=== PATIENT | female | born 1955 | race Caucasian/White ===

== ENCOUNTER 2017-12-23 08:35 | Inpatient (IN) ==
[2017-12-23] MEDS ORDERED: Ipratropium/Albuterol Neb 3 ML IH ONE (08:49)
[2017-12-23] MEDS ORDERED: Albuterol 2.5 MG/3 ML NEBULIZER IH ONE (08:49)
[2017-12-23] MEDS ORDERED: predniSONE 20 MG TABLET PO ONE (08:49)
[2017-12-23] MEDS ORDERED: 0.9 % Sodium Chloride 1,000 ML IVC ONE (08:49)
--- NOTE | 2017-12-23 08:53 | Emergency Department Note ---
Disposition Clinical Impression: Acute exacerbation of chronic obstructive airways disease Community acquired pneumonia Qualifiers: Laterality: left Lung location: unspecified part of lung Qualified Code(s): J18.9 - Pneumonia, unspecified organism Disposition: Admitted As Inpatient Condition: Fair Referrals: Shawn Mccoy MD [Primary Care Provider] - Forms: ED Satisfaction Letter Time of Disposition: 12:48 General Adult HPI - General Chief complaint: ED Shortness of Breath/Dyspnea Stated complaint: ELIZABETH Time Seen by Provider: 12/23/17 08:42 Source: patient, family Mode of arrival: ambulatory Limitations: no limitations - History of Present Illness HPI Narrative: This is a 62-year-old female for history of COPD who reports a cough with pleuritic chest pain worsening over the course of the last 2 weeks. Cough is nonproductive. In addition, she reports episodes of lightheadedness that have been worsening during this time. She denies chest pain separate from the cough. No nausea or vomiting. She states it has been a long time since she had a course of prednisone because of her COPD. Pain Scale: 9 - Related Data Previous Rx's Medication Instructions Recorded Tramadol HCl [Ultram] 50 mg PO TID PRN 4 Days #12 tab 10/30/17 Lidocaine Patch [Lidoderm 5% patch] 1 each TP DAILY 7 Days #7 11/18/17 adh..patch Allergies Allergy/AdvReac Type Severity Reaction Status Date / Time No Known Allergies Allergy Verified 12/23/17 08:40 All systems ED: reviewed and negative except as stated. Cardiovascular: Reports: chest pain, dyspnea on exertion Respiratory: Reports: dyspnea Past Medical History - Past Medical History Medical history: Reports: arthritis, kidney stones, osteoporosis Psychiatric history: Reports: depression [employer]WORKER [employer] history: Reports: no [employer]WORKER [employer]OR history - Social History Smoking Status: Current every day smoker Smokeless Tobacco Status: No Alcohol use: Reports: none Drug use: Reports: none Physical Exam - General Limitations: no limitations - Head Head exam: atraumatic, normocephalic, normal inspection - Eye Eye exam: Present: normal appearance, PERRL, EOMI - Chest Chest inspection: Present: normal inspection, symmetric chest wall rise - Respiratory Respiratory exam: Present: respiratory distress (Mild respiratory distress), prolonged expiratory phase, other (There are clear breath sounds in the apices and bases, diminished bibasilar) - Cardiovascular Cardiovascular exam: Present: normal rhythm, tachycardia, normal heart sounds - Abdominal Exam Abdominal exam: Present: soft, Non-Tender. Absent: tenderness, distention, guarding, rebound, rigidity - Extremities Exam Extremities exam: Present: normal inspection, full ROM. Absent: tenderness, pedal edema - Neurological Exam Neurological exam: Present: alert, oriented X3 - Psychiatric Psychiatric exam: Present: normal affect, normal mood - Skin Skin exam: Present: warm, dry, intact, normal color Course Course Narrative: This is a 62-year-old female with history of COPD no with pleuritic chest pain and cough worsening for the last 2 weeks, concerning for COPD exacerbation, pneumonia, or pulmonary embolism. Vital Signs Temperature 97.6 F 12/23/17 08:40 Pulse Rate 133 12/23/17 08:40 Respiratory Rate 24 12/23/17 08:40 Blood Pressure 102/68 12/23/17 08:40 O2 Sat by Pulse Oximetry 84 12/23/17 08:40 Temperature 97.6 F 12/23/17 08:52 Pulse Rate 106 12/23/17 12:20 Respiratory Rate 21 12/23/17 12:20 Blood Pressure 123/79 12/23/17 12:20 O2 Sat by Pulse Oximetry 98 12/23/17 09:42 Oxygen Delivery Oxygen Delivery Nasal Cannula Medical Decision Making - [facility] Narrative Medical decision making narrative: This is a 62-year-old female who appears to have serious left lung pathology. Whether she has a significant pneumonia because of left main bronchus plugging or neoplastic process is unclear. Cefepime and azithromycin were given similar this could be a pneumonia I discussed her case with the on-call hospitalist, who accepted her for admission I discussed the case with the on-call online marketing analyst, and a consult for him, and ordered her to be nothing by mouth after midnight. - Lab Data Lab results narrative: CBC showed anemia at 11.3 and 34.1 BMP showed hypokalemia at 3.0 Troponin was low D-dimer was grossly elevated at 1391 Result diagrams: 12/23/17 09:03 12/23/17 09:03 Lab Results 12/23/17 12/23/17 12/23/17 Range/Units 09:03 09:03 09:03 WBC 7.8 (4.3-11.1) K/mcL RBC 3.84 (3.82-4.97) M/mcL Hgb 11.3 L (11.5-15.4) g/dL Hct 34.1 L (35.3-44.9) % MCV 88.8 (83.0-100.0) fL MCH 29.4 (28.0-33.3) pg MCHC 33.1 (31.6-35.5) g/dL RDW 14.5 (11.5-14.5) % Plt Count 268 (140-400) K/mcL MPV 8.1 L (9.4-12.4) fL Immature Gran % 0.6 (0-4) % Seg Neutrophils % 84.1 % Lymphocytes % 7.3 % Monocytes % 7.9 % Eosinophils % 0.0 % Basophils % 0.1 % Neutrophils # 6.5 (1.6-8.9) K/mcL Lymphocytes # 0.6 (0.6-4.6) K/mcL Monocytes # 0.6 (0.0-1.3) K/mcL Eosinophils # 0.0 (0.0-0.6) K/mcL Basophils # 0.0 (0.0-0.2) K/mcL D-Dimer 1391 H (0-500) ng/mLFEU Sodium 138 (136-145) mEq/L Potassium 3.0 L (3.5-5.1) mEq/L Chloride 103 (98-107) mEq/L Carbon Dioxide 26 (23-29) mEq/L BUN 11 (8-23) mg/dL Creatinine 0.54 L (0.60-1.20) mg/dL Est GFR ( Amer) > 60 (> 60) Est GFR (Non-Af Amer) > 60 (> 60) BUN/Creatinine Ratio 20 (6-26) Glucose 148 H (70-105) mg/dL Calculated Osmolality 288 (280-300) Lactic Acid (0.5-2.2) mmol/L Calcium 8.6 (8.6-10.3) mg/dL Troponin I < 0.03 (< 0.04) ng/mL 12/23/17 Range/Units 09:03 WBC (4.3-11.1) K/mcL RBC (3.82-4.97) M/mcL Hgb (11.5-15.4) g/dL Hct (35.3-44.9) % MCV (83.0-100.0) fL MCH (28.0-33.3) pg MCHC (31.6-35.5) g/dL RDW (11.5-14.5) % Plt Count (140-400) K/mcL MPV (9.4-12.4) fL Immature Gran % (0-4) % Seg Neutrophils % % Lymphocytes % % Monocytes % % Eosinophils % % Basophils % % Neutrophils # (1.6-8.9) K/mcL Lymphocytes # (0.6-4.6) K/mcL Monocytes # (0.0-1.3) K/mcL Eosinophils # (0.0-0.6) K/mcL Basophils # (0.0-0.2) K/mcL D-Dimer (0-500) ng/mLFEU Sodium (136-145) mEq/L Potassium (3.5-5.1) mEq/L Chloride (98-107) mEq/L Carbon Dioxide (23-29) mEq/L BUN (8-23) mg/dL Creatinine (0.60-1.20) mg/dL Est GFR ( Amer) (> 60) Est GFR (Non-Af Amer) (> 60) BUN/Creatinine Ratio (6-26) Glucose (70-105) mg/dL Calculated Osmolality (280-300) Lactic Acid 0.8 (0.5-2.2) mmol/L Calcium (8.6-10.3) mg/dL Troponin I (< 0.04) ng/mL - Radiology Data Radiology results reviewed: Yes I reviewed the patient's radiology results. CT chest showed a masslike consolidation with volume loss of the left upper and lower lobes as well as obstruction of the left mainstem bronchus concerning for infectious or neoplastic process. - EKG Data EKG #1 EKG attestation: Yes I reviewed and interpreted this EKG. EKG results narrative: ECG shows to sinus tachycardia, 112 bpm, wandering baseline, no ST elevations or depressions, normal T waves Critical Care Time Critical Care Time: Yes Total Critical Care Time: 25 Attestation: 25 minutes of critical care time was spent independent of other procedures.
[2017-12-23 09:16] LABS: Basophils % 0.1 %; Hematocrit 34.1 % (35.3-44.9); Hemoglobin 11.3 g/dL (11.5-15.4); Immature Granulocytes % 0.6 % (0-4); Lymphocytes # 0.6 K/mcL (0.6-4.6); Lymphocytes % 7.3 %; Mean Corpuscular HGB Conc 33.1 g/dL (31.6-35.5); Mean Corpuscular Hemoglobin 29.4 pg (28.0-33.3); Mean Corpuscular Volume 88.8 fL (83.0-100.0); Mean Platelet Volume 8.1 fL (9.4-12.4); Monocytes # 0.6 K/mcL (0.0-1.3); Monocytes % 7.9 %; Neutrophils # 6.5 K/mcL (1.6-8.9); Platelet Count 268 K/mcL (140-400); Red Blood Count 3.84 M/mcL (3.82-4.97); Red Cell Distribution Width 14.5 % (11.5-14.5); Segmented Neutrophils % 84.1 %
[2017-12-23 09:42] LABS: Troponin I < 0.03 ng/mL (< 0.04)
[2017-12-23 09:43] LABS: BUN/Creatinine Ratio 20 (6-26); Blood Urea Nitrogen 11 mg/dL (8-23); Calcium 8.6 mg/dL (8.6-10.3); Carbon Dioxide 26 mEq/L (23-29); Chloride 103 mEq/L (98-107); Glucose 148 mg/dL (70-105); Osmolality,Calculated 288 (280-300); Sodium 138 mEq/L (136-145); eGFR For Non-African Americans > 60 (> 60)
[2017-12-23] MEDS ORDERED: Isovue-370 500 ML INFUS..BTL IV ONE (11:10)
[2017-12-23] MEDS ORDERED: Azithromycin 250 MG TABLET PO ONE (12:22)
[2017-12-23] MEDS ORDERED: Naloxone 0.4 MG/ML INJ IVP PRN (14:16)
--- NOTE | 2017-12-23 14:21 | Internal Med History&Physical ---
<Delroy Cooney S - Last Filed: 12/23/17 14:16> Date of Encounter: 12/23/17 Time of Encounter: 14:20 Internal Medicine - H&P: HPI Chief complaint: "SOB" Admitted From: Home Plans for Post Hospital Care: Home History of present illness: Ms. Mae is a 62 year old female with PMH of COPD, anxiety, arthritis, kidney stones, depression, and osteoporosis. She reports that for the last week she has had URI symptoms and cough. Cough has been nonproductive and she states that she has been feeling very weak. The pt states she has a hx of COPD and that she has been having increasing SOB from her baseline. She doesn't take nebulizers as much as she should, according to her. The pt is requring 4L of O2 at the hospital but denies home oxygen use. Pt isn't very active and states that she needs to stop to breathe and has trouble taking a deep breath. The pt has reproducable chest pain in the sternal area most likely secondary to coughing. Pt has no hx of [place] or LHC. She denies a previous hx of cardiac workup. The pt denies weight loss, fevers, chills, n/v/d, abd pain, or edema. In the ER the pt has a (-) troponin, lactic acid of 0.8. D dimer is 1391 CXR showed Left-sided mediastinal shift, likely related to left-sided volume loss, new since November 18, 2017. Near complete opacification of the left hemithorax, likely related to obstructive atelectasis versus pneumonia, new since November 18, 2017. Multiple lung nodules in right hemithorax measuring up to 2 cm, may be related to metastatic disease or infection, new since April 26, 2011. CT chest showed -no evidence of acute pulmonary emobli -7 x 4 cm masslike consolidation at the left hilar/parahilar region, may be related to neoplastic process, atelectasis or infection. -Multiple nodular consolidations in the right hemithorax, with the largest measuring up to 1.4 cm in the peripheral right lower lobe, may be related to infection/inflammation or metastatic disease, new since August 31, 2017. -Bilateral pleural effusions, large on the left and mild on the right, new since the prior study. -Tissue sampling with bronchoscopy may be beneficial. Past Med Surg Social Fam HX - Past Medical History Medical history: arthritis, kidney stones, osteoporosis Additional medical history: current right kidney stones- 12/2017 Psychiatric history: depression - Past Surgical History Additional surgical history: back surgery - Social History Smoking Status: Current every day smoker Smokeless Tobacco Status: No Alcohol use: none Drug use: none Internal Medicine - H&P: Meds Albuterol Sulfate [Ventolin Hfa] 2 puff IH Q4H PRN 12/23/17 [History] Amitriptyline HCl [Amitriptyline HCl] 150 mg PO HS 12/23/17 [History] Aspirin [Lo-Dose Aspirin EC] 81 mg PO DAILY 12/23/17 [History] Biotin 1 mg PO DAILY 12/23/17 [History] Budesonide/Formoterol 80/4.5 [Symbicort 80/4.5] 2 puff IH BID 12/23/17 [History ] Meloxicam [Meloxicam] 7.5 mg PO DAILY 12/23/17 [History] Multivitamin [One Daily Essential] 1 tab PO DAILY 12/23/17 [History] Multivits Min/Iron/FA/Herb#186 [Hair, Skin & Nails Caplet] 1 tab PO DAILY [History] Omeprazole [PriLOSEC] 20 mg PO DAILY 12/23/17 [History] Prazosin [Minipress] 1 mg PO HS 12/23/17 [History] Tizanidine HCl 2 mg PO Q8H PRN 12/23/17 [History] Trazodone HCl 100 mg PO HS 12/23/17 [History] Turmeric Root Extract [Turmeric] 500 mg PO DAILY 12/23/17 [History] Venlafaxine HCl [Venlafaxine HCl ER] 150 mg PO DAILY 12/23/17 [History] Vitamin B Complex [B Complex] 1 tab PO DAILY 12/23/17 [History] diazePAM [Valium] 3 mg PO TID PRN 12/23/17 [History] 3 Allergy/AdvReac Type Severity Reaction Status Date / Time No Known Allergies Allergy Verified 12/23/17 13:19 All Systems PM: A 10-system review of systems was performed and is negative for pertinent findings except as documented above in the HPI. - Constitutional Constitutional: fatigue, no chills, no fever(s) - Cardiovascular Cardiovascular ROS IM: chest pain, dyspnea, dyspnea on exertion, no lightheadedness, no palpitations, no paroxysmal nocturnal dyspnea - Respiratory Respiratory: cough, dyspnea on exertion, wheezing - Gastrointestinal Gastrointestinal: no abdominal pain, no nausea, no vomiting - Musculoskeletal Musculoskeletal ROS IM: no joint swelling, no muscle cramps - Integumentary Integumentary IM: no erythema - Neurological Neurological ROS: no numbness, no weakness - Psychiatric Psychiatric: depression - Constitutional Vitals: Temp Pulse Resp BP Pulse Ox 97.6 F 117 22 138/95 95 12/23/17 08:52 12/23/17 13:05 12/23/17 13:05 12/23/17 13:05 12/23/17 13:05 Exam: general - nad , aox3 cardio - tacycardia, reproducible chest pain in epigastric area lungs - decreasedbreath sounds left >right, mild crackles abd - NTND, no rebound or guarding skin - intact extremities - no edema Internal Med - H&P Results - Labs CBC & Chem 7: 12/23/17 09:03 12/23/17 09:03 - Assessment and plan (1) Acute exacerbation of chronic obstructive airways disease Current Visit: Yes Status: Acute Assessment and plan: Pt has hx of COPD, reports that the last week has been having increasing SOB from baseline. Has URI symptoms, including nonproductive cough. Denies weight loss, fevers/chills. In the ER the pt has a (-) troponin, lactic acid of 0.8. D dimer is 1391 CXR showed Left-sided mediastinal shift, likely related to left-sided volume loss, new since November 18, 2017. Near complete opacification of the left hemithorax, likely related to obstructive atelectasis versus pneumonia, new since November 18, 2017. Multiple lung nodules in right hemithorax measuring up to 2 cm, may be related to metastatic disease or infection, new since April 26, 2011. CT chest showed -no evidence of acute pulmonary emobli -7 x 4 cm masslike consolidation at the left hilar/parahilar region, may be related to neoplastic process, atelectasis or infection. -Multiple nodular consolidations in the right hemithorax, with the largest measuring up to 1.4 cm in the peripheral right lower lobe, may be related to infection/inflammation or metastatic disease, new since August 31, 2017. -Bilateral pleural effusions, large on the left and mild on the right, new since the prior study. -Tissue sampling with bronchoscopy may be beneficial. -Nodular prominence of the right adrenal gland measuring 1.1 x 1.8 cm, new since the prior study, suspicious for metastatic disease. -Mild chronic appearing anterior wedge deformity of T5, new since February 28, 2011. Lytic lesion in the anterior aspect of T5 vertebral body, likely new since February 28, 2011. Bony metastasis cannot be excluded. Plan: -azithromycin 500mg PO daily, rocephin 1000mg IVP -Robutusin 10mL q6hr scheduled -albuterol 3mL q4hr and q6hr prn SOB/wheeze -prednisone 60mg PO daily -NPO at midnight for bronchoscopy -keep o2 >90% -cbc in AM -cmp in AM -check myoplasma IgM and strep pneumo/legionella urine antigens (2) Community acquired pneumonia Current Visit: Yes Status: Acute Assessment and plan: Pt reports increasing SOB and cough. She has a 40+ year smoking hx. -denies fever/chills -denies weight loss -denies sputum production CXR showed Left-sided mediastinal shift, likely related to left-sided volume loss, new since November 18, 2017. Near complete opacification of the left hemithorax, likely related to obstructive atelectasis versus pneumonia, new since November 18, 2017. Multiple lung nodules in right hemithorax measuring up to 2 cm, may be related to metastatic disease or infection, new since April 26, 2011. Plan: -azithromycin 500mg PO daily, rocephin 1g IV q24hr -duonebs q4hr and q6hr prn sob/wheeze -10mL Robutusin q6hr scheduled -PO prednisone 40mg daily -check myoplasma IgM and strep pneumo/legionella urine antigens Qualifiers: Laterality: left Lung location: unspecified part of lung Qualified Code(s ): J18.9 - Pneumonia, unspecified organism (3) Lung cancer Current Visit: Yes Status: Acute Assessment and plan: CXR showed Left-sided mediastinal shift, likely related to left-sided volume loss, new since November 18, 2017. Near complete opacification of the left hemithorax, likely related to obstructive atelectasis versus pneumonia, new since November 18, 2017. Multiple lung nodules in right hemithorax measuring up to 2 cm, may be related to metastatic disease or infection, new since April 26, 2011. CT chest showed -no evidence of acute pulmonary emobli -7 x 4 cm masslike consolidation at the left hilar/parahilar region, may be related to neoplastic process, atelectasis or infection. -Multiple nodular consolidations in the right hemithorax, with the largest measuring up to 1.4 cm in the peripheral right lower lobe, may be related to infection/inflammation or metastatic disease, new since August 31, 2017. -Bilateral pleural effusions, large on the left and mild on the right, new since the prior study. -Tissue sampling with bronchoscopy may be beneficial. -Nodular prominence of the right adrenal gland measuring 1.1 x 1.8 cm, new since the prior study, suspicious for metastatic disease. -Mild chronic appearing anterior wedge deformity of T5, new since February 28, 2011. Lytic lesion in the anterior aspect of T5 vertebral body, likely new since February 28, 2011. Bony metastasis cannot be excluded. Elevated d-dimer 1391 Plan: -bronchoscopy in the morning, NPO at midnight -stat pulmonology consult, DR Paige already spoken to. Will do procedure in AM -r/o metastatic disease, may benefit from PET scan (4) Hypokalemia Current Visit: Yes Status: Acute Assessment and plan: Potassium of 3.0 on admission -replaced with 40mEq potassium chloride PO BID -recheck CMP in AM - Time Spent With Patient Total time spent is greater than 50% in coordination of care (as documented) at patient's floor/unit and/or counseling patient: 25 - 35 minutes <Lilian Sandhu - Last Filed: 12/23/17 15:47> Date of Encounter: 12/23/17 Internal Medicine - H&P: HPI History of present illness: Ms. Mae is a 62 year old female All Systems PM: A 10-system review of systems was performed and is negative for pertinent findings except as documented above in the HPI. - Constitutional Vitals: Temp Pulse Resp BP Pulse Ox 97.6 F 105 18 127/79 93 12/23/17 15:01 12/23/17 15:01 12/23/17 15:42 12/23/17 15:01 12/23/17 15:42 Internal Med - H&P Results - Labs CBC & Chem 7: 12/23/17 09:03 12/23/17 09:03 - Assessment and plan (1) Community acquired pneumonia Current Visit: Yes Status: Acute Qualifiers: Laterality: left Lung location: unspecified part of lung Qualified Code(s ): J18.9 - Pneumonia, unspecified organism (2) Acute exacerbation of chronic obstructive airways disease Current Visit: Yes Status: Acute (3) Lung cancer Current Visit: Yes Status: Acute Qualifiers: Laterality: unspecified laterality Lung location: unspecified part of lung Qualified Code(s): C34.90 - Malignant neoplasm of unspecified part of unspecified bronchus or lung (4) Hypokalemia Current Visit: Yes Status: Acute - Time Spent With Patient Total time spent is greater than 50% in coordination of care (as documented) at patient's floor/unit and/or counseling patient: - Attending Attestation I have seen and examined this patient independently. I have discussed with resident physician Dr. Cooney regarding the management plan. Agree with the documentation.
[2017-12-23] MEDS ORDERED: Ipratropium/Albuterol Neb 3 ML IH PRN (14:35)
[2017-12-23] MEDS ORDERED: Azithromycin 250 MG TABLET PO SCH (14:45)
[2017-12-23] MEDS: predniSONE 20 MG TABLET PO SCH (15:37)
[2017-12-23] MEDS: cefTRIAXone 1,000 MG in Water for inj. (sterile) 20 ML 10 ML IVP SCH (15:37)
[2017-12-23] MEDS: Ipratropium/Albuterol Neb 3 ML IH SCH ×2 (15:41→22:36)
[2017-12-23] MEDS ORDERED: tiZANidine 4 MG TABLET PO PRN (15:43)
[2017-12-23] MEDS ORDERED: Cefepime HCl 1,000 MG in Water for inj. (sterile) 20 ML 10 ML IVP SCH (16:00)
[2017-12-23] MEDS: Nicotine 21 MG PATCH.TD24 TD SCH (16:23)
[2017-12-23] MEDS: *HR* Heparin 5,000 UNIT/ML VIAL SQ SCH (16:53)
[2017-12-23] MEDS: GuaiFENesin/Codeine Oral Soln 5 ML UDC PO SCH ×2 (16:53→23:59)
[2017-12-23] MEDS: traZODone 50 MG TABLET PO SCH (20:16)
[2017-12-23] MEDS: Budesonide/Formoterol 80/4.5 MDI IH SCH (22:36)
[2017-12-24] MEDS: Ipratropium/Albuterol Neb 3 ML IH SCH ×4 (03:45→21:52)
[2017-12-24 04:08] LABS: Basophils % 0.2 %; Hematocrit 29.1 % (35.3-44.9); Immature Granulocytes % 0.6 % (0-4); Lymphocytes # 0.8 K/mcL (0.6-4.6); Lymphocytes % 11.3 %; Mean Corpuscular HGB Conc 32.6 g/dL (31.6-35.5); Mean Corpuscular Hemoglobin 28.7 pg (28.0-33.3); Mean Corpuscular Volume 87.9 fL (83.0-100.0); Mean Platelet Volume 8.6 fL (9.4-12.4); Monocytes # 0.4 K/mcL (0.0-1.3); Monocytes % 6.5 %; Neutrophils # 5.4 K/mcL (1.6-8.9); Platelet Count 281 K/mcL (140-400); Red Blood Count 3.31 M/mcL (3.82-4.97); Red Cell Distribution Width 14.4 % (11.5-14.5); Segmented Neutrophils % 81.4 %
[2017-12-24 04:10] LABS: Hemoglobin 9.5 g/dL (11.5-15.4)
[2017-12-24 04:14] LABS: INR 1.2; Prothrombin Time 13.7 Seconds (9.4-12.1)
[2017-12-24 04:31] LABS: Alanine Aminotransferase 11 Units/L (7-52); Albumin 2.8 g/dL (3.5-5.7); Albumin/Globulin Ratio 1.1 (1.1-2.2); Alkaline Phosphatase 116 Units/L (34-104); Aspartate Amino Transferase 11 Units/L (13-39); BUN/Creatinine Ratio 22 (6-26); Bilirubin,Total 0.2 mg/dL (0.3-1.0); Blood Urea Nitrogen 8 mg/dL (8-23); Calcium 8.4 mg/dL (8.6-10.3); Carbon Dioxide 23 mEq/L (23-29); Chloride 109 mEq/L (98-107); Globulin 2.6 g/dL (2.4-3.5); Glucose 125 mg/dL (70-105); Magnesium 2.1 mg/dL (1.6-2.6); Osmolality,Calculated 292 (280-300); Phosphorous 2.7 mg/dL (2.7-4.5); Sodium 141 mEq/L (136-145); Total Protein 5.4 g/dL (6.4-8.9); eGFR For Non-African Americans > 60 (> 60)
[2017-12-24] MEDS: GuaiFENesin/Codeine Oral Soln 5 ML UDC PO SCH ×4 (05:24→23:21)
[2017-12-24] MEDS: *HR* Heparin 5,000 UNIT/ML VIAL SQ SCH ×2 (05:24→17:09)
[2017-12-24] MEDS ORDERED: *HR* Midazolam HCl 5 MG/5 ML VIAL IVP ONE (07:02)
[2017-12-24] MEDS ORDERED: *HR* FentaNYL (PF) 100 MCG/2 ML VIAL ONE ×2 (07:03→07:36)
[2017-12-24] MEDS ORDERED: Lidocaine Viscous Oral Soln 15 ML SOLUTION ONE (07:03)
[2017-12-24] MEDS ORDERED: Ondansetron 4 MG/2 ML VIAL ONE (07:36)
[2017-12-24] MEDS ORDERED: Dexamethasone 4 MG/ML VIAL ONE (07:36)
[2017-12-24] MEDS ORDERED: *HR* Succinylcholine 200 MG/10 ML VIAL IVP ONE (07:36)
[2017-12-24] MEDS ORDERED: Lidocaine -MPF 2% 2 ML VIAL ONE (07:36)
[2017-12-24] MEDS ORDERED: *HR* Propofol 200 MG/20 ML VIAL IVP ONE (07:37)
[2017-12-24] MEDS ORDERED: Lidocaine -MPF 4% 5 ML AMPUL ONE (07:40)
[2017-12-24] MEDS ORDERED: *HR* PHENYLEPHRINE 1,000 MCG/10 ML SYRINGE IVP ONE (08:06)
--- NOTE | 2017-12-24 08:12 | Anesthesia Evaluation PreOp ---
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) Other Medical History: Other (ANEMIA, RA) Anesthesia History: No Prior Anesthetic Complications, Past Anesthesia Alcohol Use: none Drug use: none Medications and Allergies Albuterol Sulfate [Ventolin Hfa] 2 puff IH Q4H PRN 12/23/17 [History] Amitriptyline HCl [Amitriptyline HCl] 150 mg PO HS 12/23/17 [History] Aspirin [Lo-Dose Aspirin EC] 81 mg PO DAILY 12/23/17 [History] Biotin 1 mg PO DAILY 12/23/17 [History] Budesonide/Formoterol 80/4.5 [Symbicort 80/4.5] 2 puff IH BID 12/23/17 [History ] Meloxicam [Meloxicam] 7.5 mg PO DAILY 12/23/17 [History] Multivitamin [One Daily Essential] 1 tab PO DAILY 12/23/17 [History] Multivits Min/Iron/FA/Herb#186 [Hair, Skin & Nails Caplet] 1 tab PO DAILY [History] Omeprazole [PriLOSEC] 20 mg PO DAILY 12/23/17 [History] Prazosin [Minipress] 1 mg PO HS 12/23/17 [History] Tizanidine HCl 2 mg PO Q8H PRN 12/23/17 [History] Trazodone HCl 100 mg PO HS 12/23/17 [History] Turmeric Root Extract [Turmeric] 500 mg PO DAILY 12/23/17 [History] Venlafaxine HCl [Venlafaxine HCl ER] 150 mg PO DAILY 12/23/17 [History] Vitamin B Complex [B Complex] 1 tab PO DAILY 12/23/17 [History] diazePAM [Valium] 3 mg PO TID PRN 12/23/17 [History] 3 Allergy/AdvReac Type Severity Reaction Status Date / Time No Known Allergies Allergy Verified 12/23/17 13:19 - Meds/Allergy Pre-op Review Medications Reviewed: Yes Allergies Reviewed: Yes Anesthesia Results - Labs 12/24/17 03:24 12/24/17 03:24 Abnormal Labs, Last 24 hours 12/24/17 12/24/17 12/24/17 03:24 03:24 03:24 RBC 3.31 L Hgb 9.5 L D Hct 29.1 L MPV 8.6 L PT 13.7 H D-Dimer Potassium Chloride 109 H Creatinine 0.37 L Glucose 125 H Calcium 8.4 L Total Bilirubin 0.2 L AST 11 L Alkaline Phosphatase 116 H Serum Total Protein 5.4 L Albumin 2.8 L 12/23/17 12/23/17 12/23/17 09:03 09:03 09:03 RBC Hgb 11.3 L Hct 34.1 L MPV 8.1 L PT D-Dimer 1391 H Potassium 3.0 L Chloride Creatinine 0.54 L Glucose 148 H Calcium Total Bilirubin AST Alkaline Phosphatase Serum Total Protein Albumin - Imaging Additional studies: CTA CHEST: No evidence of acute pulmonary emboli. Volume loss in the left hemithorax, with left shift of the mediastinum. Obstruction of the left mainstem bronchus, with partial collapse of the left upper and lower lobes, may be related to tumor or mucous plugging. 7 x 4 cm masslike consolidation at the left hilar/parahilar region, may be related to neoplastic process, atelectasis or infection. Multiple nodular consolidations in the right hemithorax, with the largest measuring up to 1.4 cm in the peripheral right lower lobe, may be related to infection/inflammation or metastatic disease, new since August 31, 2017. Bilateral pleural effusions, large on the left and mild on the right, new since the prior study. Nonspecific mild mediastinal and right hilar lymphadenopathy, may be related to infection/inflammation versus metastatic disease. Nodular prominence of the right adrenal gland measuring 1.1 x 1.8 cm, new since the prior study, suspicious for metastatic disease. Mild chronic appearing anterior wedge deformity of T5, new since February 28, 2011. Lytic lesion in the anterior aspect of T5 vertebral body, likely new since February 28, 2011. Bony metastasis cannot be excluded. Septal thickening, likely related to mild CHF. Bronchial wall thickening, likely related to small airway disease or bronchiolitis. Mucous plugging. Tissue sampling with bronchoscopy may be beneficial. 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 PROFESSOR LOC: Oriented (AWAKE, ALERT) - Cardiac Rhythm: Regular - Pulmonary Breath Sounds: bilateral Clear Respiratory Effort: Symmetrical - Additional Findings Active Medications Albuterol/Ipratropium (Duoneb) 3 ml IH [id number] [place] Stop: 06/24/18 16:01 Last Admin: 12/24/17 03:45 Dose: 3 ml Albuterol/Ipratropium (Duoneb) 3 ml IH [id number] PRN PRN Reason: Shortness Of Breath/Wheezing Stop: 06/24/18 14:36 Amitriptyline HCl (Elavil) 150 mg PO HS [facility] Stop: 06/24/18 21:01 Last Admin: 12/23/17 20:15 Dose: 150 mg Aspirin (Aspirin Ec) 81 mg PO DAILY [place] Stop: 06/25/18 09:01 Azithromycin (Zithromax) 500 mg PO DAILY [facility] Stop: 06/25/18 14:46 Budesonide/Formoterol Fumarate (Symbicort) 2 puff IH BID [place] PRN Reason: Protocol Stop: 06/24/18 21:01 Last Admin: 12/23/17 22:36 Dose: 2 puff Diazepam (Valium) 3 mg PO TID PRN PRN Reason: Anxiety Stop: 06/24/18 15:44 Guaifenesin/Codeine Phosphate (Robitussin W/Codeine) 10 ml PO Q6HR [place] PRN Reason: Protocol Stop: 06/24/18 18:01 Last Admin: 12/24/17 05:24 Dose: 10 ml Heparin Sodium (Porcine) (Heparin) 5,000 unit SQ Q12HCO [place] Stop: 06/24/18 18:01 Last Admin: 12/24/17 05:24 Dose: 5,000 unit Ceftriaxone Sodium 1,000 mg/ (Sterile Water) 10 mls @ 600 mls/hr IVP DAILY [facility] Stop: 06/24/18 15:01 Last Admin: 12/23/17 15:37 Dose: 600 mls/hr Naloxone HCl (Narcan) 0.4 mg IVP Q2MIN PRN PRN Reason: SEE COMMENTS Stop: 06/24/18 14:17 Nicotine (Nicoderm) 21 mg TD DAILY [facility] PRN Reason: Protocol Stop: 06/24/18 15:46 Last Admin: 12/23/17 16:23 Dose: 21 mg Omeprazole (Prilosec) 20 mg PO DAILY [facility] PRN Reason: Protocol Stop: 06/25/18 09:01 Prednisone (Prednisone) 40 mg PO DAILY [facility] Stop: 06/24/18 14:46 Last Admin: 12/23/17 15:37 Dose: 40 mg Tizanidine HCl (Zanaflex) 2 mg PO Q8H PRN PRN Reason: Muscle Pain Trazodone HCl (Trazodone) 100 mg PO HS [facility] Stop: 06/24/18 21:01 Last Admin: 12/23/17 20:16 Dose: 100 mg Venlafaxine HCl (Effexor Xr) 150 mg PO DAILY [facility] PRN Reason: Protocol Stop: 06/25/18 09:01 Anesthesia Assess/Plan ASA Score: 4 Modified Aruna Scale for Level of Consciousness: Cooperative, oriented, and tranquil Anesthetic Plan: General Monitoring Plan: Standard Monitors Recovery Plan: PACU
[2017-12-24] MEDS ORDERED: *HR* Midazolam HCl 2 MG/2 ML VIAL ONE (08:25)
--- NOTE | 2017-12-24 08:33 | Internal Med Progress Note ---
<ErosDelroy S - Last Filed: 12/24/17 08:31> Hospitalist Progress Note - Encounter Date of Encounter: 12/24/17 Time of Encounter: 07:45 - Subjective Interval History: Ms. Mae is a 62 year old female with PMH of COPD, anxiety, arthritis, kidney stones, depression, and osteoporosis. -last week has had URI symptoms and cough. Cough has been nonproductive and she states that she has been feeling very weak. -The pt states she has a hx of COPD and that she has been having increasing SOB from her baseline. -She doesn't take nebulizers as much as she should, according to her. -The pt is still requring 4L of O2 at the hospital but denies home oxygen use. In the ER the pt has a (-) troponin, lactic acid of 0.8. D dimer is 1391 CXR showed Left-sided mediastinal shift, likely related to left-sided volume loss, new since November 18, 2017. Near complete opacification of the left hemithorax, likely related to obstructive atelectasis versus pneumonia, new since November 18, 2017. Multiple lung nodules in right hemithorax measuring up to 2 cm, may be related to metastatic disease or infection, new since April 26, 2011. CT chest showed -no evidence of acute pulmonary emobli -7 x 4 cm masslike consolidation at the left hilar/parahilar region, may be related to neoplastic process, atelectasis or infection. -Multiple nodular consolidations in the right hemithorax, with the largest measuring up to 1.4 cm in the peripheral right lower lobe, may be related to infection/inflammation or metastatic disease, new since August 31, 2017. -Bilateral pleural effusions, large on the left and mild on the right, new since the prior study. -Tissue sampling with bronchoscopy may be beneficial. Stat pulmonolog consult placed -Dr Paige spoken to and will be performing a bronchoscopy on the pt today -she is getting ready to go down as I am talking to her -aside from anxiety and SOB, the pt has no complaints. She has no chest pain, N/ V/D, abd pain. - Exam Vitals: Temp Pulse Resp BP Pulse Ox 98.5 F 100 16 122/63 90 12/24/17 08:09 12/24/17 08:09 12/24/17 08:09 12/24/17 08:09 12/24/17 08:09 Exam: general - nad , aox3 cardio - tacycardia, reproducible chest pain in epigastric area lungs - decreasedbreath sounds left >right, mild crackles abd - NTND, no rebound or guarding skin - intact extremities - no edema - Assessment and Plan (1) Acute exacerbation of chronic obstructive airways disease Current Visit: Yes Status: Acute Assessment and Plan: Pt has hx of COPD, reports that the last week has been having increasing SOB from baseline. Has URI symptoms, including nonproductive cough. Denies weight loss, fevers/chills. In the ER the pt has a (-) troponin, lactic acid of 0.8. D dimer is 1391 CXR showed Left-sided mediastinal shift, likely related to left-sided volume loss, new since November 18, 2017. Near complete opacification of the left hemithorax, likely related to obstructive atelectasis versus pneumonia, new since November 18, 2017. Multiple lung nodules in right hemithorax measuring up to 2 cm, may be related to metastatic disease or infection, new since April 26, 2011. CT chest showed -no evidence of acute pulmonary emobli -7 x 4 cm masslike consolidation at the left hilar/parahilar region, may be related to neoplastic process, atelectasis or infection. -Multiple nodular consolidations in the right hemithorax, with the largest measuring up to 1.4 cm in the peripheral right lower lobe, may be related to infection/inflammation or metastatic disease, new since August 31, 2017. -Bilateral pleural effusions, large on the left and mild on the right, new since the prior study. -Tissue sampling with bronchoscopy may be beneficial. -Nodular prominence of the right adrenal gland measuring 1.1 x 1.8 cm, new since the prior study, suspicious for metastatic disease. -Mild chronic appearing anterior wedge deformity of T5, new since February 28, 2011. Lytic lesion in the anterior aspect of T5 vertebral body, likely new since February 28, 2011. Bony metastasis cannot be excluded. Plan: -azithromycin 500mg PO daily, rocephin 1000mg IVP -Robutusin 10mL q6hr scheduled -albuterol 3mL q4hr and q6hr prn SOB/wheeze -prednisone 60mg PO daily -NPO currently will be getting bronchoscopy this morning -keep o2 >90% -cbc in AM -cmp in AM -check myoplasma IgM and strep pneumo/legionella urine antigens -blood cultures pending -diazepam 3mg PO TID prn anxiety (2) Community acquired pneumonia Current Visit: Yes Status: Acute Assessment and Plan: Pt reports increasing SOB and cough. She has a 40+ year smoking hx. -denies fever/chills -denies weight loss -denies sputum production CXR showed Left-sided mediastinal shift, likely related to left-sided volume loss, new since November 18, 2017. Near complete opacification of the left hemithorax, likely related to obstructive atelectasis versus pneumonia, new since November 18, 2017. Multiple lung nodules in right hemithorax measuring up to 2 cm, may be related to metastatic disease or infection, new since April 26, 2011. Pt remains afebrile with no white count Plan: -azithromycin 500mg PO daily, rocephin 1g IV q24hr -duonebs q4hr and q6hr prn sob/wheeze -10mL Robutusin q6hr scheduled -PO prednisone 40mg daily -check myoplasma IgM and strep pneumo/legionella urine antigens -blood cultures pending (3) Lung cancer Current Visit: Yes Status: Suspected Assessment and Plan: CXR showed Left-sided mediastinal shift, likely related to left-sided volume loss, new since November 18, 2017. Near complete opacification of the left hemithorax, likely related to obstructive atelectasis versus pneumonia, new since November 18, 2017. Multiple lung nodules in right hemithorax measuring up to 2 cm, may be related to metastatic disease or infection, new since April 26, 2011. CT chest showed -no evidence of acute pulmonary emobli -7 x 4 cm masslike consolidation at the left hilar/parahilar region, may be related to neoplastic process, atelectasis or infection. -Multiple nodular consolidations in the right hemithorax, with the largest measuring up to 1.4 cm in the peripheral right lower lobe, may be related to infection/inflammation or metastatic disease, new since August 31, 2017. -Bilateral pleural effusions, large on the left and mild on the right, new since the prior study. -Tissue sampling with bronchoscopy may be beneficial. -Nodular prominence of the right adrenal gland measuring 1.1 x 1.8 cm, new since the prior study, suspicious for metastatic disease. -Mild chronic appearing anterior wedge deformity of T5, new since February 28, 2011. Lytic lesion in the anterior aspect of T5 vertebral body, likely new since February 28, 2011. Bony metastasis cannot be excluded. Elevated d-dimer 1391 Plan: -bronchoscopy today, currently NPO -stat pulmonology consult, DR Paige already spoken to. Will do procedure in AM -r/o metastatic disease, may benefit from PET scan (4) Hypokalemia Current Visit: Yes Status: Resolved Assessment and Plan: Potassium of 3.0 on admission -replaced with 40mEq potassium chloride PO BID -potassium 4 today -monitor electrolytes DVT Prophylaxis: heparinSQ - Time Spent with Patient Total time spent is greater than 50% in coordination of care (as documented) at patient's floor/unit and/or counseling patient: less than 15 minutes Plan of Care Discussed with: patient Internal Medicine: Result - Labs CBC & Chem 7: 12/24/17 03:24 12/24/17 03:24 Labs: Short CBC 12/24/17 Range/Units 03:24 WBC 6.6 (4.3-11.1) K/mcL Hgb 9.5 L D (11.5-15.4) g/dL Hct 29.1 L (35.3-44.9) % Plt Count 281 (140-400) K/mcL Neutrophils # 5.4 (1.6-8.9) K/mcL BMP 12/24/17 03:24 Sodium 141 Potassium 4.0 D Chloride 109 H Carbon Dioxide 23 BUN 8 Creatinine 0.37 L Glucose 125 H Calcium 8.4 L Liver Function 12/24/17 Range/Units 03:24 Total Bilirubin 0.2 L (0.3-1.0) mg/dL AST 11 L (13-39) Units/L ALT 11 (7-52) Units/L Alkaline Phosphatase 116 H (34-104) Units/L Albumin 2.8 L (3.5-5.7) g/dL - ABG Interpretation ABG results: PT/INR, D-dimer PT 13.7 Seconds (9.4-12.1) H 12/24/17 03:24 D-Dimer 1391 ng/mLFEU (0-500) H 12/23/17 09:03 Consult Discharge Plan - Plan Referrals: Shawn Mccoy MD [Primary Care Provider] - <Lilian Sandhu - Last Filed: 12/24/17 12:27> Hospitalist Progress Note - Encounter Date of Encounter: 12/24/17 - Exam Vitals: Temp Pulse Resp BP Pulse Ox 98.1 F 108 28 109/72 85 12/24/17 10:58 12/24/17 10:58 12/24/17 11:00 12/24/17 10:58 12/24/17 11:00 - Assessment and Plan (1) Community acquired pneumonia Current Visit: Yes Status: Acute (2) Acute exacerbation of chronic obstructive airways disease Current Visit: Yes Status: Acute (3) Lung cancer Current Visit: Yes Status: Suspected (4) Hypokalemia Current Visit: Yes Status: Resolved - Time Spent with Patient Total time spent is greater than 50% in coordination of care (as documented) at patient's floor/unit and/or counseling patient: Internal Medicine: Result - Labs CBC & Chem 7: 12/24/17 03:24 12/24/17 03:24 Labs: Short CBC 12/24/17 Range/Units 03:24 WBC 6.6 (4.3-11.1) K/mcL Hgb 9.5 L D (11.5-15.4) g/dL Hct 29.1 L (35.3-44.9) % Plt Count 281 (140-400) K/mcL Neutrophils # 5.4 (1.6-8.9) K/mcL BMP 12/24/17 03:24 Sodium 141 Potassium 4.0 D Chloride 109 H Carbon Dioxide 23 BUN 8 Creatinine 0.37 L Glucose 125 H Calcium 8.4 L Liver Function 12/24/17 Range/Units 03:24 Total Bilirubin 0.2 L (0.3-1.0) mg/dL AST 11 L (13-39) Units/L ALT 11 (7-52) Units/L Alkaline Phosphatase 116 H (34-104) Units/L Albumin 2.8 L (3.5-5.7) g/dL - ABG Interpretation ABG results: PT/INR, D-dimer PT 13.7 Seconds (9.4-12.1) H 12/24/17 03:24 D-Dimer 1391 ng/mLFEU (0-500) H 12/23/17 09:03 - Attending Attestation I have seen and examined this patient independently. I have discussed with resident physician Dr. Cooney regarding the management plan. Agree with the documentation. <Delroy Cooney S - Last Filed: 12/24/17 08:31> (2) Community acquired pneumonia Qualifiers: Laterality: left Lung location: unspecified part of lung Qualified Code(s): J18.9 - Pneumonia, unspecified organism <Lilian Sandhu - Last Filed: 12/24/17 12:27> (1) Community acquired pneumonia Qualifiers: Laterality: left Lung location: unspecified part of lung Qualified Code(s): J18.9 - Pneumonia, unspecified organism (3) Lung cancer Qualifiers: Laterality: unspecified laterality Lung location: unspecified part of lung Qualified Code(s): C34.90 - Malignant neoplasm of unspecified part of unspecified bronchus or lung
--- NOTE | 2017-12-24 08:41 | Pulmonology Consult Note ---
Date of Encounter: 12/24/17 Time of Encounter: 07:45 Assessment and Plan (1) Lesion of left lung Current Visit: Yes Status: Acute Reviewed CT chest personally and this is suspicious for post-obstructive pneumonia and bronchogenic lung cancer especially with adenopathy. I suspect there might be endobronchial lesion and I have explained to the patient finding of the CAT scan and recommended bronchoscopy recommended. The procedure , risks , benefits, complications, and expected outcomes have been reviewed. Benefits of diagnosis, as well as risks to include bleeding, infection, pneumothorax which may require surgical intervention, and in a small population. The patient is aware that sometimes test is nondiagnostic. Discussed with patient and agrees to proceed. This is discussed with primary team and thank you for the consultation. We will proceed to do bronchoscopy. (2) Hilar adenopathy Current Visit: Yes Status: Acute I suspect this could be metastatic and will need biopsy. Other differential diagnosis would be reactive from pneumonia. (3) Acute exacerbation of chronic obstructive airways disease Current Visit: Yes Status: Acute Systemic steroid and empiric antibiotic is recommended for this condition and continue bronchodilators. Patient was counseled about smoking cessation. History of Present Illness Consult date: 12/24/17 Requesting physician: Madiha Ramos Reason for consult: lung mass, abnormal CXR/CT Chief complaint: Dyspnea History of present illness: This is a very pleasant 62 year old female with history of COPD and multiple other medical problems who presented to the ER with URI like symptoms for last week and she has cough. She denies any hemoptysis and no significant sputum production. Patient has weakness and she had CT chest was abnormal and pulmonary consulted. She has increase dyspnea from her baseline. She is not on O2 at home and denies any weight loss and no fever or chills. She has history of smoking tobacco and she denies any hemoptysis. Past Med Surg Social Fam HX - Past Medical History Medical history: arthritis, COPD, kidney stones, osteoporosis Additional medical history: current right kidney stones- 12/2017 Psychiatric history: depression - Past Surgical History Additional surgical history: back surgery - Social History Smoking Status: Current every day smoker Smokeless Tobacco Status: No Alcohol use: none Drug use: none - Family History Father Hx Family Cardiac Disorders: Yes ([place],) Sister Hx Family Cardiac Disorders: Yes ([place]) Hx Family Cancer: Yes (lung ca) Hx Family Neurologic Disorders: Yes (2 CVAs) Medications and Allergies Albuterol Sulfate [Ventolin Hfa] 2 puff IH Q4H PRN 12/23/17 [History] Amitriptyline HCl [Amitriptyline HCl] 150 mg PO HS 12/23/17 [History] Aspirin [Lo-Dose Aspirin EC] 81 mg PO DAILY 12/23/17 [History] Biotin 1 mg PO DAILY 12/23/17 [History] Budesonide/Formoterol 80/4.5 [Symbicort 80/4.5] 2 puff IH BID 12/23/17 [History ] Meloxicam [Meloxicam] 7.5 mg PO DAILY 12/23/17 [History] Multivitamin [One Daily Essential] 1 tab PO DAILY 12/23/17 [History] Multivits Min/Iron/FA/Herb#186 [Hair, Skin & Nails Caplet] 1 tab PO DAILY [History] Omeprazole [PriLOSEC] 20 mg PO DAILY 12/23/17 [History] Prazosin [Minipress] 1 mg PO HS 12/23/17 [History] Tizanidine HCl 2 mg PO Q8H PRN 12/23/17 [History] Trazodone HCl 100 mg PO HS 12/23/17 [History] Turmeric Root Extract [Turmeric] 500 mg PO DAILY 12/23/17 [History] Venlafaxine HCl [Venlafaxine HCl ER] 150 mg PO DAILY 12/23/17 [History] Vitamin B Complex [B Complex] 1 tab PO DAILY 12/23/17 [History] diazePAM [Valium] 3 mg PO TID PRN 12/23/17 [History] 3 Allergy/AdvReac Type Severity Reaction Status Date / Time No Known Allergies Allergy Verified 12/23/17 13:19 All Systems: The remainder of the systems were reviewed and are negative Physical Examination Vital Signs: Vital Signs, Last 4 Hours Temp Pulse Resp BP Pulse Ox 12/24/17 08:09 98.5 F 100 16 122/63 90 12/24/17 06:21 98.0 F 100 22 134/76 90 12/24/17 05:38 97.7 F 104 18 119/81 97 General appearance: no acute distress Eyes: nonicteric Mallampati (class): 1 Neck: supple, no lymphadenopathy Effort: normal Inspection: hyperextended Auscultation: left: diminished breath sounds, right: rhonchi Percussion: left: dull, right: not dull Cardiovascular: regular rate and rhythm Gastrointestinal: normoactive bowel sounds, non-distended Extremities: no cyanosis normal mental status, non-focal exam mood appropriate Results - Laboratory Findings CBC and BMP: 12/24/17 03:24 12/24/17 03:24 PT/INR, D-dimer PT 13.7 Seconds (9.4-12.1) H 12/24/17 03:24 D-Dimer 1391 ng/mLFEU (0-500) H 12/23/17 09:03 Abnormal lab findings: Abnormal lab results RBC 3.31 M/mcL (3.82-4.97) L 12/24/17 03:24 Hgb 9.5 g/dL (11.5-15.4) L D 12/24/17 03:24 Hct 29.1 % (35.3-44.9) L 12/24/17 03:24 MPV 8.6 fL (9.4-12.4) L 12/24/17 03:24 PT 13.7 Seconds (9.4-12.1) H 12/24/17 03:24 D-Dimer 1391 ng/mLFEU (0-500) H 12/23/17 09:03 Chloride 109 mEq/L (98-107) H 12/24/17 03:24 Creatinine 0.37 mg/dL (0.60-1.20) L 12/24/17 03:24 Glucose 125 mg/dL (70-105) H 12/24/17 03:24 Calcium 8.4 mg/dL (8.6-10.3) L 12/24/17 03:24 Total Bilirubin 0.2 mg/dL (0.3-1.0) L 12/24/17 03:24 AST 11 Units/L (13-39) L 12/24/17 03:24 Alkaline Phosphatase 116 Units/L (34-104) H 12/24/17 03:24 Serum Total Protein 5.4 g/dL (6.4-8.9) L 12/24/17 03:24 Albumin 2.8 g/dL (3.5-5.7) L 12/24/17 03:24 - Microbiology Findings Microbiology Findings: Microbiology, Last 48 Hours 12/23/17 Unknown Legionella Antigen - Final Urine,Clean Catch Streptococcus pneumoniae Antigen (M - Final - Diagnostic Findings CT scan - chest: report reviewed, image reviewed - Clinical Findings Intake & Output: Intake & Output 12/23/17 12/24/17 12/24/17 23:59 07:59 15:59 Intake Total 500 / 500 0 / 0 Output Total 350 / 350 400 / 400 Balance 150 / 150 -400 / -400 Weight 48.7 kg Consult Discharge Plan - Plan Referrals: Shawn Mccoy MD [Primary Care Provider] -
[2017-12-24] MEDS ORDERED: *HR* EPINEPHrine 1 MG/10 ML SYRINGE INTRATRACH PRN (08:54)
[2017-12-24] MEDS ORDERED: Albuterol 2.5 MG/3 ML NEBULIZER ONE (09:59)
--- NOTE | 2017-12-24 10:19 | Anesthesia Evaluation Post Op ---
Date of Encounter: 12/24/17 Time of Encounter: 10:19 - Discharge PostOp Status: Transfer Patient to floor (Patient's vital signs have been reviewed. Patient is stable postoperatively and has adequately recovered from anesthesia. Patient is determined to have stable airway patency and respiratory function including respiratory rate and oxygen saturation. Patient has a stable heart rate, blood pressure and adequate hydration. Patients mental status is acceptable. Patients temperature is appropriate. Pain and nausea are adequately controlled.)
[2017-12-24] MEDS: cefTRIAXone 1,000 MG in Water for inj. (sterile) 20 ML 10 ML IVP SCH (10:39)
[2017-12-24] MEDS: Nicotine 21 MG PATCH.TD24 TD SCH (10:43)
[2017-12-24] MEDS: predniSONE 20 MG TABLET PO SCH (10:44)
[2017-12-24] MEDS: Venlafaxine XR (24 HR) 150 MG CAP.ER.24H PO SCH (10:44)
[2017-12-24] MEDS: Aspirin Enteric Coated 81 MG Tablet PO SCH (10:44)
[2017-12-24] MEDS: Budesonide/Formoterol 80/4.5 MDI IH SCH ×2 (11:00→21:52)
[2017-12-24] MEDS: Azithromycin 250 MG TABLET PO SCH (13:49)
[2017-12-24] MEDS: traZODone 50 MG TABLET PO SCH (23:21)
[2017-12-25] MEDS: Ipratropium/Albuterol Neb 3 ML IH SCH ×4 (04:00→22:04)
[2017-12-25] MEDS: *HR* Heparin 5,000 UNIT/ML VIAL SQ SCH ×2 (06:00→18:00)
[2017-12-25] MEDS: GuaiFENesin/Codeine Oral Soln 5 ML UDC PO SCH ×3 (06:00→17:54)
[2017-12-25 08:12] LABS: BUN/Creatinine Ratio 19 (6-26); Blood Urea Nitrogen 8 mg/dL (8-23); Calcium 8.2 mg/dL (8.6-10.3); Carbon Dioxide 28 mEq/L (23-29); Chloride 107 mEq/L (98-107); Glucose 95 mg/dL (70-105); Osmolality,Calculated 288 (280-300); Potassium 3.6 mEq/L (3.5-5.1); Sodium 140 mEq/L (136-145); eGFR For Non-African Americans > 60 (> 60)
[2017-12-25 08:27] LABS: Basophils % 0.1 %; Eosinophils % 0.1 %; Hematocrit 32.2 % (35.3-44.9); Hemoglobin 10.5 g/dL (11.5-15.4); Immature Granulocytes % 0.7 % (0-4); Lymphocytes # 1.3 K/mcL (0.6-4.6); Lymphocytes % 11.7 %; Mean Corpuscular HGB Conc 32.6 g/dL (31.6-35.5); Mean Corpuscular Hemoglobin 29.3 pg (28.0-33.3); Mean Corpuscular Volume 89.9 fL (83.0-100.0); Mean Platelet Volume 8.3 fL (9.4-12.4); Monocytes % 8.9 %; Platelet Count 336 K/mcL (140-400); Red Blood Count 3.58 M/mcL (3.82-4.97); Red Cell Distribution Width 14.7 % (11.5-14.5); Segmented Neutrophils % 78.5 %
[2017-12-25] MEDS: Aspirin Enteric Coated 81 MG Tablet PO SCH (08:34)
[2017-12-25] MEDS: diazePAM 2 MG TABLET PO PRN (08:35)
[2017-12-25] MEDS: Venlafaxine XR (24 HR) 150 MG CAP.ER.24H PO SCH (08:35)
[2017-12-25] MEDS: predniSONE 20 MG TABLET PO SCH (08:36)
[2017-12-25] MEDS: Nicotine 21 MG PATCH.TD24 TD SCH (08:36)
[2017-12-25] MEDS: cefTRIAXone 1,000 MG in Water for inj. (sterile) 20 ML 10 ML IVP SCH (08:37)
--- NOTE | 2017-12-25 09:13 | Internal Med Progress Note ---
<ErosDelroy S - Last Filed: 12/25/17 10:45> Hospitalist Progress Note - Encounter Date of Encounter: 12/25/17 Time of Encounter: 09:09 - Subjective Interval History: Ms. Mae is a 62 year old female with PMH of COPD, anxiety, arthritis, kidney stones, depression, and osteoporosis. -last week has had URI symptoms and cough. Cough has been nonproductive and she states that she has been feeling very weak. -The pt states she has a hx of COPD and that she has been having increasing SOB from her baseline. -She doesn't take nebulizers as much as she should, according to her. -The pt is still requring 4L of O2 at the hospital but denies home oxygen use. In the ER the pt has a (-) troponin, lactic acid of 0.8. D dimer is 1391 CXR showed Left-sided mediastinal shift, likely related to left-sided volume loss, new since November 18, 2017. Near complete opacification of the left hemithorax, likely related to obstructive atelectasis versus pneumonia, new since November 18, 2017. Multiple lung nodules in right hemithorax measuring up to 2 cm, may be related to metastatic disease or infection, new since April 26, 2011. CT chest showed -no evidence of acute pulmonary emobli -7 x 4 cm masslike consolidation at the left hilar/parahilar region, may be related to neoplastic process, atelectasis or infection. -Multiple nodular consolidations in the right hemithorax, with the largest measuring up to 1.4 cm in the peripheral right lower lobe, may be related to infection/inflammation or metastatic disease, new since August 31, 2017. -Bilateral pleural effusions, large on the left and mild on the right, new since the prior study. -Tissue sampling with bronchoscopy may be beneficial. Stat pulmonolog consult placed -Dr Paige spoken to and pt is s/p bronchoscopy 9..18 Pt has complaints of difficulty breathing this morning. Her O2 sat was 88% when I went to examine the pt. Nurse states the pt has been having difficulty breathing this morning. Pt has c/o chest pain and SOB. She states taking a deep breathe is extremely difficult - Exam Vitals: Temp Pulse Resp BP Pulse Ox 98.3 F 110 24 139/92 90 12/25/17 08:19 12/25/17 08:19 12/25/17 08:19 12/25/17 08:19 12/25/17 08:19 Exam: general - nad , aox3 cardio - tacycardia, reproducible chest pain in epigastric area lungs - decreased breath sounds left >right, mild crackles; pt tacypnic abd - NTND, no rebound or guarding skin - intact extremities - no edema - Assessment and Plan (1) Acute exacerbation of chronic obstructive airways disease Current Visit: Yes Status: Acute Assessment and Plan: Pt has hx of COPD, reports that the last week has been having increasing SOB from baseline. Has URI symptoms, including nonproductive cough. Denies weight loss, fevers/chills. In the ER the pt has a (-) troponin, lactic acid of 0.8. D dimer is 1391 CXR showed Left-sided mediastinal shift, likely related to left-sided volume loss, new since November 18, 2017. Near complete opacification of the left hemithorax, likely related to obstructive atelectasis versus pneumonia, new since November 18, 2017. Multiple lung nodules in right hemithorax measuring up to 2 cm, may be related to metastatic disease or infection, new since April 26, 2011. CT chest showed -no evidence of acute pulmonary emobli -7 x 4 cm masslike consolidation at the left hilar/parahilar region, may be related to neoplastic process, atelectasis or infection. -Multiple nodular consolidations in the right hemithorax, with the largest measuring up to 1.4 cm in the peripheral right lower lobe, may be related to infection/inflammation or metastatic disease, new since August 31, 2017. -Bilateral pleural effusions, large on the left and mild on the right, new since the prior study. -Tissue sampling with bronchoscopy may be beneficial. -Nodular prominence of the right adrenal gland measuring 1.1 x 1.8 cm, new since the prior study, suspicious for metastatic disease. -Mild chronic appearing anterior wedge deformity of T5, new since February 28, 2011. Lytic lesion in the anterior aspect of T5 vertebral body, likely new since February 28, 2011. Bony metastasis cannot be excluded. Pt is s/p bronchoscopy completed on 12/24/17 --suspicious left lower lobe lesion -bilateral hilar lymphadenopathy -friable mucosa in left upper lobe/left lower lobe -biopsies taken S pneumo, legionella antigens negative 12/25/17 Pt is found to be in respiratory distress this morning with O2 sat in the 80's. In the room the pt is tacycardic, using accessory mm to breathe and O2 sat is 88 % -pt has c/o pain with inhalation, chest pain and worsening SOB Plan: -Start pt on BiPAP stat, ekg stat ---> rechecked pt later this morning and she states the BiPAP is helping her breathe -azithromycin 500mg PO daily, rocephin 1000mg IVP -Robutusin 10mL q6hr scheduled -albuterol 3mL q4hr and q6hr prn SOB/wheeze -prednisone 60mg PO daily -regular diet -keep o2 >90% -cbc in AM -cmp in AM -check myoplasma IgM pending -blood cultures pending -diazepam 3mg PO TID prn anxiety -bronchoscopy biopsies pending -Acid fast culture, fungal culture, gram stain pending as per pulmonology - (2) Community acquired pneumonia Current Visit: Yes Status: Acute Assessment and Plan: Pt reports increasing SOB and cough. She has a 40+ year smoking hx. -denies fever/chills -denies weight loss -denies sputum production CXR showed Left-sided mediastinal shift, likely related to left-sided volume loss, new since November 18, 2017. Near complete opacification of the left hemithorax, likely related to obstructive atelectasis versus pneumonia, new since November 18, 2017. Multiple lung nodules in right hemithorax measuring up to 2 cm, may be related to metastatic disease or infection, new since April 26, 2011. Pt white count today is 11.4 -remains afebrile -HR 98 -meets SIRS critera with CXR showing pneumonia vs atelectasis as a possible source of infxn Plan: -azithromycin 500mg PO daily, rocephin 1g IV q24hr are discontinued -Start cefepime 2g IV, Levaquin 750mg, and vanc IV pharmacy to dose -duonebs q4hr and q6hr prn sob/wheeze -10mL Robutusin q6hr scheduled -PO prednisone 40mg daily -check myoplasma IgM and strep pneumo/legionella urine antigens -blood cultures pending (3) Lung cancer Current Visit: Yes Status: Suspected Assessment and Plan: CXR showed Left-sided mediastinal shift, likely related to left-sided volume loss, new since November 18, 2017. Near complete opacification of the left hemithorax, likely related to obstructive atelectasis versus pneumonia, new since November 18, 2017. Multiple lung nodules in right hemithorax measuring up to 2 cm, may be related to metastatic disease or infection, new since April 26, 2011. CT chest showed -no evidence of acute pulmonary emobli -7 x 4 cm masslike consolidation at the left hilar/parahilar region, may be related to neoplastic process, atelectasis or infection. -Multiple nodular consolidations in the right hemithorax, with the largest measuring up to 1.4 cm in the peripheral right lower lobe, may be related to infection/inflammation or metastatic disease, new since August 31, 2017. -Bilateral pleural effusions, large on the left and mild on the right, new since the prior study. -Tissue sampling with bronchoscopy may be beneficial. -Nodular prominence of the right adrenal gland measuring 1.1 x 1.8 cm, new since the prior study, suspicious for metastatic disease. -Mild chronic appearing anterior wedge deformity of T5, new since February 28, 2011. Lytic lesion in the anterior aspect of T5 vertebral body, likely new since February 28, 2011. Bony metastasis cannot be excluded. Elevated d-dimer 1391 Pt is s/p bronchoscopy completed on 12/24/17 --suspicious left lower lobe lesion -bilateral hilar lymphadenopathy -friable mucosa in left upper lobe/left lower lobe -biopsies taken Plan: -s/p bronchoscopy. AFB, fungal, gram stain and biospies are pending -stat pulmonology consult, DR Paige following -r/o metastatic disease, may benefit from PET scan (4) Sepsis Current Visit: Yes Status: Acute Assessment and Plan: Pt has WBC count of 11.4 -HR 99 -CXR showed possible atelectasis vs pneumonia on admission Plan: -on rocephin and azithromycin -continue to montior clinically -CBC and CMP in the morning -blood cultures pending DVT Prophylaxis: sq heparin - Time Spent with Patient Total time spent is greater than 50% in coordination of care (as documented) at patient's floor/unit and/or counseling patient: less than 15 minutes Plan of Care Discussed with: patient Internal Medicine: Result - Labs CBC & Chem 7: 12/25/17 07:50 12/25/17 09:32 Labs: Short CBC 12/25/17 Range/Units 07:50 WBC 11.4 H D (4.3-11.1) K/mcL Hgb 10.5 L (11.5-15.4) g/dL Hct 32.2 L (35.3-44.9) % Plt Count 336 (140-400) K/mcL Neutrophils # 9.0 H (1.6-8.9) K/mcL BMP 12/25/17 07:50 Sodium 140 Potassium 3.6 Chloride 107 Carbon Dioxide 28 BUN 8 Creatinine 0.43 L Glucose 95 Calcium 8.2 L - ABG Interpretation ABG results: PT/INR, D-dimer PT 13.7 Seconds (9.4-12.1) H 12/24/17 03:24 D-Dimer 1391 ng/mLFEU (0-500) H 12/23/17 09:03 Consult Discharge Plan - Plan Referrals: Shawn Mccoy MD [Primary Care Provider] - <Lilian Sandhu - Last Filed: 12/25/17 11:55> Hospitalist Progress Note - Encounter Date of Encounter: 12/25/17 - Exam Vitals: Temp Pulse Resp BP Pulse Ox 98.2 F 112 18 131/80 91 12/25/17 11:21 12/25/17 11:21 12/25/17 11:21 12/25/17 11:21 12/25/17 11:21 - Assessment and Plan (1) Community acquired pneumonia Current Visit: Yes Status: Acute (2) Acute exacerbation of chronic obstructive airways disease Current Visit: Yes Status: Acute (3) Lung cancer Current Visit: Yes Status: Suspected (4) Sepsis Current Visit: Yes Status: Acute - Time Spent with Patient Total time spent is greater than 50% in coordination of care (as documented) at patient's floor/unit and/or counseling patient: Internal Medicine: Result - Labs CBC & Chem 7: 12/25/17 07:50 12/25/17 09:32 Labs: Short CBC 12/25/17 Range/Units 07:50 WBC 11.4 H D (4.3-11.1) K/mcL Hgb 10.5 L (11.5-15.4) g/dL Hct 32.2 L (35.3-44.9) % Plt Count 336 (140-400) K/mcL Neutrophils # 9.0 H (1.6-8.9) K/mcL BMP 12/25/17 12/25/17 07:50 09:32 Sodium 140 Potassium 3.6 3.7 Chloride 107 Carbon Dioxide 28 BUN 8 Creatinine 0.43 L Glucose 95 Calcium 8.2 L Cardiac Enzymes 12/25/17 Range/Units 09:32 Troponin I < 0.03 (< 0.04) ng/mL - ABG Interpretation ABG results: PT/INR, D-dimer PT 13.7 Seconds (9.4-12.1) H 12/24/17 03:24 D-Dimer 1391 ng/mLFEU (0-500) H 12/23/17 09:03 - Attending Attestation I have seen and examined this patient independently. I have discussed with resident physician Dr. Cooney regarding the management plan. Agree with the documentation. <Delroy Cooney - Last Filed: 12/25/17 10:45> (2) Community acquired pneumonia Qualifiers: Laterality: left Lung location: unspecified part of lung Qualified Code(s): J18.9 - Pneumonia, unspecified organism (4) Sepsis Qualifiers: Sepsis type: sepsis due to unspecified organism Qualified Code(s): A41.9 - Sepsis, unspecified organism <Lilian Sandhu - Last Filed: 12/25/17 11:55> (1) Community acquired pneumonia Qualifiers: Laterality: left Lung location: unspecified part of lung Qualified Code(s): J18.9 - Pneumonia, unspecified organism (3) Lung cancer Qualifiers: Laterality: unspecified laterality Lung location: unspecified part of lung Qualified Code(s): C34.90 - Malignant neoplasm of unspecified part of unspecified bronchus or lung (4) Sepsis Qualifiers: Sepsis type: sepsis due to unspecified organism Qualified Code(s): A41.9 - Sepsis, unspecified organism
[2017-12-25] MEDS: Azithromycin 250 MG TABLET PO SCH (10:03)
[2017-12-25] MEDS: Budesonide/Formoterol 80/4.5 MDI IH SCH ×2 (10:55→22:07)
[2017-12-25] MEDS: Acetylcysteine 10% 2 ML INHSOL IH SCH ×3 (10:55→22:05)
[2017-12-25 15:11] LABS: Volume of Body Fluid 14 mL
[2017-12-25 15:13] LABS: Appearance of Body Fluid Hazy (Clear)
[2017-12-25] MEDS: Cefepime HCl 2,000 MG in Water for inj. (sterile) 20 ML 20 ML IVP SCH (17:52)
[2017-12-25] MEDS: traZODone 50 MG TABLET PO SCH (20:48)
[2017-12-26] MEDS: diazePAM 2 MG TABLET PO PRN ×2 (00:10→16:58)
[2017-12-26] MEDS: GuaiFENesin/Codeine Oral Soln 5 ML UDC PO SCH ×5 (01:14→23:31)
[2017-12-26] MEDS ORDERED: diazePAM 2 MG TABLET PO ONE (02:24)
[2017-12-26] MEDS: Ipratropium/Albuterol Neb 3 ML IH SCH ×4 (04:22→21:50)
[2017-12-26] MEDS: Acetylcysteine 10% 2 ML INHSOL IH SCH ×4 (04:22→21:50)
[2017-12-26] MEDS: Cefepime HCl 2,000 MG in Water for inj. (sterile) 20 ML 20 ML IVP SCH ×2 (06:08→18:48)
[2017-12-26] MEDS: *HR* Heparin 5,000 UNIT/ML VIAL SQ SCH ×2 (06:08→18:47)
[2017-12-26 06:19] LABS: Basophils % 0.1 %; Hematocrit 31.2 % (35.3-44.9); Hemoglobin 10.2 g/dL (11.5-15.4); Lymphocytes % 8.7 %; Mean Corpuscular HGB Conc 32.7 g/dL (31.6-35.5); Mean Corpuscular Volume 88.6 fL (83.0-100.0); Mean Platelet Volume 8.3 fL (9.4-12.4); Monocytes # 0.8 K/mcL (0.0-1.3); Monocytes % 7.7 %; Neutrophils # 9.1 K/mcL (1.6-8.9); Platelet Count 351 K/mcL (140-400); Red Blood Count 3.52 M/mcL (3.82-4.97); Red Cell Distribution Width 14.7 % (11.5-14.5); Segmented Neutrophils % 82.5 %
[2017-12-26 06:41] LABS: BUN/Creatinine Ratio 20 (6-26); Blood Urea Nitrogen 8 mg/dL (8-23); Calcium 8.2 mg/dL (8.6-10.3); Carbon Dioxide 24 mEq/L (23-29); Chloride 105 mEq/L (98-107); Glucose 101 mg/dL (70-105); Osmolality,Calculated 286 (280-300); Potassium 3.4 mEq/L (3.5-5.1); Sodium 139 mEq/L (136-145); eGFR For Non-African Americans > 60 (> 60)
--- NOTE | 2017-12-26 08:46 | Internal Med Progress Note ---
<ErosDelroy S - Last Filed: 12/26/17 09:51> Hospitalist Progress Note - Encounter Date of Encounter: 12/26/17 Time of Encounter: 08:43 - Subjective Interval History: Ms. Mae is a 62 year old female with PMH of COPD, anxiety, arthritis, kidney stones, depression, and osteoporosis. -last week has had URI symptoms and cough. Cough has been nonproductive and she states that she has been feeling very weak. -The pt states she has a hx of COPD and that she has been having increasing SOB from her baseline. -She doesn't take nebulizers as much as she should, according to her. -The pt is still requring 4L of O2 at the hospital but denies home oxygen use. In the ER the pt has a (-) troponin, lactic acid of 0.8. D dimer is 1391 CXR showed Left-sided mediastinal shift, likely related to left-sided volume loss, new since November 18, 2017. Near complete opacification of the left hemithorax, likely related to obstructive atelectasis versus pneumonia, new since November 18, 2017. Multiple lung nodules in right hemithorax measuring up to 2 cm, may be related to metastatic disease or infection, new since April 26, 2011. CT chest showed -no evidence of acute pulmonary emobli -7 x 4 cm masslike consolidation at the left hilar/parahilar region, may be related to neoplastic process, atelectasis or infection. -Multiple nodular consolidations in the right hemithorax, with the largest measuring up to 1.4 cm in the peripheral right lower lobe, may be related to infection/inflammation or metastatic disease, new since August 31, 2017. -Bilateral pleural effusions, large on the left and mild on the right, new since the prior study. -Tissue sampling with bronchoscopy may be beneficial. Stat pulmonolog consult placed -Dr Paige spoken to and pt is s/p bronchoscopy 9.2.18 Pt has complaints of difficulty breathing this 12/25/17. Her O2 sat was 88% when I went to examine the pt. Nurse states the pt has been having difficulty breathing this morning. Pt has c/o chest pain and SOB. She states taking a deep breathe is extremely difficult Overnight (12/26/17) -Pt continuously refused to wear BiPAP, O2 sat in the 70's. SpO2 turned up to 10L NC and satting at 85-88% -overnight resident, Dr. Obrien, was notidifed and pt was given Valium for anxiety -currently the pt is 95% on 8L -discussed changing code status with pt, pt continues to want to be a full code - Exam Vitals: Temp Pulse Resp BP Pulse Ox 98.2 F 111 19 116/71 95 12/26/17 04:00 12/26/17 06:59 12/26/17 06:59 12/26/17 06:59 12/26/17 06:59 Exam: general - nad , aox3 cardio - tacycardia, reproducible chest pain in epigastric area lungs - decreased breath sounds left >right, mild crackles; abd - NTND, no rebound or guarding skin - intact extremities - no edema - Assessment and Plan (1) Acute exacerbation of chronic obstructive airways disease Current Visit: Yes Status: Acute Assessment and Plan: Pt has hx of COPD, reports that the last week has been having increasing SOB from baseline. Has URI symptoms, including nonproductive cough. Denies weight loss, fevers/chills. In the ER the pt has a (-) troponin, lactic acid of 0.8. D dimer is 1391 CXR showed Left-sided mediastinal shift, likely related to left-sided volume loss, new since November 18, 2017. Near complete opacification of the left hemithorax, likely related to obstructive atelectasis versus pneumonia, new since November 18, 2017. Multiple lung nodules in right hemithorax measuring up to 2 cm, may be related to metastatic disease or infection, new since April 26, 2011. CT chest showed -no evidence of acute pulmonary emobli -7 x 4 cm masslike consolidation at the left hilar/parahilar region, may be related to neoplastic process, atelectasis or infection. -Multiple nodular consolidations in the right hemithorax, with the largest measuring up to 1.4 cm in the peripheral right lower lobe, may be related to infection/inflammation or metastatic disease, new since August 31, 2017. -Bilateral pleural effusions, large on the left and mild on the right, new since the prior study. -Tissue sampling with bronchoscopy may be beneficial. -Nodular prominence of the right adrenal gland measuring 1.1 x 1.8 cm, new since the prior study, suspicious for metastatic disease. -Mild chronic appearing anterior wedge deformity of T5, new since February 28, 2011. Lytic lesion in the anterior aspect of T5 vertebral body, likely new since February 28, 2011. Bony metastasis cannot be excluded. Pt is s/p bronchoscopy completed on 12/24/17 --suspicious left lower lobe lesion -bilateral hilar lymphadenopathy -friable mucosa in left upper lobe/left lower lobe -biopsies taken S pneumo, legionella antigens negative 12/25/17 Pt is found to be in respiratory distress this morning with O2 sat in the 80's. In the room the pt is tacycardic, using accessory mm to breathe and O2 sat is 88 % -pt has c/o pain with inhalation, chest pain and worsening SOB 12/26/17 Overnight -Pt continuously refused to wear BiPAP, O2 sat in the 70's. SpO2 turned up to 10L NC and satting at 85-88% -overnight resident, Dr. Obrien, was notidifed and pt was given Valium for anxiety Plan: -BiPAP if pt is compliant, if respiratory status deteriorates consider intubation -azithromycin 500mg PO daily, rocephin 1000mg IVP -Robutusin 10mL q6hr scheduled -albuterol 3mL q4hr and q6hr prn SOB/wheeze -prednisone 60mg PO daily -regular diet -keep o2 >90% -cbc in AM -cmp in AM -check myoplasma IgM pending -blood cultures pending -diazepam 3mg PO TID prn anxiety -bronchoscopy biopsies pending -Acid fast culture, fungal culture, gram stain pending as per pulmonology (2) Community acquired pneumonia Current Visit: Yes Status: Acute Assessment and Plan: Pt reports increasing SOB and cough. She has a 40+ year smoking hx. -denies fever/chills -denies weight loss -denies sputum production CXR showed Left-sided mediastinal shift, likely related to left-sided volume loss, new since November 18, 2017. Near complete opacification of the left hemithorax, likely related to obstructive atelectasis versus pneumonia, new since November 18, 2017. Multiple lung nodules in right hemithorax measuring up to 2 cm, may be related to metastatic disease or infection, new since April 26, 2011. Pt white count today is 11.0 -remains afebrile -HR 111 Plan: -azithromycin 500mg PO daily, rocephin 1g IV q24hr are discontinued -Start cefepime 2g IV, Levaquin 750mg, and vanc IV pharmacy to dose -duonebs q4hr and q6hr prn sob/wheeze -10mL Robutusin q6hr scheduled -PO prednisone 40mg daily -check myoplasma IgM and strep pneumo/legionella urine antigens -blood cultures pending (3) Lung cancer Current Visit: Yes Status: Suspected Assessment and Plan: CXR showed Left-sided mediastinal shift, likely related to left-sided volume loss, new since November 18, 2017. Near complete opacification of the left hemithorax, likely related to obstructive atelectasis versus pneumonia, new since November 18, 2017. Multiple lung nodules in right hemithorax measuring up to 2 cm, may be related to metastatic disease or infection, new since April 26, 2011. CT chest showed -no evidence of acute pulmonary emobli -7 x 4 cm masslike consolidation at the left hilar/parahilar region, may be related to neoplastic process, atelectasis or infection. -Multiple nodular consolidations in the right hemithorax, with the largest measuring up to 1.4 cm in the peripheral right lower lobe, may be related to infection/inflammation or metastatic disease, new since August 31, 2017. -Bilateral pleural effusions, large on the left and mild on the right, new since the prior study. -Tissue sampling with bronchoscopy may be beneficial. -Nodular prominence of the right adrenal gland measuring 1.1 x 1.8 cm, new since the prior study, suspicious for metastatic disease. -Mild chronic appearing anterior wedge deformity of T5, new since February 28, 2011. Lytic lesion in the anterior aspect of T5 vertebral body, likely new since February 28, 2011. Bony metastasis cannot be excluded. Elevated d-dimer 1391 Pt is s/p bronchoscopy completed on 12/24/17 --suspicious left lower lobe lesion -bilateral hilar lymphadenopathy -friable mucosa in left upper lobe/left lower lobe -biopsies taken Plan: -s/p bronchoscopy. AFB, fungal, gram stain and biospies are pending -stat pulmonology consult, DR Paige following -r/o metastatic disease, may benefit from PET scan -consulted heme onc (..) DVT Prophylaxis: sq heparin - Time Spent with Patient Total time spent is greater than 50% in coordination of care (as documented) at patient's floor/unit and/or counseling patient: less than 15 minutes Plan of Care Discussed with: patient Internal Medicine: Result - Labs CBC & Chem 7: 12/26/17 06:03 12/26/17 06:03 Labs: Short CBC 12/26/17 Range/Units 06:03 WBC 11.0 (4.3-11.1) K/mcL Hgb 10.2 L (11.5-15.4) g/dL Hct 31.2 L (35.3-44.9) % Plt Count 351 (140-400) K/mcL Neutrophils # 9.1 H (1.6-8.9) K/mcL BMP 12/25/17 12/26/17 09:32 06:03 Sodium 139 Potassium 3.7 3.4 L Chloride 105 Carbon Dioxide 24 BUN 8 Creatinine 0.40 L Glucose 101 Calcium 8.2 L Cardiac Enzymes 12/25/17 Range/Units 09:32 Troponin I < 0.03 (< 0.04) ng/mL - ABG Interpretation ABG results: PT/INR, D-dimer PT 13.7 Seconds (9.4-12.1) H 12/24/17 03:24 D-Dimer 1391 ng/mLFEU (0-500) H 12/23/17 09:03 Consult Discharge Plan - Plan Referrals: Shawn Mccoy MD [Primary Care Provider] - <Brian Fung - Last Filed: 12/26/17 14:31> Hospitalist Progress Note - Encounter Date of Encounter: 12/26/17 - Exam Vitals: Temp Pulse Resp BP Pulse Ox 98.2 F 126 24 157/83 86 12/26/17 04:00 12/26/17 11:01 12/26/17 11:01 12/26/17 11:01 12/26/17 11:01 - Assessment and Plan (1) Community acquired pneumonia Current Visit: Yes Status: Acute (2) Acute exacerbation of chronic obstructive airways disease Current Visit: Yes Status: Acute (3) Lung cancer Current Visit: Yes Status: Suspected - Time Spent with Patient Total time spent is greater than 50% in coordination of care (as documented) at patient's floor/unit and/or counseling patient: Internal Medicine: Result - Labs CBC & Chem 7: 12/26/17 06:03 12/26/17 06:03 Labs: Short CBC 12/26/17 Range/Units 06:03 WBC 11.0 (4.3-11.1) K/mcL Hgb 10.2 L (11.5-15.4) g/dL Hct 31.2 L (35.3-44.9) % Plt Count 351 (140-400) K/mcL Neutrophils # 9.1 H (1.6-8.9) K/mcL BMP 12/26/17 06:03 Sodium 139 Potassium 3.4 L Chloride 105 Carbon Dioxide 24 BUN 8 Creatinine 0.40 L Glucose 101 Calcium 8.2 L - ABG Interpretation ABG results: PT/INR, D-dimer PT 13.7 Seconds (9.4-12.1) H 12/24/17 03:24 D-Dimer 1391 ng/mLFEU (0-500) H 12/23/17 09:03 - Attending Attestation I examined this patient and my medical decision-making was reviewed with the Resident Physician Dr. Cooney. I agree with the documented findings, disposition and treatment plan as described except to the extent set forth below. Ms. Mae is a 62 year old female with PMH of COPD, not on home O2 dependent, anxiety, arthritis, kidney stones, depression, and osteoporosis pt admitted here for acute pneumonia and COPD exacerbation. pt is till on 10 lit NC O2. denied any CP. Still has severe SOB and MORALES. Gen: moderate resp distress Chest: Diminished BS b/l, moderare to severe wheezing, ronchi+ a/p 1. Acute hypoxic resp failure 2. Acute COPD exacerbation 3. Acute pneumonia cont IV steroids Duoneb and broad spec abx s/p bronch-- Path pending Pulm on board <Delroy Cooney S - Last Filed: 12/26/17 09:51> (2) Community acquired pneumonia Qualifiers: Laterality: left Lung location: unspecified part of lung Qualified Code(s): J18.9 - Pneumonia, unspecified organism <Brian Fung - Last Filed: 12/26/17 14:31> (1) Community acquired pneumonia Qualifiers: Laterality: left Lung location: unspecified part of lung Qualified Code(s): J18.9 - Pneumonia, unspecified organism (3) Lung cancer Qualifiers: Laterality: unspecified laterality Lung location: unspecified part of lung Qualified Code(s): C34.90 - Malignant neoplasm of unspecified part of unspecified bronchus or lung
[2017-12-26] MEDS: Nicotine 21 MG PATCH.TD24 TD SCH (09:26)
[2017-12-26] MEDS: levoFLOXacin 750 MG TABLET PO SCH (09:27)
[2017-12-26] MEDS: Venlafaxine XR (24 HR) 150 MG CAP.ER.24H PO SCH (09:27)
[2017-12-26] MEDS: predniSONE 20 MG TABLET PO SCH (09:27)
[2017-12-26] MEDS: Aspirin Enteric Coated 81 MG Tablet PO SCH (09:27)
--- NOTE | 2017-12-26 10:31 | Pulmonology Progress Note ---
<Brittney Ferguosn M - Last Filed: 12/26/17 11:35> Date of Encounter: 12/26/17 Assessment and Plan (1) Lesion of left lung Current Visit: Yes Status: Acute (2) Hilar adenopathy Current Visit: Yes Status: Acute (3) Acute exacerbation of chronic obstructive airways disease Current Visit: Yes Status: Acute Objective PUL Vital signs: Last Vital Signs Temp 98.2 F 12/26/17 04:00 Pulse 126 12/26/17 11:01 Resp 24 12/26/17 11:01 BP 157/83 12/26/17 11:01 Pulse Ox 86 12/26/17 11:01 Results - Laboratory Findings CBC and BMP: 12/26/17 06:03 12/26/17 06:03 PT/INR, D-dimer PT 13.7 Seconds (9.4-12.1) H 12/24/17 03:24 D-Dimer 1391 ng/mLFEU (0-500) H 12/23/17 09:03 Abnormal lab findings: Abnormal lab results RBC 3.52 M/mcL (3.82-4.97) L 12/26/17 06:03 Hgb 10.2 g/dL (11.5-15.4) L 12/26/17 06:03 Hct 31.2 % (35.3-44.9) L 12/26/17 06:03 RDW 14.7 % (11.5-14.5) H 12/26/17 06:03 MPV 8.3 fL (9.4-12.4) L 12/26/17 06:03 Neutrophils # 9.1 K/mcL (1.6-8.9) H 12/26/17 06:03 PT 13.7 Seconds (9.4-12.1) H 12/24/17 03:24 D-Dimer 1391 ng/mLFEU (0-500) H 12/23/17 09:03 Potassium 3.4 mEq/L (3.5-5.1) L 12/26/17 06:03 Creatinine 0.40 mg/dL (0.60-1.20) L 12/26/17 06:03 Calcium 8.2 mg/dL (8.6-10.3) L 12/26/17 06:03 Total Bilirubin 0.2 mg/dL (0.3-1.0) L 12/24/17 03:24 AST 11 Units/L (13-39) L 12/24/17 03:24 Alkaline Phosphatase 116 Units/L (34-104) H 12/24/17 03:24 Serum Total Protein 5.4 g/dL (6.4-8.9) L 12/24/17 03:24 Albumin 2.8 g/dL (3.5-5.7) L 12/24/17 03:24 Fluid Appearance Hazy (Clear) A 12/24/17 09:26 - Clinical Findings Intake & Output: Intake & Output 12/25/17 12/26/17 12/26/17 23:59 07:59 15:59 Intake Total 390 / 390 0 / 0 240 / 240 Output Total 1000 / 1000 325 / 325 600 / 600 Balance -610 / -610 -325 / -325 -360 / -360 Weight 47.9 kg Consult Discharge Plan - Plan Referrals: Shawn Mccoy MD [Primary Care Provider] - - Attending Attestation I examined this patient and my medical decision-making was reviewed with the Resident Physician. I agree with the documented findings, disposition and treatment plan as described except to the extent set forth below. Patient seen and examined. Labs, radiology, chart personally reviewed. Agree with resident's history and physical, assessment, plan with following comments: CUSTOMER CARE ASSOCIATE: Patient follows commands, Pulmonary: Acceptable oxygenation and ventilation. Patient stated she is feeling better. Status post bronchoscopy and pathology still pending. Followed up with pathology and results will not be back today most likely will have some information tomorrow. Continue bronchodilators and treatment for COPD exacerbation for now. <Mynor Lundberg - Last Filed: 12/26/17 15:14> Date of Encounter: 12/26/17 Time of Encounter: 09:45 Assessment and Plan (1) Lesion of left lung Current Visit: Yes Status: Acute s/p bronchosopy with BAL and endobronchial biopsies on 12/24 Spoke with pathology this morning, results should be available tomorrow (2) Hilar adenopathy Current Visit: Yes Status: Acute CT revealed hilar lymphadenopathy with L masslike consolidation Concerning for malignancy with lymph node involvement as above await pathology (3) Acute exacerbation of chronic obstructive airways disease Current Visit: Yes Status: Acute Continue symbicort and duonebs Continue empiric abx coverage with Cefepime, Levaquin, and Vanc Await culture results Continue 40mg po prednisone Continue to encourage BiPAP use at night. Subjective Principal diagnosis: COPD exacerbation Interval history: Ms. Mae is a 62F with PMH of COPD, arthritis, and osteoporosis who presented to the ED on 12/23 with 2 weeks duration of increased non-productive cough, weakness, and dyspnea. CXR revealed L mediastinal shift with L sided opacification. CT chest revealed a 7x4cm masslike consolidation on the left bronchus with partial collapse of the left lung, and hilar adenopathy. Underwent bronchoscopy with BAL and endobronchial biopsies on 12/24. No acute events overnight. Pt stated she is feeling a little better with improved SOB. No change in cough or sputum production. Denies any fever, chills , chest pain, vomiting, numbness, tingling, or headache. States she did experience a short episode of nausea this morning prior to breakfast. Objective PUL Vital signs: Last Vital Signs Temp 98.2 F 12/26/17 04:00 Pulse 111 12/26/17 06:59 Resp 19 12/26/17 06:59 BP 116/71 12/26/17 06:59 Pulse Ox 95 12/26/17 06:59 Eyes: nonicteric ENT: oropharynx moist Neck: supple, no lymphadenopathy, no JVD Effort: normal Auscultation: left: diminished breath sounds (left lower>upper ), rales (left upper ) Percussion: bilateral: not dull Tactile fremitus: bilateral: normal Cardiovascular: regular rate and rhythm Gastrointestinal: soft, non-tender, non-distended Integumentary: normal Extremities: no cyanosis, no edema, no clubbing, pink and warm Musculoskeletal: no deformities Gait: normal posture normal mental status, non-focal exam mood appropriate, affect normal Results - Laboratory Findings CBC and BMP: 12/26/17 06:03 12/26/17 06:03 PT/INR, D-dimer PT 13.7 Seconds (9.4-12.1) H 12/24/17 03:24 D-Dimer 1391 ng/mLFEU (0-500) H 12/23/17 09:03 Abnormal lab findings: Abnormal lab results RBC 3.52 M/mcL (3.82-4.97) L 12/26/17 06:03 Hgb 10.2 g/dL (11.5-15.4) L 12/26/17 06:03 Hct 31.2 % (35.3-44.9) L 12/26/17 06:03 RDW 14.7 % (11.5-14.5) H 12/26/17 06:03 MPV 8.3 fL (9.4-12.4) L 12/26/17 06:03 Neutrophils # 9.1 K/mcL (1.6-8.9) H 12/26/17 06:03 PT 13.7 Seconds (9.4-12.1) H 12/24/17 03:24 D-Dimer 1391 ng/mLFEU (0-500) H 12/23/17 09:03 Potassium 3.4 mEq/L (3.5-5.1) L 12/26/17 06:03 Creatinine 0.40 mg/dL (0.60-1.20) L 12/26/17 06:03 Calcium 8.2 mg/dL (8.6-10.3) L 12/26/17 06:03 Total Bilirubin 0.2 mg/dL (0.3-1.0) L 12/24/17 03:24 AST 11 Units/L (13-39) L 12/24/17 03:24 Alkaline Phosphatase 116 Units/L (34-104) H 12/24/17 03:24 Serum Total Protein 5.4 g/dL (6.4-8.9) L 12/24/17 03:24 Albumin 2.8 g/dL (3.5-5.7) L 12/24/17 03:24 Fluid Appearance Hazy (Clear) A 12/24/17 09:26 - Diagnostic Findings Chest x-ray: report reviewed, image reviewed CT scan - chest: report reviewed, image reviewed - Clinical Findings Intake & Output: Intake & Output 12/25/17 12/26/17 12/26/17 23:59 07:59 15:59 Intake Total 390 / 390 0 / 0 240 / 240 Output Total 1000 / 1000 325 / 325 Balance -610 / -610 -325 / -325 240 / 240 Weight 47.9 kg
[2017-12-26] MEDS: Budesonide/Formoterol 80/4.5 MDI IH SCH (10:38)
--- NOTE | 2017-12-26 14:31 | Oncology Inp Consult Note ---
<Angie Peralta - Last Filed: 12/26/17 18:21> Date of Encounter: 12/26/17 Time of Encounter: 14:31 Assessment and Plan (1) Lesion of left lung Status: Acute Assessment and plan: 12/23/2017 CTA of the chest indicates no evidence of acute pulmonary emboli. She did have obstruction of the left mainstem bronchus with partial collapse of left upper lower lobes. A 7 x 4 cm masslike consolidation in the left hilar parahilar region. Multiple nodular consolidations in the right hemothorax with the largest being 1.4 cm in the peripheral right lower lobe. Bilateral pleural effusions. Nodular prominence of the right adrenal gland. Lytic lesion in the anterior aspect of T5 12/24/2017 bronchoscopy biopsies pending. Will order CT head r/o metastatic disease. Currently on Nasal O2 10 LPM - desaturates with minimal activity. COntinue current pulmonary toilet As out patient will need PET CT. - Data of Consult Patient: new to practice Consult date: 12/26/17 Requesting Physician: Brina Fung MD Primary Care Provider: Shawn Mccoy - Consult Narrative Reason for consult: left hilar mass History of present illness: Ms. Mae is a 62 year old female was recently admitted through the emergency department with a past medical history of COPD, anxiety, arthritis, kidney stones, depression, and osteoporosis. Dhe is seen by pain management regarding spine stimulator. The patient reports that for the past few months she has been having increasing shortness of breath. On the day that time she presented to the emergency department she stated she just could not get her breath. Although she has COPD she denied that she had been using any type of nebulizers or inhalers. She denies weight loss, fevers, chills or night sweats. She reports having occasional pain in the sternal area. She does report having cough but states she is not able to cough up any type of mucus. Patient does state that she has constipation takes Correctol every 3 days. She states she had a colonoscopy about 4 years ago was instructed to have a repeat in one year however she did not have that test. She states that she has pain quite often in the upper back between her shoulder blades and this is been ongoing for several months. In the emergency department she had a chest x-ray that showed left sided mediastinal shift likely related to left sided volume loss this was new since October 2017. There was also a near complete opacification of the left hemothorax , likely related to obstructive atelectasis versus pneumonia this also was new since 11/18/2017. Multiple lung nodules in the right hemithorax measuring up to 2 cm may be related to metastatic disease or infection this was new since April 2011. 12/23/2017 she had a CTA of the chest there was no evidence of pulmonary emboli. She did however have left-sided volume loss with shift of the mediastinum. There were multiple mild leak prominent mediastinal lymph nodes that were nonspecific. There was a right hilar lymph node that measured 1.7 x 2.7 cm. There is obstruction of the left mainstem bronchus and partial collapse of the left upper and lower lobes. There is masslike consolidation in the left hilar/perihilar region measuring 7 x 4 cm. There also bilateral pulmonary effusions moderate to large on the left and mild on the right these were new since her prior study. There were also multiple nodular consolidations in the right hemothorax related to infection/inflammation or metastatic disease. There was also 1.4 cm lung nodule in the peripheral right lower lobe new since 08/31/2017. Nodular prominence of the right adrenal gland measuring 1.1 x 1.8 cm new since prior exam suspicious for metastatic disease. There was also mild chronic appearing anterior wedge deformity of T5 that was new since February 2011. Lytic lesion in the anterior aspect of T5 vertebral body. Bone metastasis cannot be excluded. There is also septal thickening likely related to mild congestive heart failure. On 12/24/2017 she had a bronchoscopy by Dr. Ferguson indicated friable mucosa in the left upper and left lower lobes. Copious amounts of mucopurulent secretions. Biopsies were taken and are pending. She is a smoker states she has smoked for 40+ years however she stopped 2 days prior to coming to the hospital. She is currently on Duoneb, prednisone, and Symbicort. With these medication she states she is feeling a little bit better but remains short of breath. Desaturates with minimal activity. She is also on vancomycin, Maxipenium and Levaquin. Past Med Surg Social Fam HX - Past Medical History Medical history: arthritis, COPD, kidney stones, osteoporosis, other (Chronic smoker) Additional medical history: current right kidney stones- 12/2017 Psychiatric history: anxiety, depression - Past Surgical History Additional surgical history: back surgery- nerve stimulator placed per Dr. Urbano. Colonoscopy approximately 2013 - Social History Smoking Status: Current every day smoker Smokeless Tobacco Status: No Alcohol use: none Drug use: none - Family History Father Hx Family Cardiac Disorders: Yes ([place],) Sister Hx Family Cardiac Disorders: Yes ([place]) Hx Family Cancer: Yes (lung ca) Hx Family Neurologic Disorders: Yes (2 CVAs) Medications and Allergies Albuterol Sulfate [Ventolin Hfa] 2 puff IH Q4H PRN 12/23/17 [History] Amitriptyline HCl [Amitriptyline HCl] 150 mg PO HS 12/23/17 [History] Aspirin [Lo-Dose Aspirin EC] 81 mg PO DAILY 12/23/17 [History] Biotin 1 mg PO DAILY 12/23/17 [History] Budesonide/Formoterol 80/4.5 [Symbicort 80/4.5] 2 puff IH BID 12/23/17 [History ] Meloxicam [Meloxicam] 7.5 mg PO DAILY 12/23/17 [History] Multivitamin [One Daily Essential] 1 tab PO DAILY 12/23/17 [History] Multivits Min/Iron/FA/Herb#186 [Hair, Skin & Nails Caplet] 1 tab PO DAILY [History] Omeprazole [PriLOSEC] 20 mg PO DAILY 12/23/17 [History] Prazosin [Minipress] 1 mg PO HS 12/23/17 [History] Tizanidine HCl 2 mg PO Q8H PRN 12/23/17 [History] Trazodone HCl 100 mg PO HS 12/23/17 [History] Turmeric Root Extract [Turmeric] 500 mg PO DAILY 12/23/17 [History] Venlafaxine HCl [Venlafaxine HCl ER] 150 mg PO DAILY 12/23/17 [History] Vitamin B Complex [B Complex] 1 tab PO DAILY 12/23/17 [History] diazePAM [Valium] 3 mg PO TID PRN 12/23/17 [History] 3 Allergy/AdvReac Type Severity Reaction Status Date / Time No Known Allergies Allergy Verified 12/23/17 13:19 All systems: reviewed and no additional remarkable complaints except as stated Constitutional: Present: fatigue, weakness Eyes: Present: floaters. Absent: blurry vision, change in vision Cardiovascular: Present: chest pain (sternal), dyspnea, dyspnea on exertion, rapid heart rate. Absent: edema, irregular heart rhythm, radiating jaw, neck or arm pain, leg edema, lightheadedness, palpitations, pedal edema, syncope Respiratory: Present: cough, dyspnea, dyspnea on exertion, chest congestion, pain with cough. Absent: hemoptysis Gastrointestinal: Present: constipation (Takes laxative every 3 days-states she had a colonoscopy about 4 years ago was to have one again in one year that she did not complete.). Absent: abdominal pain, change in bowel habits, dyspepsia, nausea Genitourinary: Present: other (She has flank abdominal pain that time she is trying to pass kidney stones) Musculoskeletal: Present: back pain (Midthoracic) Integumentary: Present: as per HPI Neurological: Present: weakness (Generalized). Absent: dizziness, headache(s), lack of coordination Psychiatric: Present: anxiety, depression (She has increased anxiety secondary to being claustrophobic) Endocrine: Present: as per HPI Hematologic/Lymphatic: Absent: easy bleeding, easy bruising, lymphadenopathy Oncology - Exam - Constitutional Vitals: Temp Pulse Resp BP Pulse Ox 98.2 F 126 24 157/83 86 12/26/17 04:00 12/26/17 11:01 12/26/17 11:01 12/26/17 11:01 12/26/17 11:01 General appearance: cooperative, mild distress - Head Head exam: Present: normocephalic - Eye Eye exam: Present: normal appearance - ENT ENT exam: Present: mucous membranes moist - Neck Neck exam: Present: normal inspection - Respiratory Respiratory exam: Present: decreased breath sounds (Throughout lung dean and most pronounced in left lower lobe) - Cardiovascular Cardiovascular exam: Present: RRR, tachycardia - GI/Abdominal GI/Abdominal exam: Present: normal bowel sounds, soft - Extremities Exam Extremities exam: Present: normal capillary refill, normal inspection - Back Exam Back exam: Present: tenderness (Midthoracic) - Neurological Exam Neurological exam: Present: alert, oriented X3 - Psychiatric Psychiatric exam: Present: anxious (She reports anxiety is secondary to claustrophobia), depressed Oncology - Results Labs: 3 12/26/17 12/26/17 12/25/17 06:03 06:03 09:32 WBC 11.0 RBC 3.52 L Hgb 10.2 L Hct 31.2 L MCV 88.6 MCH 29.0 MCHC 32.7 RDW 14.7 H Plt Count 351 MPV 8.3 L Immature Gran % 1.0 Seg Neutrophils % 82.5 Lymphocytes % 8.7 Monocytes % 7.7 Eosinophils % 0.0 Basophils % 0.1 Neutrophils # 9.1 H Lymphocytes # 1.0 Monocytes # 0.8 Eosinophils # 0.0 Basophils # 0.0 PT INR Sodium 139 Potassium 3.4 L 3.7 Chloride 105 Carbon Dioxide 24 BUN 8 Creatinine 0.40 L Est GFR ( Amer) > 60 Est GFR (Non-Af Amer) > 60 BUN/Creatinine Ratio 20 Glucose 101 Calculated Osmolality 286 Calcium 8.2 L Phosphorus Magnesium Total Bilirubin AST ALT Alkaline Phosphatase Troponin I Serum Total Protein Albumin Globulin Albumin/Globulin Ratio Fluid Source Fluid Volume Fluid Appearance Fluid RBC Fld Tot Nucleated Cell Fluid Seg Neutrophil % Fld Band Neutrophil % Fluid Lymphocytes % Fluid Monocytes % Fluid Eosinophils % Fluid Basophils % Fluid Other Cells % 3 12/25/17 12/25/17 12/25/17 09:32 07:50 07:50 WBC 11.4 H D RBC 3.58 L Hgb 10.5 L Hct 32.2 L MCV 89.9 MCH 29.3 MCHC 32.6 RDW 14.7 H Plt Count 336 MPV 8.3 L Immature Gran % 0.7 Seg Neutrophils % 78.5 Lymphocytes % 11.7 Monocytes % 8.9 Eosinophils % 0.1 Basophils % 0.1 Neutrophils # 9.0 H Lymphocytes # 1.3 Monocytes # 1.0 Eosinophils # 0.0 Basophils # 0.0 PT INR Sodium 140 Potassium 3.6 Chloride 107 Carbon Dioxide 28 BUN 8 Creatinine 0.43 L Est GFR ( Amer) > 60 Est GFR (Non-Af Amer) > 60 BUN/Creatinine Ratio 19 Glucose 95 Calculated Osmolality 288 Calcium 8.2 L Phosphorus Magnesium Total Bilirubin AST ALT Alkaline Phosphatase Troponin I < 0.03 Serum Total Protein Albumin Globulin Albumin/Globulin Ratio Fluid Source Fluid Volume Fluid Appearance Fluid RBC Fld Tot Nucleated Cell Fluid Seg Neutrophil % Fld Band Neutrophil % Fluid Lymphocytes % Fluid Monocytes % Fluid Eosinophils % Fluid Basophils % Fluid Other Cells % 3 09/02/18 09/02/18 09/02/18 09:26 03:24 03:24 WBC RBC Hgb Hct MCV MCH MCHC RDW Plt Count MPV Immature Gran % Seg Neutrophils % Lymphocytes % Monocytes % Eosinophils % Basophils % Neutrophils # Lymphocytes # Monocytes # Eosinophils # Basophils # PT 13.7 H INR 1.2 Sodium 141 Potassium 4.0 D Chloride 109 H Carbon Dioxide 23 BUN 8 Creatinine 0.37 L Est GFR ( Amer) > 60 Est GFR (Non-Af Amer) > 60 BUN/Creatinine Ratio 22 Glucose 125 H Calculated Osmolality 292 Calcium 8.4 L Phosphorus 2.7 Magnesium 2.1 Total Bilirubin 0.2 L AST 11 L ALT 11 Alkaline Phosphatase 116 H Troponin I Serum Total Protein 5.4 L Albumin 2.8 L Globulin 2.6 Albumin/Globulin Ratio 1.1 Fluid Source left lower lobe BAL Fluid Volume 14 Fluid Appearance Hazy A Fluid RBC 0.007 Fld Tot Nucleated Cell 366 Fluid Seg Neutrophil % 87.0 Fld Band Neutrophil % Test Not Performed Fluid Lymphocytes % 12.0 Fluid Monocytes % 1.0 Fluid Eosinophils % Test Not Performed Fluid Basophils % Test Not Performed Fluid Other Cells % Test Not Performed 3 12/24/17 03:24 WBC 6.6 RBC 3.31 L Hgb 9.5 L D Hct 29.1 L MCV 87.9 MCH 28.7 MCHC 32.6 RDW 14.4 Plt Count 281 MPV 8.6 L Immature Gran % 0.6 Seg Neutrophils % 81.4 Lymphocytes % 11.3 Monocytes % 6.5 Eosinophils % 0.0 Basophils % 0.2 Neutrophils # 5.4 Lymphocytes # 0.8 Monocytes # 0.4 Eosinophils # 0.0 Basophils # 0.0 PT INR Sodium Potassium Chloride Carbon Dioxide BUN Creatinine Est GFR ( Amer) Est GFR (Non-Af Amer) BUN/Creatinine Ratio Glucose Calculated Osmolality Calcium Phosphorus Magnesium Total Bilirubin AST ALT Alkaline Phosphatase Troponin I Serum Total Protein Albumin Globulin Albumin/Globulin Ratio Fluid Source Fluid Volume Fluid Appearance Fluid RBC Fld Tot Nucleated Cell Fluid Seg Neutrophil % Fld Band Neutrophil % Fluid Lymphocytes % Fluid Monocytes % Fluid Eosinophils % Fluid Basophils % Fluid Other Cells % Consult Discharge Plan - Plan Referrals: Shawn Mccoy MD [Primary Care Provider] - <Konrad Hernandez - Last Filed: 12/26/17 22:20> Date of Encounter: 12/26/17 - Data of Consult Requesting Physician: Brian Fung MD Primary Care Provider: Shawn Mccoy - Consult Narrative History of present illness: Ms. Mae is a 62 year old female Oncology - Exam - Constitutional Vitals: Temp Pulse Resp BP Pulse Ox 98.1 F 108 23 116/87 91 12/26/17 20:00 12/26/17 20:00 12/26/17 21:51 12/26/17 20:00 12/26/17 21:51 Oncology - Results Labs: 3 12/26/17 12/26/17 12/25/17 06:03 06:03 09:32 WBC 11.0 RBC 3.52 L Hgb 10.2 L Hct 31.2 L MCV 88.6 MCH 29.0 MCHC 32.7 RDW 14.7 H Plt Count 351 MPV 8.3 L Immature Gran % 1.0 Seg Neutrophils % 82.5 Lymphocytes % 8.7 Monocytes % 7.7 Eosinophils % 0.0 Basophils % 0.1 Neutrophils # 9.1 H Lymphocytes # 1.0 Monocytes # 0.8 Eosinophils # 0.0 Basophils # 0.0 PT INR Sodium 139 Potassium 3.4 L 3.7 Chloride 105 Carbon Dioxide 24 BUN 8 Creatinine 0.40 L Est GFR ( Amer) > 60 Est GFR (Non-Af Amer) > 60 BUN/Creatinine Ratio 20 Glucose 101 Calculated Osmolality 286 Calcium 8.2 L Phosphorus Magnesium Total Bilirubin AST ALT Alkaline Phosphatase Troponin I Serum Total Protein Albumin Globulin Albumin/Globulin Ratio Fluid Source Fluid Volume Fluid Appearance Fluid RBC Fld Tot Nucleated Cell Fluid Seg Neutrophil % Fld Band Neutrophil % Fluid Lymphocytes % Fluid Monocytes % Fluid Eosinophils % Fluid Basophils % Fluid Other Cells % Mycoplasma pneumon IgG Mycoplasma pneumon IgM 3 12/25/17 12/25/17 12/25/17 09:32 07:50 07:50 WBC 11.4 H D RBC 3.58 L Hgb 10.5 L Hct 32.2 L MCV 89.9 MCH 29.3 MCHC 32.6 RDW 14.7 H Plt Count 336 MPV 8.3 L Immature Gran % 0.7 Seg Neutrophils % 78.5 Lymphocytes % 11.7 Monocytes % 8.9 Eosinophils % 0.1 Basophils % 0.1 Neutrophils # 9.0 H Lymphocytes # 1.3 Monocytes # 1.0 Eosinophils # 0.0 Basophils # 0.0 PT INR Sodium 140 Potassium 3.6 Chloride 107 Carbon Dioxide 28 BUN 8 Creatinine 0.43 L Est GFR ( Amer) > 60 Est GFR (Non-Af Amer) > 60 BUN/Creatinine Ratio 19 Glucose 95 Calculated Osmolality 288 Calcium 8.2 L Phosphorus Magnesium Total Bilirubin AST ALT Alkaline Phosphatase Troponin I < 0.03 Serum Total Protein Albumin Globulin Albumin/Globulin Ratio Fluid Source Fluid Volume Fluid Appearance Fluid RBC Fld Tot Nucleated Cell Fluid Seg Neutrophil % Fld Band Neutrophil % Fluid Lymphocytes % Fluid Monocytes % Fluid Eosinophils % Fluid Basophils % Fluid Other Cells % Mycoplasma pneumon IgG Mycoplasma pneumon IgM 3 12/24/17 12/24/17 12/24/17 09:26 03:24 03:24 WBC RBC Hgb Hct MCV MCH MCHC RDW Plt Count MPV Immature Gran % Seg Neutrophils % Lymphocytes % Monocytes % Eosinophils % Basophils % Neutrophils # Lymphocytes # Monocytes # Eosinophils # Basophils # PT 13.7 H INR 1.2 Sodium 141 Potassium 4.0 D Chloride 109 H Carbon Dioxide 23 BUN 8 Creatinine 0.37 L Est GFR ( Amer) > 60 Est GFR (Non-Af Amer) > 60 BUN/Creatinine Ratio 22 Glucose 125 H Calculated Osmolality 292 Calcium 8.4 L Phosphorus 2.7 Magnesium 2.1 Total Bilirubin 0.2 L AST 11 L ALT 11 Alkaline Phosphatase 116 H Troponin I Serum Total Protein 5.4 L Albumin 2.8 L Globulin 2.6 Albumin/Globulin Ratio 1.1 Fluid Source left lower lobe BAL Fluid Volume 14 Fluid Appearance Hazy A Fluid RBC 0.007 Fld Tot Nucleated Cell 366 Fluid Seg Neutrophil % 87.0 Fld Band Neutrophil % Test Not Performed Fluid Lymphocytes % 12.0 Fluid Monocytes % 1.0 Fluid Eosinophils % Test Not Performed Fluid Basophils % Test Not Performed Fluid Other Cells % Test Not Performed Mycoplasma pneumon IgG Mycoplasma pneumon IgM 3 12/24/17 12/23/17 03:24 15:07 WBC 6.6 RBC 3.31 L Hgb 9.5 L D Hct 29.1 L MCV 87.9 MCH 28.7 MCHC 32.6 RDW 14.4 Plt Count 281 MPV 8.6 L Immature Gran % 0.6 Seg Neutrophils % 81.4 Lymphocytes % 11.3 Monocytes % 6.5 Eosinophils % 0.0 Basophils % 0.2 Neutrophils # 5.4 Lymphocytes # 0.8 Monocytes # 0.4 Eosinophils # 0.0 Basophils # 0.0 PT INR Sodium Potassium Chloride Carbon Dioxide BUN Creatinine Est GFR ( Amer) Est GFR (Non-Af Amer) BUN/Creatinine Ratio Glucose Calculated Osmolality Calcium Phosphorus Magnesium Total Bilirubin AST ALT Alkaline Phosphatase Troponin I Serum Total Protein Albumin Globulin Albumin/Globulin Ratio Fluid Source Fluid Volume Fluid Appearance Fluid RBC Fld Tot Nucleated Cell Fluid Seg Neutrophil % Fld Band Neutrophil % Fluid Lymphocytes % Fluid Monocytes % Fluid Eosinophils % Fluid Basophils % Fluid Other Cells % Mycoplasma pneumon IgG 0.15 H Mycoplasma pneumon IgM 0.21 - Attending Attestation I have seen and examined Ms. Mae and agree with Ms. Peralta's assessment. Ms. Mae has significant hypoxic respiratory failure requiring high flow oxygen. She has been found to have a left hilar mass with significant reduction in left lung volume, multiple right lung lesions concerning for metastases, bilateral effusions. Bronch and EBUS completed with biopsy. Significant mucous plugging identified. Presentation concerning for small cell, although NSCLC is a possibility. Pathology pending. CT head with contrast has been ordered. Her pulmonary status will need to improve to enable safe discharge. If she has SCLC, will initiate treatment inpatient. If NSCLC, will plan for XRT to left lung mass. Will schedule outpatient PET/CT as well to help better determine extent of disease systemically as well as in the left lung. Inpatient Charges Provider: Dr. César Hernandez Consult Charges: [id number]
[2017-12-26 15:55] LABS: Mycoplasma pneumoniae IgG 0.15 U/L (<=0.09)
[2017-12-26] MEDS ORDERED: Isovue-370 500 ML INFUS..BTL IV ONE (18:19)
[2017-12-26] MEDS: traZODone 50 MG TABLET PO SCH (20:25)
[2017-12-26] MEDS ORDERED: Budesonide/Formoterol 80/4.5 MDI IH SCH (22:00)
[2017-12-27] MEDS: Ipratropium/Albuterol Neb 3 ML IH SCH (03:18)
[2017-12-27] MEDS: Acetylcysteine 10% 2 ML INHSOL IH SCH (03:18)
[2017-12-27 03:43] LABS: Vancomycin,Trough 12 mcg/mL (5-10)
[2017-12-27] MEDS: Levalbuterol Neb 1.25 MG/3 ML IH SCH ×4 (04:02→22:59)
[2017-12-27] MEDS: Cefepime HCl 2,000 MG in Water for inj. (sterile) 20 ML 20 ML IVP SCH ×2 (05:54→17:43)
[2017-12-27] MEDS: *HR* Heparin 5,000 UNIT/ML VIAL SQ SCH ×2 (05:54→17:43)
[2017-12-27] MEDS: GuaiFENesin/Codeine Oral Soln 5 ML UDC PO SCH ×3 (05:56→17:42)
[2017-12-27 06:58] LABS: Alanine Aminotransferase 10 Units/L (7-52); Albumin 2.9 g/dL (3.5-5.7); Albumin/Globulin Ratio 1.2 (1.1-2.2); Alkaline Phosphatase 118 Units/L (34-104); Aspartate Amino Transferase 14 Units/L (13-39); BUN/Creatinine Ratio 23 (6-26); Bilirubin,Total 0.3 mg/dL (0.3-1.0); Blood Urea Nitrogen 10 mg/dL (8-23); Calcium 8.4 mg/dL (8.6-10.3); Carbon Dioxide 23 mEq/L (23-29); Chloride 104 mEq/L (98-107); Globulin 2.5 g/dL (2.4-3.5); Glucose 85 mg/dL (70-105); Osmolality,Calculated 282 (280-300); Potassium 3.4 mEq/L (3.5-5.1); Sodium 137 mEq/L (136-145); Total Protein 5.4 g/dL (6.4-8.9); eGFR For Non-African Americans > 60 (> 60)
--- NOTE | 2017-12-27 08:21 | Internal Med Progress Note ---
<Delroy Cooney S - Last Filed: 12/27/17 11:36> Hospitalist Progress Note - Encounter Date of Encounter: 12/27/17 Time of Encounter: 08:00 - Subjective Interval History: Ms. Mae is a 62 year old female with PMH of COPD, anxiety, arthritis, kidney stones, depression, and osteoporosis. -last week has had URI symptoms and cough. Cough has been nonproductive and she states that she has been feeling very weak. -The pt states she has a hx of COPD and that she has been having increasing SOB from her baseline. -She doesn't take nebulizers as much as she should, according to her. -The pt is still requring 4L of O2 at the hospital but denies home oxygen use. In the ER the pt has a (-) troponin, lactic acid of 0.8. D dimer is 1391 CXR showed Left-sided mediastinal shift, likely related to left-sided volume loss, new since November 18, 2017. Near complete opacification of the left hemithorax, likely related to obstructive atelectasis versus pneumonia, new since November 18, 2017. Multiple lung nodules in right hemithorax measuring up to 2 cm, may be related to metastatic disease or infection, new since April 26, 2011. CT chest showed -no evidence of acute pulmonary emobli -7 x 4 cm masslike consolidation at the left hilar/parahilar region, may be related to neoplastic process, atelectasis or infection. -Multiple nodular consolidations in the right hemithorax, with the largest measuring up to 1.4 cm in the peripheral right lower lobe, may be related to infection/inflammation or metastatic disease, new since August 31, 2017. -Bilateral pleural effusions, large on the left and mild on the right, new since the prior study. -Tissue sampling with bronchoscopy may be beneficial. Stat pulmonolog consult placed -Dr Paige spoken to and pt is s/p bronchoscopy 9.2.18 Pt has complaints of difficulty breathing this 12/25/17. Her O2 sat was 88% when I went to examine the pt. Nurse states the pt has been having difficulty breathing this morning. Pt has c/o chest pain and SOB. She states taking a deep breathe is extremely difficult Overnight (12/26/17) -Pt continuously refused to wear BiPAP, O2 sat in the 70's. SpO2 turned up to 10L NC and satting at 85-88% -overnight resident, Dr. Obrien, was notidifed and pt was given Valium for anxiety -currently the pt is 95% on 8L -discussed changing code status with pt, pt continues to want to be a full code Overnight (12/27/17) -pt remains tacycardic 100-118 bpm overnight, refusing to wear BiPAP -this morning when I saw pt, she stated she is having trouble breathing but feels better than yesterday. Pt denies chest pain, N/V/D, abd pain - Exam Vitals: Temp Pulse Resp BP Pulse Ox 98.1 F 118 16 114/69 90 12/27/17 07:37 12/27/17 07:37 12/27/17 07:37 12/27/17 07:37 12/27/17 07:37 Exam: general - nad , aox3 cardio - tacycardia, reproducible chest pain in epigastric area lungs - decreased breath sounds left >right, mild crackles; abd - NTND, no rebound or guarding skin - intact extremities - no edema - Assessment and Plan (1) Acute exacerbation of chronic obstructive airways disease Current Visit: Yes Status: Acute Assessment and Plan: Pt has hx of COPD, reports that the last week has been having increasing SOB from baseline. Has URI symptoms, including nonproductive cough. Denies weight loss, fevers/chills. In the ER the pt has a (-) troponin, lactic acid of 0.8. D dimer is 1391 CXR showed Left-sided mediastinal shift, likely related to left-sided volume loss, new since November 18, 2017. Near complete opacification of the left hemithorax, likely related to obstructive atelectasis versus pneumonia, new since November 18, 2017. Multiple lung nodules in right hemithorax measuring up to 2 cm, may be related to metastatic disease or infection, new since April 26, 2011. CT chest showed -no evidence of acute pulmonary emobli -7 x 4 cm masslike consolidation at the left hilar/parahilar region, may be related to neoplastic process, atelectasis or infection. -Multiple nodular consolidations in the right hemithorax, with the largest measuring up to 1.4 cm in the peripheral right lower lobe, may be related to infection/inflammation or metastatic disease, new since August 31, 2017. -Bilateral pleural effusions, large on the left and mild on the right, new since the prior study. -Tissue sampling with bronchoscopy may be beneficial. -Nodular prominence of the right adrenal gland measuring 1.1 x 1.8 cm, new since the prior study, suspicious for metastatic disease. -Mild chronic appearing anterior wedge deformity of T5, new since February 28, 2011. Lytic lesion in the anterior aspect of T5 vertebral body, likely new since February 28, 2011. Bony metastasis cannot be excluded. Pt is s/p bronchoscopy completed on 12/24/17 --suspicious left lower lobe lesion -bilateral hilar lymphadenopathy -friable mucosa in left upper lobe/left lower lobe -biopsies taken S pneumo, legionella antigens negative 12/25/17 Pt is found to be in respiratory distress this morning with O2 sat in the 80's. In the room the pt is tacycardic, using accessory mm to breathe and O2 sat is 88 % -pt has c/o pain with inhalation, chest pain and worsening SOB 12/26/17 Overnight -Pt continuously refused to wear BiPAP, O2 sat in the 70's. SpO2 turned up to 10L NC and satting at 85-88% -overnight resident, Dr. Obrien, was notidifed and pt was given Valium for anxiety Plan: -BiPAP if pt is compliant, if respiratory status deteriorates consider intubation -Pt is on Levaquin (day 1), Vancomycin (day 3) and cefepime (day 2) -Robutusin 10mL q6hr scheduled -albuterol 3mL q4hr and q6hr prn SOB/wheeze -prednisone 40mg PO daily -regular diet -keep o2 >90% -cbc in AM -cmp in AM -check myoplasma IgM pending -blood cultures pending -diazepam 3mg PO TID prn anxiety -bronchoscopy biopsies pending -Acid fast culture, fungal culture, gram stain pending as per pulmonology (2) Community acquired pneumonia Current Visit: Yes Status: Acute Assessment and Plan: Pt reports increasing SOB and cough. She has a 40+ year smoking hx. -denies fever/chills -denies weight loss -denies sputum production CXR showed Left-sided mediastinal shift, likely related to left-sided volume loss, new since November 18, 2017. Near complete opacification of the left hemithorax, likely related to obstructive atelectasis versus pneumonia, new since November 18, 2017. Multiple lung nodules in right hemithorax measuring up to 2 cm, may be related to metastatic disease or infection, new since April 26, 2011. Pt white count today is 11.0 -remains afebrile -HR 111 strep pneumo/legionella urine antigens negative Plan: -azithromycin 500mg PO daily, rocephin 1g IV q24hr are discontinued -Pt is on Levaquin (day 1), Vancomycin (day 3) and cefepime (day 2) -d/c duobebs, start Atrovent 0.5mg q4hr -d/c Mucomyst -10mL Robutusin q6hr scheduled -PO prednisone 40mg daily -check myoplasma IgM -blood cultures pending (3) Lung cancer Current Visit: Yes Status: Suspected Assessment and Plan: CXR showed Left-sided mediastinal shift, likely related to left-sided volume loss, new since November 18, 2017. Near complete opacification of the left hemithorax, likely related to obstructive atelectasis versus pneumonia, new since November 18, 2017. Multiple lung nodules in right hemithorax measuring up to 2 cm, may be related to metastatic disease or infection, new since April 26, 2011. CT chest showed -no evidence of acute pulmonary emobli -7 x 4 cm masslike consolidation at the left hilar/parahilar region, may be related to neoplastic process, atelectasis or infection. -Multiple nodular consolidations in the right hemithorax, with the largest measuring up to 1.4 cm in the peripheral right lower lobe, may be related to infection/inflammation or metastatic disease, new since August 31, 2017. -Bilateral pleural effusions, large on the left and mild on the right, new since the prior study. -Tissue sampling with bronchoscopy may be beneficial. -Nodular prominence of the right adrenal gland measuring 1.1 x 1.8 cm, new since the prior study, suspicious for metastatic disease. -Mild chronic appearing anterior wedge deformity of T5, new since February 28, 2011. Lytic lesion in the anterior aspect of T5 vertebral body, likely new since February 28, 2011. Bony metastasis cannot be excluded. Elevated d-dimer 1391 Pt is s/p bronchoscopy completed on 12/24/17 --suspicious left lower lobe lesion -bilateral hilar lymphadenopathy -friable mucosa in left upper lobe/left lower lobe -biopsies taken Plan: -s/p bronchoscopy. AFB, fungal, gram stain and biospies are pending -stat pulmonology consult, DR Paige following -r/o metastatic disease, may benefit from PET scan -consulted heme onc (9.4.18) ---> they are going to order CT head to rule out mets (4) Hypokalemia Current Visit: Yes Status: Acute Assessment and Plan: Potassium of 3.4 this morning -given 20mEq PO potassium chloride -monitor electrolytes DVT Prophylaxis: heparin sq - Time Spent with Patient Total time spent is greater than 50% in coordination of care (as documented) at patient's floor/unit and/or counseling patient: less than 15 minutes Plan of Care Discussed with: patient Internal Medicine: Result - Labs CBC & Chem 7: 12/26/17 06:03 12/27/17 02:45 Labs: BMP 12/27/17 02:45 Sodium 137 Potassium 3.4 L Chloride 104 Carbon Dioxide 23 BUN 10 Creatinine 0.44 L Glucose 85 Calcium 8.4 L Liver Function 12/27/17 Range/Units 02:45 Total Bilirubin 0.3 (0.3-1.0) mg/dL AST 14 (13-39) Units/L ALT 10 (7-52) Units/L Alkaline Phosphatase 118 H (34-104) Units/L Albumin 2.9 L (3.5-5.7) g/dL - ABG Interpretation ABG results: PT/INR, D-dimer PT 13.7 Seconds (9.4-12.1) H 12/24/17 03:24 D-Dimer 1391 ng/mLFEU (0-500) H 12/23/17 09:03 Consult Discharge Plan - Plan Referrals: Shawn Mccoy MD [Primary Care Provider] - <Brian Fung - Last Filed: 12/27/17 15:57> Hospitalist Progress Note - Encounter Date of Encounter: 12/27/17 - Exam Vitals: Temp Pulse Resp BP Pulse Ox 98.1 F 123 16 112/87 89 12/27/17 12:04 12/27/17 12:04 12/27/17 12:04 12/27/17 12:04 12/27/17 12:04 - Assessment and Plan (1) Community acquired pneumonia Current Visit: Yes Status: Acute (2) Acute exacerbation of chronic obstructive airways disease Current Visit: Yes Status: Acute (3) Lung cancer Current Visit: Yes Status: Suspected (4) Hypokalemia Current Visit: Yes Status: Acute - Time Spent with Patient Total time spent is greater than 50% in coordination of care (as documented) at patient's floor/unit and/or counseling patient: Internal Medicine: Result - Labs CBC & Chem 7: 12/26/17 06:03 12/27/17 02:45 Labs: BMP 12/27/17 02:45 Sodium 137 Potassium 3.4 L Chloride 104 Carbon Dioxide 23 BUN 10 Creatinine 0.44 L Glucose 85 Calcium 8.4 L Liver Function 12/27/17 Range/Units 02:45 Total Bilirubin 0.3 (0.3-1.0) mg/dL AST 14 (13-39) Units/L ALT 10 (7-52) Units/L Alkaline Phosphatase 118 H (34-104) Units/L Albumin 2.9 L (3.5-5.7) g/dL - ABG Interpretation ABG results: PT/INR, D-dimer PT 13.7 Seconds (9.4-12.1) H 12/24/17 03:24 D-Dimer 1391 ng/mLFEU (0-500) H 12/23/17 09:03 - Impressions Impressions Head CT 12/27/17 15:00 IMPRESSION: No acute intracranial abnormality. Bilateral basal ganglia calcifications of no clinical significance. D/ / Wolfgang Sullivan MD / Wolfgang Sullivan MD Interpreting Provider: Wolfgang Sullivan MD - Attending Attestation I examined this patient and my medical decision-making was reviewed with the Resident Physician Dr. Cooney. I agree with the documented findings, disposition and treatment plan as described except to the extent set forth below. Ms. Mae is a 62 year old female with PMH of COPD, not on home O2 dependent, anxiety, arthritis, kidney stones, depression, and osteoporosis pt admitted here for acute pneumonia and COPD exacerbation. pt is till on 10 lit NC O2. denied any CP. Still has severe SOB and MORALES. Gen: moderate resp distress..Able to finish full sentence with out pause Chest: Diminished BS b/l, severe wheezing, ronchi+ a/p 1. Acute hypoxic resp failure 2. Acute COPD exacerbation 3. Acute pneumonia 4. Left lung mass still in severe resp distress and on 10 lit O2.. Severe wheezing noticed started on high dose IV steroids Duoneb and broad spec abx d/c Vancomycin.. s/p bronch-- Path pending Pulm and Heme Onc on board <Delroy Cooney S - Last Filed: 12/27/17 11:36> (2) Community acquired pneumonia Qualifiers: Laterality: left Lung location: unspecified part of lung Qualified Code(s): J18.9 - Pneumonia, unspecified organism <Brian Fung - Last Filed: 12/27/17 15:57> (1) Community acquired pneumonia Qualifiers: Laterality: left Lung location: unspecified part of lung Qualified Code(s): J18.9 - Pneumonia, unspecified organism (3) Lung cancer Qualifiers: Laterality: unspecified laterality Lung location: unspecified part of lung Qualified Code(s): C34.90 - Malignant neoplasm of unspecified part of unspecified bronchus or lung
--- NOTE | 2017-12-27 08:27 | Pulmonology Progress Note ---
<ToñoTaylorMynor A - Last Filed: 12/27/17 17:03> Date of Encounter: 12/27/17 Time of Encounter: 10:45 Assessment and Plan (1) Lesion of left lung Current Visit: Yes Status: Acute s/p bronchosopy with BAL and endobronchial biopsies on 12/24 Await pathology results (2) Hilar adenopathy Current Visit: Yes Status: Acute CT revealed hilar lymphadenopathy with L masslike consolidation Concerning for malignancy with lymph node involvement as above await pathology (3) Acute exacerbation of chronic obstructive airways disease Current Visit: Yes Status: Acute Continue symbicort and duonebs Continue empiric abx coverage with Cefepime, Levaquin, and Vanc AFB and GMS negative from bronchoscopy Continue 40mg po prednisone Continue to encourage BiPAP use at night, although pt continues to refuse Subjective Principal diagnosis: COPD exacerbation Interval history: Ms. aMe is a 62F with PMH of COPD, arthritis, and osteoporosis who presented to the ED on 12/23 with 2 weeks duration of increased non-productive cough, weakness, and dyspnea. CXR revealed L mediastinal shift with L sided opacification. CT chest revealed a 7x4cm masslike consolidation on the left bronchus with partial collapse of the left lung, and hilar adenopathy. Underwent bronchoscopy with BAL and endobronchial biopsies on 12/24. No acute events overnight. No new or acute complaints. Denies any fever, chills , chest pain, nausea, vomiting, numbness, tingling, or headache. Objective PUL Vital signs: Last Vital Signs Temp 98.1 F 12/27/17 07:37 Pulse 118 12/27/17 07:37 Resp 16 12/27/17 07:37 BP 114/69 12/27/17 07:37 Pulse Ox 90 12/27/17 07:37 General appearance: no acute distress Eyes: nonicteric ENT: oropharynx moist Neck: supple, no lymphadenopathy, no JVD Effort: normal Auscultation: left: diminished breath sounds (left upper > lower ), rales (left upper ), right: clear Percussion: bilateral: not dull Tactile fremitus: bilateral: normal Cardiovascular: regular rate and rhythm Gastrointestinal: soft, non-tender, non-distended Integumentary: normal Extremities: no cyanosis, no edema, no clubbing, pink and warm Musculoskeletal: no deformities Gait: normal posture normal mental status, non-focal exam mood appropriate, affect normal Results - Laboratory Findings CBC and BMP: 12/26/17 06:03 12/27/17 02:45 PT/INR, D-dimer PT 13.7 Seconds (9.4-12.1) H 12/24/17 03:24 D-Dimer 1391 ng/mLFEU (0-500) H 12/23/17 09:03 Abnormal lab findings: Abnormal lab results RBC 3.52 M/mcL (3.82-4.97) L 12/26/17 06:03 Hgb 10.2 g/dL (11.5-15.4) L 12/26/17 06:03 Hct 31.2 % (35.3-44.9) L 12/26/17 06:03 RDW 14.7 % (11.5-14.5) H 12/26/17 06:03 MPV 8.3 fL (9.4-12.4) L 12/26/17 06:03 Neutrophils # 9.1 K/mcL (1.6-8.9) H 12/26/17 06:03 PT 13.7 Seconds (9.4-12.1) H 12/24/17 03:24 D-Dimer 1391 ng/mLFEU (0-500) H 12/23/17 09:03 Potassium 3.4 mEq/L (3.5-5.1) L 12/27/17 02:45 Creatinine 0.44 mg/dL (0.60-1.20) L 12/27/17 02:45 Calcium 8.4 mg/dL (8.6-10.3) L 12/27/17 02:45 Alkaline Phosphatase 118 Units/L (34-104) H 12/27/17 02:45 Serum Total Protein 5.4 g/dL (6.4-8.9) L 12/27/17 02:45 Albumin 2.9 g/dL (3.5-5.7) L 12/27/17 02:45 Fluid Appearance Hazy (Clear) A 12/24/17 09:26 Vancomycin Trough 12 mcg/mL (5-10) H 12/27/17 02:45 Mycoplasma pneumon IgG 0.15 U/L (<=0.09) H 12/23/17 15:07 - Microbiology Findings Microbiology Findings: Microbiology, Last 48 Hours 12/24/17 09:26 Acid Fast Stain - Final Left Lower Lobe Lung 12/24/17 09:26 Respiratory Culture - Preliminary Left Lower Lobe Lung - Clinical Findings Intake & Output: Intake & Output 12/26/17 12/27/17 12/27/17 23:59 07:59 15:59 Intake Total 80 / 80 130 / 130 Output Total 300 / 300 300 / 300 Balance -220 / -220 130 / 130 -300 / -300 Weight 47.6 kg Consult Discharge Plan - Plan Referrals: Shawn Mccoy MD [Primary Care Provider] - <Brittney Ferguson - Last Filed: 12/28/17 07:51> Date of Encounter: 12/28/17 Assessment and Plan (1) Lesion of left lung Current Visit: Yes Status: Acute (2) Hilar adenopathy Current Visit: Yes Status: Acute (3) Acute exacerbation of chronic obstructive airways disease Current Visit: Yes Status: Acute Objective PUL Vital signs: Last Vital Signs Temp 98.4 F 12/28/17 07:09 Pulse 130 12/28/17 07:09 Resp 19 12/28/17 07:33 BP 124/84 12/28/17 07:09 Pulse Ox 89 12/28/17 07:33 Results - Laboratory Findings CBC and BMP: 12/28/17 04:10 12/27/17 02:45 PT/INR, D-dimer PT 13.7 Seconds (9.4-12.1) H 12/24/17 03:24 D-Dimer 1391 ng/mLFEU (0-500) H 12/23/17 09:03 Abnormal lab findings: Abnormal lab results Hgb 11.1 g/dL (11.5-15.4) L 12/28/17 04:10 Hct 33.8 % (35.3-44.9) L 12/28/17 04:10 RDW 15.0 % (11.5-14.5) H 12/28/17 04:10 MPV 8.6 fL (9.4-12.4) L 12/28/17 04:10 Neutrophils # 9.7 K/mcL (1.6-8.9) H 12/28/17 04:10 Lymphocytes # 0.5 K/mcL (0.6-4.6) L 12/28/17 04:10 PT 13.7 Seconds (9.4-12.1) H 12/24/17 03:24 D-Dimer 1391 ng/mLFEU (0-500) H 12/23/17 09:03 Potassium 3.4 mEq/L (3.5-5.1) L 12/27/17 02:45 Creatinine 0.44 mg/dL (0.60-1.20) L 12/27/17 02:45 Calcium 8.4 mg/dL (8.6-10.3) L 12/27/17 02:45 Alkaline Phosphatase 118 Units/L (34-104) H 12/27/17 02:45 Serum Total Protein 5.4 g/dL (6.4-8.9) L 12/27/17 02:45 Albumin 2.9 g/dL (3.5-5.7) L 12/27/17 02:45 Fluid Appearance Hazy (Clear) A 12/24/17 09:26 Vancomycin Trough 12 mcg/mL (5-10) H 12/27/17 02:45 Mycoplasma pneumon IgG 0.15 U/L (<=0.09) H 12/23/17 15:07 - Microbiology Findings Microbiology Findings: Microbiology, Last 48 Hours 12/24/17 09:26 Respiratory Culture - Final Left Lower Lobe Lung 12/24/17 09:26 Acid Fast Stain - Final Left Lower Lobe Lung - Clinical Findings Intake & Output: Intake & Output 12/27/17 12/27/17 12/28/17 15:59 23:59 07:59 Intake Total 750 / 750 20 / 20 20 20 Output Total 300 / 300 0 / 0 500 / 500 Balance 450 / 450 / -480 / -480 Weight 48.5 kg - Attending Attestation This was added on 12/28/17, however the case was discussed with resident and pathologist and pt was seen on 12/27/17 I examined this patient and my medical decision-making was reviewed with the Resident Physician. I agree with the documented findings, disposition and treatment plan as described except to the extent set forth below. Patient seen and examined. Labs, radiology, chart personally reviewed. Agree with resident's history and physical, assessment, plan with following comments: B[employer] SPECIALIST: Patient follows commands, Pulmonary: Acceptable oxygenation and ventilation. Discussed with the pathology and still pending and I was told that biopsy has been sent to [facility] and this was discussed with the oncologist. At this time covering with antibiotics as well as bronchodilators is recommended and 28 for the biopsy results back. We will continue follow-up.
[2017-12-27] MEDS: Aspirin Enteric Coated 81 MG Tablet PO SCH (08:54)
[2017-12-27] MEDS: levoFLOXacin 750 MG TABLET PO SCH (08:54)
[2017-12-27] MEDS: predniSONE 20 MG TABLET PO SCH (08:55)
[2017-12-27] MEDS: Nicotine 21 MG PATCH.TD24 TD SCH (08:55)
[2017-12-27] MEDS: Venlafaxine XR (24 HR) 150 MG CAP.ER.24H PO SCH (08:55)
[2017-12-27] MEDS: diazePAM 2 MG TABLET PO PRN (10:56)
[2017-12-27] MEDS: Ipratropium Neb 0.5 MG NEBULIZER IH SCH ×5 (11:05→23:13)
[2017-12-27] MEDS: MethylPREDNISolone 40 MG/ML VIAL IVP SCH ×2 (15:47→18:30)
[2017-12-27] MEDS: traZODone 50 MG TABLET PO SCH (20:03)
--- NOTE | 2017-12-27 21:14 | Electrocardiograph Report ---
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
--- NOTE | 2017-12-27 23:09 | Electrocardiograph Report ---
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
[2017-12-28] MEDS: MethylPREDNISolone 40 MG/ML VIAL IVP SCH ×4 (00:34→17:17)
[2017-12-28] MEDS: GuaiFENesin/Codeine Oral Soln 5 ML UDC PO SCH ×4 (00:34→17:16)
[2017-12-28] MEDS: Levalbuterol Neb 1.25 MG/3 ML IH SCH ×4 (03:50→20:17)
[2017-12-28] MEDS: Ipratropium Neb 0.5 MG NEBULIZER IH SCH ×6 (03:50→23:44)
[2017-12-28 05:19] LABS: Basophils % 0.3 %; Hematocrit 33.8 % (35.3-44.9); Hemoglobin 11.1 g/dL (11.5-15.4); Immature Granulocytes % 1.6 % (0-4); Lymphocytes # 0.5 K/mcL (0.6-4.6); Lymphocytes % 4.8 %; Mean Corpuscular HGB Conc 32.8 g/dL (31.6-35.5); Mean Corpuscular Hemoglobin 28.9 pg (28.0-33.3); Mean Platelet Volume 8.6 fL (9.4-12.4); Monocytes # 0.4 K/mcL (0.0-1.3); Monocytes % 3.7 %; Neutrophils # 9.7 K/mcL (1.6-8.9); Platelet Count 390 K/mcL (140-400); Red Blood Count 3.84 M/mcL (3.82-4.97); Segmented Neutrophils % 89.6 %
[2017-12-28] MEDS: Cefepime HCl 2,000 MG in Water for inj. (sterile) 20 ML 20 ML IVP SCH ×2 (05:54→17:16)
[2017-12-28] MEDS: *HR* Heparin 5,000 UNIT/ML VIAL SQ SCH ×2 (05:55→17:27)
[2017-12-28 08:00] LABS: Alanine Aminotransferase 10 Units/L (7-52); Albumin 3.1 g/dL (3.5-5.7); Albumin/Globulin Ratio 1.1 (1.1-2.2); Alkaline Phosphatase 124 Units/L (34-104); Aspartate Amino Transferase 12 Units/L (13-39); BUN/Creatinine Ratio 33 (6-26); Bilirubin,Total 0.4 mg/dL (0.3-1.0); Blood Urea Nitrogen 15 mg/dL (8-23); Calcium 8.8 mg/dL (8.6-10.3); Carbon Dioxide 20 mEq/L (23-29); Chloride 104 mEq/L (98-107); Globulin 2.8 g/dL (2.4-3.5); Glucose 114 mg/dL (70-105); Osmolality,Calculated 288 (280-300); Potassium 3.8 mEq/L (3.5-5.1); Sodium 138 mEq/L (136-145); Total Protein 5.9 g/dL (6.4-8.9); eGFR For Non-African Americans > 60 (> 60)
[2017-12-28] MEDS ORDERED: *HR* LORazepam 2 MG/ML VIAL IVP PRN (08:28)
--- NOTE | 2017-12-28 08:33 | Internal Med Progress Note ---
<CooneyDelroy S - Last Filed: 12/28/17 11:12> Hospitalist Progress Note - Encounter Date of Encounter: 12/28/17 Time of Encounter: 08:30 - Subjective Interval History: Ms. Mae is a 62 year old female with PMH of COPD, anxiety, arthritis, kidney stones, depression, and osteoporosis. -last week has had URI symptoms and cough. Cough has been nonproductive and she states that she has been feeling very weak. -The pt states she has a hx of COPD and that she has been having increasing SOB from her baseline. -She doesn't take nebulizers as much as she should, according to her. -The pt is still requring 4L of O2 at the hospital but denies home oxygen use. In the ER the pt has a (-) troponin, lactic acid of 0.8. D dimer is 1391 CXR showed Left-sided mediastinal shift, likely related to left-sided volume loss, new since November 18, 2017. Near complete opacification of the left hemithorax, likely related to obstructive atelectasis versus pneumonia, new since November 18, 2017. Multiple lung nodules in right hemithorax measuring up to 2 cm, may be related to metastatic disease or infection, new since April 26, 2011. CT chest showed -no evidence of acute pulmonary emobli -7 x 4 cm masslike consolidation at the left hilar/parahilar region, may be related to neoplastic process, atelectasis or infection. -Multiple nodular consolidations in the right hemithorax, with the largest measuring up to 1.4 cm in the peripheral right lower lobe, may be related to infection/inflammation or metastatic disease, new since August 31, 2017. -Bilateral pleural effusions, large on the left and mild on the right, new since the prior study. -Tissue sampling with bronchoscopy may be beneficial. Stat pulmonolog consult placed -Dr Paige spoken to and pt is s/p bronchoscopy 9.2.18 Pt has complaints of difficulty breathing this 12/25/17. Her O2 sat was 88% when I went to examine the pt. Nurse states the pt has been having difficulty breathing this morning. Pt has c/o chest pain and SOB. She states taking a deep breathe is extremely difficult Overnight (12/26/17) -Pt continuously refused to wear BiPAP, O2 sat in the 70's. SpO2 turned up to 10L NC and satting at 85-88% -overnight resident, Dr. Obrien, was notidifed and pt was given Valium for anxiety -currently the pt is 95% on 8L -discussed changing code status with pt, pt continues to want to be a full code Overnight (12/27/17) -pt remains tacycardic 100-118 bpm overnight, refusing to wear BiPAP -this morning when I saw pt, she stated she is having trouble breathing but feels better than yesterday. Pt denies chest pain, N/V/D, abd pain 12/28/17 -Pt has no new complaints. She states that she is breathing ok, has no chest pain and no N/V/D. She is still anxious about pathology report -pt still refusing BiPAP at this time - Exam Vitals: Temp Pulse Resp BP Pulse Ox 98.4 F 130 19 124/84 89 12/28/17 07:09 12/28/17 07:09 12/28/17 07:33 12/28/17 07:09 12/28/17 07:33 Exam: general - nad , aox3 cardio - tacycardia , s1s2 cta lungs - decreased breath sounds left >right, mild crackles; abd - NTND, no rebound or guarding skin - intact extremities - no edema - Assessment and Plan (1) Acute exacerbation of chronic obstructive airways disease Current Visit: Yes Status: Acute Assessment and Plan: Pt has hx of COPD, reports that the last week has been having increasing SOB from baseline. Has URI symptoms, including nonproductive cough. Denies weight loss, fevers/chills. In the ER the pt has a (-) troponin, lactic acid of 0.8. D dimer is 1391 CXR showed Left-sided mediastinal shift, likely related to left-sided volume loss, new since November 18, 2017. Near complete opacification of the left hemithorax, likely related to obstructive atelectasis versus pneumonia, new since November 18, 2017. Multiple lung nodules in right hemithorax measuring up to 2 cm, may be related to metastatic disease or infection, new since April 26, 2011. CT chest showed -no evidence of acute pulmonary emobli -7 x 4 cm masslike consolidation at the left hilar/parahilar region, may be related to neoplastic process, atelectasis or infection. -Multiple nodular consolidations in the right hemithorax, with the largest measuring up to 1.4 cm in the peripheral right lower lobe, may be related to infection/inflammation or metastatic disease, new since August 31, 2017. -Bilateral pleural effusions, large on the left and mild on the right, new since the prior study. -Tissue sampling with bronchoscopy may be beneficial. -Nodular prominence of the right adrenal gland measuring 1.1 x 1.8 cm, new since the prior study, suspicious for metastatic disease. -Mild chronic appearing anterior wedge deformity of T5, new since February 28, 2011. Lytic lesion in the anterior aspect of T5 vertebral body, likely new since February 28, 2011. Bony metastasis cannot be excluded. Pt is s/p bronchoscopy completed on 12/24/17 --suspicious left lower lobe lesion -bilateral hilar lymphadenopathy -friable mucosa in left upper lobe/left lower lobe -biopsies taken S pneumo, legionella antigens negative Acid fast cx negative Gram stain negative 12/25/17 Pt is found to be in respiratory distress this morning with O2 sat in the 80's. In the room the pt is tacycardic, using accessory mm to breathe and O2 sat is 88 % -pt has c/o pain with inhalation, chest pain and worsening SOB 12/26/17 Overnight -Pt continuously refused to wear BiPAP, O2 sat in the 70's. SpO2 turned up to 10L NC and satting at 85-88% -overnight resident, Dr. Obrien, was notidifed and pt was given Valium for anxiety 12/28/17 -pt still refusing to wear BiPAP, O2 sat continues to be in the high 80's on 12L. Plan: -BiPAP if pt is compliant, if respiratory status deteriorates consider intubation -Pt is on Levaquin (day 2), and cefepime (day 3) -Vancomycin d/c on 12/27/17 -Robutusin 10mL q6hr scheduled -albuterol 3mL q4hr and q6hr prn SOB/wheeze -methylprednisone 40mg IVP q6hr -Ativan 1g q6hr IVP prn anxiety -regular diet -keep o2 >90% -cbc in AM -cmp in AM -check myoplasma IgM pending -blood cultures pending -diazepam 3mg PO TID prn anxiety -bronchoscopy biopsies pending -start cardizem 60mg PO q6hr, pt has remained tacycardic -consult pallilative (2) Community acquired pneumonia Current Visit: Yes Status: Acute Assessment and Plan: Pt reports increasing SOB and cough. She has a 40+ year smoking hx. -denies fever/chills -denies weight loss -denies sputum production CXR showed Left-sided mediastinal shift, likely related to left-sided volume loss, new since November 18, 2017. Near complete opacification of the left hemithorax, likely related to obstructive atelectasis versus pneumonia, new since November 18, 2017. Multiple lung nodules in right hemithorax measuring up to 2 cm, may be related to metastatic disease or infection, new since April 26, 2011. Pt white count today is 11.0 -remains afebrile -HR 111 strep pneumo/legionella urine antigens negative Plan: -azithromycin 500mg PO daily, rocephin 1g IV q24hr are discontinued -Pt is on Levaquin (day 2), and cefepime (day 3) -d/c Vanc 12/27/17 -d/c duobebs, start Atrovent 0.5mg q4hr -d/c Mucomyst -10mL Robutusin q6hr scheduled -methylprednisolone 40mg IVP q6hr -check myoplasma IgM -blood cultures pending (3) Lung cancer Current Visit: Yes Status: Suspected Assessment and Plan: CXR showed Left-sided mediastinal shift, likely related to left-sided volume loss, new since November 18, 2017. Near complete opacification of the left hemithorax, likely related to obstructive atelectasis versus pneumonia, new since November 18, 2017. Multiple lung nodules in right hemithorax measuring up to 2 cm, may be related to metastatic disease or infection, new since April 26, 2011. CT chest showed -no evidence of acute pulmonary emobli -7 x 4 cm masslike consolidation at the left hilar/parahilar region, may be related to neoplastic process, atelectasis or infection. -Multiple nodular consolidations in the right hemithorax, with the largest measuring up to 1.4 cm in the peripheral right lower lobe, may be related to infection/inflammation or metastatic disease, new since August 31, 2017. -Bilateral pleural effusions, large on the left and mild on the right, new since the prior study. -Tissue sampling with bronchoscopy may be beneficial. -Nodular prominence of the right adrenal gland measuring 1.1 x 1.8 cm, new since the prior study, suspicious for metastatic disease. -Mild chronic appearing anterior wedge deformity of T5, new since February 28, 2011. Lytic lesion in the anterior aspect of T5 vertebral body, likely new since February 28, 2011. Bony metastasis cannot be excluded. Elevated d-dimer 1391 Pt is s/p bronchoscopy completed on 12/24/17 --suspicious left lower lobe lesion -bilateral hilar lymphadenopathy -friable mucosa in left upper lobe/left lower lobe -biopsies taken CT negative for metastasis Plan: -s/p bronchoscopy. AFB, fungal, gram stain and biospies are pending -stat pulmonology consult, DR Paige following -r/o metastatic disease, may benefit from PET scan -consulted heme onc (12.26.) (4) Hypokalemia Current Visit: Yes Status: Resolved Assessment and Plan: Potassium of 3.4 this (12/27/17) -given 20mEq PO potassium chloride -monitor electrolytes 12/28/17 - potassium 3.8 DVT Prophylaxis: heparin sq - Time Spent with Patient Total time spent is greater than 50% in coordination of care (as documented) at patient's floor/unit and/or counseling patient: less than 15 minutes Plan of Care Discussed with: patient Internal Medicine: Result - Labs CBC & Chem 7: 12/28/17 04:10 12/28/17 04:10 Labs: Short CBC 12/28/17 Range/Units 04:10 WBC 10.8 (4.3-11.1) K/mcL Hgb 11.1 L (11.5-15.4) g/dL Hct 33.8 L (35.3-44.9) % Plt Count 390 (140-400) K/mcL Neutrophils # 9.7 H (1.6-8.9) K/mcL BMP 12/28/17 04:10 Sodium 138 Potassium 3.8 Chloride 104 Carbon Dioxide 20 L BUN 15 Creatinine 0.46 L Glucose 114 H Calcium 8.8 Liver Function 12/28/17 Range/Units 04:10 Total Bilirubin 0.4 (0.3-1.0) mg/dL AST 12 L (13-39) Units/L ALT 10 (7-52) Units/L Alkaline Phosphatase 124 H (34-104) Units/L Albumin 3.1 L (3.5-5.7) g/dL - ABG Interpretation ABG results: PT/INR, D-dimer PT 13.7 Seconds (9.4-12.1) H 12/24/17 03:24 D-Dimer 1391 ng/mLFEU (0-500) H 12/23/17 09:03 - Impressions Impressions Head CT 12/27/17 15:00 IMPRESSION: No acute intracranial abnormality. Bilateral basal ganglia calcifications of no clinical significance. D/ / Wolfgang Sullivan MD / Wolfgang Sullivan MD Interpreting Provider: Wolfgang Sullivan MD Consult Discharge Plan - Plan Referrals: Shawn Mccoy MD [Primary Care Provider] - <Brian Fung - Last Filed: 12/28/17 17:12> Hospitalist Progress Note - Encounter Date of Encounter: 12/28/17 - Exam Vitals: Temp Pulse Resp BP Pulse Ox 98.1 F 108 18 118/70 90 12/28/17 11:02 12/28/17 16:15 12/28/17 11:15 12/28/17 16:15 12/28/17 16:15 - Assessment and Plan (1) Community acquired pneumonia Current Visit: Yes Status: Acute (2) Acute exacerbation of chronic obstructive airways disease Current Visit: Yes Status: Acute (3) Lung cancer Current Visit: Yes Status: Suspected (4) Hypokalemia Current Visit: Yes Status: Resolved - Time Spent with Patient Total time spent is greater than 50% in coordination of care (as documented) at patient's floor/unit and/or counseling patient: Internal Medicine: Result - Labs CBC & Chem 7: 12/28/17 04:10 12/28/17 04:10 Labs: Short CBC 12/28/17 Range/Units 04:10 WBC 10.8 (4.3-11.1) K/mcL Hgb 11.1 L (11.5-15.4) g/dL Hct 33.8 L (35.3-44.9) % Plt Count 390 (140-400) K/mcL Neutrophils # 9.7 H (1.6-8.9) K/mcL BMP 12/28/17 04:10 Sodium 138 Potassium 3.8 Chloride 104 Carbon Dioxide 20 L BUN 15 Creatinine 0.46 L Glucose 114 H Calcium 8.8 Liver Function 12/28/17 Range/Units 04:10 Total Bilirubin 0.4 (0.3-1.0) mg/dL AST 12 L (13-39) Units/L ALT 10 (7-52) Units/L Alkaline Phosphatase 124 H (34-104) Units/L Albumin 3.1 L (3.5-5.7) g/dL - ABG Interpretation ABG results: PT/INR, D-dimer PT 13.7 Seconds (9.4-12.1) H 12/24/17 03:24 D-Dimer 1391 ng/mLFEU (0-500) H 12/23/17 09:03 - Attending Attestation I examined this patient and my medical decision-making was reviewed with the Resident Physician Dr. Cooney. I agree with the documented findings, disposition and treatment plan as described except to the extent set forth below. Ms. Mae is a 62 year old female with PMH of COPD, not on home O2 dependent, anxiety, arthritis, kidney stones, depression, and osteoporosis pt admitted here for acute pneumonia and COPD exacerbation. pt is till on 10 lit NC O2. denied any CP. Still has severe SOB and MORALES. Gen: moderate resp distress..Able to finish full sentence with out pause Chest: Diminished BS b/l, severe wheezing, ronchi+ a/p 1. Acute hypoxic resp failure 2. Acute COPD exacerbation 3. Acute pneumonia 4. Left lung mass still in severe resp distress and on 10 lit O2.. Severe wheezing noticed Cont on high dose IV steroids Duoneb and broad spec abx s/p bronch-- Path pending Pulm and Heme Onc on board Will encourage to use BiPAP more frequently Ativan PRN 5. Sinus tachycardia d/c Duoneb Xopenox and Atrovent Neb Q6hr also started Cardizem 60mg PO Q6hr <Delroy Cooney S - Last Filed: 12/28/17 11:12> (2) Community acquired pneumonia Qualifiers: Laterality: left Lung location: unspecified part of lung Qualified Code(s): J18.9 - Pneumonia, unspecified organism <Brian Fung - Last Filed: 12/28/17 17:12> (1) Community acquired pneumonia Qualifiers: Laterality: left Lung location: unspecified part of lung Qualified Code(s): J18.9 - Pneumonia, unspecified organism (3) Lung cancer Qualifiers: Laterality: unspecified laterality Lung location: unspecified part of lung Qualified Code(s): C34.90 - Malignant neoplasm of unspecified part of unspecified bronchus or lung
[2017-12-28] MEDS: Aspirin Enteric Coated 81 MG Tablet PO SCH (08:54)
[2017-12-28] MEDS: Nicotine 21 MG PATCH.TD24 TD SCH (08:54)
[2017-12-28] MEDS: levoFLOXacin 750 MG TABLET PO SCH (08:54)
[2017-12-28] MEDS: Venlafaxine XR (24 HR) 150 MG CAP.ER.24H PO SCH (08:54)
[2017-12-28 10:05] LABS: Adenovirus Not Detected (Not Detect); Bordetella Pertussis Not Detected (Not Detect); Chlamydophila pneumoniae Not Detected (Not Detect); Coronavirus 229E Not Detected (Not Detect); Coronavirus HKU1 Not Detected (Not Detect); Coronavirus NL63 Not Detected (Not Detect); Coronavirus OC43 Not Detected (Not Detect); Human Metapneumovirus Not Detected (Not Detect); Human Rhinovirus/Enterovirus Not Detected (Not Detect); Influenza A Subtype 2009 H1 Not Detected (Not Detect); Influenza A Untypeable Not Detected (Not Detect); Influenza B Not Detected (Not Detect); Mycoplasma pneumoniae Not Detected (Not Detect); Parainfluenza Virus 1 Not Detected (Not Detect); Parainfluenza Virus 2 Not Detected (Not Detect); Parainfluenza Virus 3 Not Detected (Not Detect); Parainfluenza Virus 4 Not Detected (Not Detect); Respiratory Syncytial Virus Not Detected (Not Detect)
[2017-12-28] MEDS ORDERED: Aminoglycoside Consult 1 EACH MC ONE (10:11)
--- NOTE | 2017-12-28 10:20 | Pulmonology Progress Note ---
<Brittney Ferguson M - Last Filed: 12/28/17 15:15> Date of Encounter: 12/28/17 Assessment and Plan (1) Lesion of left lung Current Visit: Yes Status: Acute (2) Hilar adenopathy Current Visit: Yes Status: Acute (3) Acute exacerbation of chronic obstructive airways disease Current Visit: Yes Status: Acute Objective PUL Vital signs: Last Vital Signs Temp 98.1 F 12/28/17 11:02 Pulse 131 12/28/17 11:02 Resp 18 12/28/17 11:15 BP 124/91 12/28/17 11:02 Pulse Ox 88 12/28/17 11:15 Results - Laboratory Findings CBC and BMP: 12/28/17 04:10 12/28/17 04:10 PT/INR, D-dimer PT 13.7 Seconds (9.4-12.1) H 12/24/17 03:24 D-Dimer 1391 ng/mLFEU (0-500) H 12/23/17 09:03 Abnormal lab findings: Abnormal lab results Hgb 11.1 g/dL (11.5-15.4) L 12/28/17 04:10 Hct 33.8 % (35.3-44.9) L 12/28/17 04:10 RDW 15.0 % (11.5-14.5) H 12/28/17 04:10 MPV 8.6 fL (9.4-12.4) L 12/28/17 04:10 Neutrophils # 9.7 K/mcL (1.6-8.9) H 12/28/17 04:10 Lymphocytes # 0.5 K/mcL (0.6-4.6) L 12/28/17 04:10 PT 13.7 Seconds (9.4-12.1) H 12/24/17 03:24 D-Dimer 1391 ng/mLFEU (0-500) H 12/23/17 09:03 Carbon Dioxide 20 mEq/L (23-29) L 12/28/17 04:10 Creatinine 0.46 mg/dL (0.60-1.20) L 12/28/17 04:10 BUN/Creatinine Ratio 33 (6-26) H 12/28/17 04:10 Glucose 114 mg/dL (70-105) H 12/28/17 04:10 AST 12 Units/L (13-39) L 12/28/17 04:10 Alkaline Phosphatase 124 Units/L (34-104) H 12/28/17 04:10 Serum Total Protein 5.9 g/dL (6.4-8.9) L 12/28/17 04:10 Albumin 3.1 g/dL (3.5-5.7) L 12/28/17 04:10 Fluid Appearance Hazy (Clear) A 12/24/17 09:26 Vancomycin Trough 12 mcg/mL (5-10) H 12/27/17 02:45 Mycoplasma pneumon IgG 0.15 U/L (<=0.09) H 12/23/17 15:07 - Microbiology Findings Microbiology Findings: Microbiology, Last 48 Hours 12/24/17 09:26 Respiratory Culture - Final Left Lower Lobe Lung 12/24/17 09:26 Acid Fast Stain - Final Left Lower Lobe Lung - Clinical Findings Intake & Output: Intake & Output 12/27/17 12/28/17 12/28/17 23:59 07:59 15:59 Intake Total Output Total 0 / 0 500 / 500 Balance -480 / -480 Weight 48.5 kg Consult Discharge Plan - Plan Referrals: Shawn Mccoy MD [Primary Care Provider] - - Attending Attestation I examined this patient and my medical decision-making was reviewed with the Resident Physician. I agree with the documented findings, disposition and treatment plan as described except to the extent set forth below. Patient seen and examined. Labs, radiology, chart personally reviewed. Agree with resident's history and physical, assessment, plan with following comments: [employer]: Patient follows commands, Pulmonary: Patient biopsy still not final and I discussed with pathologist which is been sent out to [facility]. As of now continue treatment for pneumonia. <Mynor Lundberg - Last Filed: 12/28/17 16:08> Date of Encounter: 12/28/17 Time of Encounter: 10:20 Assessment and Plan (1) Acute exacerbation of chronic obstructive airways disease Current Visit: Yes Status: Acute Continue symbicort and duonebs Continue empiric abx coverage with Cefepime, Levaquin, and Vanc AFB and GMS negative from bronchoscopy Continue 40mg po prednisone Discussed the importance of BiPap given pt O2 sat at 89% via oxy mask and bilateral pleural effusions with pt. Pt verbalized understanding that not using BiPap could lead to worsening respiratory failure and potentially intubation. (2) Lesion of left lung Current Visit: Yes Status: Acute s/p bronchosopy with BAL and endobronchial biopsies on 12/24 Spoke with pathology department today. Biopsy samples are being sent to [facility] for consultation. No preliminary report given. Results expected some time next week. (3) Hilar adenopathy Current Visit: Yes Status: Acute CT revealed hilar lymphadenopathy with L masslike consolidation Concerning for malignancy with lymph node involvement as above await pathology Subjective Principal diagnosis: COPD exacerbation Interval history: Ms. Mae is a 62F with PMH of COPD, arthritis, and osteoporosis who presented to the ED on 12/23 with 2 weeks duration of increased non-productive cough, weakness, and dyspnea. CXR revealed L mediastinal shift with L sided opacification. CT chest revealed a 7x4cm masslike consolidation on the left bronchus with partial collapse of the left lung, and hilar adenopathy. Underwent bronchoscopy with BAL and endobronchial biopsies on 12/24. No acute events overnight. No new or acute complaints. Denies any fever, chills , chest pain, nausea, vomiting, numbness, tingling, or headache. Pt used BiPAP today for 20 minutes. Objective PUL Vital signs: Last Vital Signs Temp 98.4 F 12/28/17 07:09 Pulse 130 12/28/17 07:09 Resp 19 12/28/17 07:33 BP 124/84 12/28/17 07:09 Pulse Ox 89 12/28/17 07:33 General appearance: no acute distress, alert Eyes: nonicteric ENT: oropharynx moist Neck: supple, no JVD Effort: normal Auscultation: left: rales, bilateral: diminished breath sounds Percussion: bilateral: not dull Tactile fremitus: bilateral: normal Gastrointestinal: normoactive bowel sounds Integumentary: normal Extremities: no cyanosis, no edema, no clubbing, pink and warm Musculoskeletal: no deformities Gait: normal posture normal mental status, non-focal exam mood appropriate, affect normal Results - Laboratory Findings CBC and BMP: 12/28/17 04:10 12/28/17 04:10 PT/INR, D-dimer PT 13.7 Seconds (9.4-12.1) H 12/24/17 03:24 D-Dimer 1391 ng/mLFEU (0-500) H 12/23/17 09:03 Abnormal lab findings: Abnormal lab results Hgb 11.1 g/dL (11.5-15.4) L 12/28/17 04:10 Hct 33.8 % (35.3-44.9) L 12/28/17 04:10 RDW 15.0 % (11.5-14.5) H 12/28/17 04:10 MPV 8.6 fL (9.4-12.4) L 12/28/17 04:10 Neutrophils # 9.7 K/mcL (1.6-8.9) H 12/28/17 04:10 Lymphocytes # 0.5 K/mcL (0.6-4.6) L 12/28/17 04:10 PT 13.7 Seconds (9.4-12.1) H 12/24/17 03:24 D-Dimer 1391 ng/mLFEU (0-500) H 12/23/17 09:03 Carbon Dioxide 20 mEq/L (23-29) L 12/28/17 04:10 Creatinine 0.46 mg/dL (0.60-1.20) L 12/28/17 04:10 BUN/Creatinine Ratio 33 (6-26) H 12/28/17 04:10 Glucose 114 mg/dL (70-105) H 12/28/17 04:10 AST 12 Units/L (13-39) L 12/28/17 04:10 Alkaline Phosphatase 124 Units/L (34-104) H 12/28/17 04:10 Serum Total Protein 5.9 g/dL (6.4-8.9) L 12/28/17 04:10 Albumin 3.1 g/dL (3.5-5.7) L 12/28/17 04:10 Fluid Appearance Hazy (Clear) A 12/24/17 09:26 Vancomycin Trough 12 mcg/mL (5-10) H 12/27/17 02:45 Mycoplasma pneumon IgG 0.15 U/L (<=0.09) H 12/23/17 15:07 - Microbiology Findings Microbiology Findings: Microbiology, Last 48 Hours 12/24/17 09:26 Respiratory Culture - Final Left Lower Lobe Lung 12/24/17 09:26 Acid Fast Stain - Final Left Lower Lobe Lung - Clinical Findings Intake & Output: Intake & Output 12/27/17 12/28/17 12/28/17 23:59 07:59 15:59 Intake Total 20 Output Total 0 / 0 500 / 500 Balance -480 / -480 Weight 48.5 kg
--- NOTE | 2017-12-28 15:57 | Palliative - Consult Note ---
Date of Encounter: 12/28/17 Time of Encounter: 14:30 - Assessment and Plan (1) Goals of care, counseling/discussion Current Visit: Yes Status: Acute Assessment and plan: Discussed with pt and her current medical condition, ongoing work up, prognosis and treatment options. Expressed to pt that imaging are concerning for malignancy and explored the implications of such diagnosis. Pt has COPD, but was not on home oxygen. sShe was independent on ADLs, and driving around town about 2 times a week. Pt has a large family, 2 children and 4 grand children, all involved in her care. Patient wants her Kenji to be her POA. Form was completed. Discussed advanced care planning, including CPR and intubation. explained to patient that in case of respiratory failure, intubation would not be recommended as she will be unlikely to be extubated successfully. Also explained that because of her undelying pathology, CPR is not recommended as it would result in prolongation of suffering and of the dying process. Pt decided to be DNRCC arrest and DNI. order filled. Further GOC discussion pending pathology report. Palliative care will follow. (2) Acute exacerbation of chronic obstructive airways disease Current Visit: Yes Status: Acute Assessment and plan: Pulmonary following on Symbicort and duonebs on empiric abx coverage with Cefepime, Levaquin, and Vanc On 40mg po prednisone AFB and GMS negative from bronchoscopy Pt was on oxygen mask, SpO2 90%. Encouraged to use BiPAP, especially at night. (3) Lesion of left lung Current Visit: Yes Status: Acute Assessment and plan: CT revealed hilar lymphadenopathy with L masslike consolidation Concerning for malignancy with lymph node involvement s/p bronchosopy with BAL and endobronchial biopsies on 12/24 awaiting pathology Palliative-CN HPI - Data of Consult Consult date: 12/28/17 Requesting Physician: Brian Fung MD Primary Care Provider: Shawn Mccoy - Consult Narrative Reason for consult: GOC discussion History of present illness: Ms. Mae is a 62 year old female with PMH of COPD, arthritis, and osteoporosis who presented to the ED on 12/23 with 2 weeks duration of increased non-productive cough, weakness, and dyspnea. CXR revealed L mediastinal shift with L sided opacification. CT chest revealed a 7x4cm mass-like consolidation on the left bronchus with partial collapse of the left lung, and hilar adenopathy. Underwent bronchoscopy with BAL and endobronchial biopsies on 12/24. Pathology is in process, palliative care consulted for GOC discussion. Pt was seen and examined at the bedside, her Kenji was present. Pt was AAO x3, mask in place, speaking in full sentences. she complained f SOB, mostly on exertion, cough improving. denies fever, chills, chest pain, nausea, vomiting , change in bowel habits. CC: Brian Fung MD Past Med Surg Social Fam HX - Past Medical History Medical history: arthritis, COPD, kidney stones, osteoporosis, other (Chronic smoker) Additional medical history: current right kidney stones- 12/2017 Psychiatric history: anxiety, depression - Past Surgical History Additional surgical history: back surgery- nerve stimulator placed per Dr. Urbano. Colonoscopy approximately 2013 - Social History Smoking Status: Current every day smoker Smokeless Tobacco Status: No Alcohol use: none Drug use: none - Family History Father Hx Family Cardiac Disorders: Yes ([place],) Sister Hx Family Cardiac Disorders: Yes ([place]) Hx Family Cancer: Yes (lung ca) Hx Family Neurologic Disorders: Yes (2 CVAs) Medications and Allergies Albuterol Sulfate [Ventolin Hfa] 2 puff IH Q4H PRN 12/23/17 [History] Amitriptyline HCl [Amitriptyline HCl] 150 mg PO HS 12/23/17 [History] Aspirin [Lo-Dose Aspirin EC] 81 mg PO DAILY 12/23/17 [History] Biotin 1 mg PO DAILY 12/23/17 [History] Budesonide/Formoterol 80/4.5 [Symbicort 80/4.5] 2 puff IH BID 12/23/17 [History ] Meloxicam [Meloxicam] 7.5 mg PO DAILY 12/23/17 [History] Multivitamin [One Daily Essential] 1 tab PO DAILY 12/23/17 [History] Multivits Min/Iron/FA/Herb#186 [Hair, Skin & Nails Caplet] 1 tab PO DAILY [History] Omeprazole [PriLOSEC] 20 mg PO DAILY 12/23/17 [History] Prazosin [Minipress] 1 mg PO HS 12/23/17 [History] Tizanidine HCl 2 mg PO Q8H PRN 12/23/17 [History] Trazodone HCl 100 mg PO HS 12/23/17 [History] Turmeric Root Extract [Turmeric] 500 mg PO DAILY 12/23/17 [History] Venlafaxine HCl [Venlafaxine HCl ER] 150 mg PO DAILY 12/23/17 [History] Vitamin B Complex [B Complex] 1 tab PO DAILY 12/23/17 [History] diazePAM [Valium] 3 mg PO TID PRN 12/23/17 [History] 3 Allergy/AdvReac Type Severity Reaction Status Date / Time No Known Allergies Allergy Verified 12/23/17 13:19 All systems: reviewed and no additional remarkable complaints except as stated - Constitutional Constitutional ROS PAL: fatigue - EENT Eyes: as per HPI - Cardiovascular Cardiovascular ROS: as per HPI - Respiratory Respiratory: cough, dyspnea, dyspnea on exertion - Gastrointestinal Gastrointestinal: no abdominal pain, no change in bowel habits - Genitourinary Palliative ROS female: no dysuria, no hematuria - Musculoskeletal Musculoskeletal ROS IM: muscle weakness - Integumentary ROS Integumentary: as per HPI - Neurological Neurological ROS: no focal weakness, no lack of coordination - Psychiatric Psychiatric general PM: no depression, no hopelessness Palliative Care-Exam - Constitutional Vitals: Temp Pulse Resp BP Pulse Ox 98.1 F 131 18 124/91 88 12/28/17 11:02 12/28/17 11:02 12/28/17 11:15 12/28/17 11:02 12/28/17 11:15 General appearance: Present: cooperative, mild distress Exam: Vitals reviewed General appearance: alert, oriented x3, appears comfortable Eyes: nonicteric, left lower eyelid edema EENT: oropharynx moist Neck: supple, no lymphadenopathy, no JVD Chest: decreased breath sounds left >right, mild crackles Cardiovascular: tacycardia, Gastrointestinal: soft, non-tender, non-distended Extremities: no cyanosis, no edema, no clubbing Musculoskeletal: no deformities Neurologic: normal mental status, non-focal exam Psych: mood appropriate, affect normal Internal Medicine - CN: Reslt - Labs CBC & Chem 7: 12/28/17 04:10 12/28/17 04:10 Labs: Short CBC 12/28/17 Range/Units 04:10 WBC 10.8 (4.3-11.1) K/mcL Hgb 11.1 L (11.5-15.4) g/dL Hct 33.8 L (35.3-44.9) % Plt Count 390 (140-400) K/mcL Neutrophils # 9.7 H (1.6-8.9) K/mcL BMP 12/28/17 04:10 Sodium 138 Potassium 3.8 Chloride 104 Carbon Dioxide 20 L BUN 15 Creatinine 0.46 L Glucose 114 H Calcium 8.8 Liver Function 12/28/17 Range/Units 04:10 Total Bilirubin 0.4 (0.3-1.0) mg/dL AST 12 L (13-39) Units/L ALT 10 (7-52) Units/L Alkaline Phosphatase 124 H (34-104) Units/L Albumin 3.1 L (3.5-5.7) g/dL - ABG Interpretation ABG results: PT/INR, D-dimer PT 13.7 Seconds (9.4-12.1) H 12/24/17 03:24 D-Dimer 1391 ng/mLFEU (0-500) H 12/23/17 09:03 Consult Discharge Plan - Plan Referrals: Shawn Mccoy MD [Primary Care Provider] - Palliative Quality Palliative Quality: Screen for Code Status: Yes, Screen for Goals of Care: Yes, Screen for Pain: Yes, If Pain Regimen Started, Initiate Bowel Regimen: NA, Screen for Nausea/Vomitting: Yes Code Status: DNRCC-Arrest, DNI
[2017-12-28] MEDS: traZODone 50 MG TABLET PO SCH (21:20)
[2017-12-29] MEDS: Ipratropium Neb 0.5 MG NEBULIZER IH SCH ×6 (03:48→23:28)
[2017-12-29] MEDS: Levalbuterol Neb 1.25 MG/3 ML IH SCH ×4 (03:48→20:12)
[2017-12-29 05:23] LABS: Basophils % 0.3 %; Hematocrit 32.2 % (35.3-44.9); Hemoglobin 10.4 g/dL (11.5-15.4); Immature Granulocytes % 2.1 % (0-4); Lymphocytes # 0.6 K/mcL (0.6-4.6); Lymphocytes % 5.2 %; Mean Corpuscular HGB Conc 32.3 g/dL (31.6-35.5); Mean Corpuscular Hemoglobin 28.7 pg (28.0-33.3); Mean Platelet Volume 8.7 fL (9.4-12.4); Monocytes # 0.4 K/mcL (0.0-1.3); Monocytes % 3.7 %; Neutrophils # 10.2 K/mcL (1.6-8.9); Platelet Count 425 K/mcL (140-400); Red Blood Count 3.62 M/mcL (3.82-4.97); Red Cell Distribution Width 15.2 % (11.5-14.5); Segmented Neutrophils % 88.7 %
[2017-12-29] MEDS: GuaiFENesin/Codeine Oral Soln 5 ML UDC PO SCH ×4 (05:32→17:20)
[2017-12-29] MEDS: Cefepime HCl 2,000 MG in Water for inj. (sterile) 20 ML 20 ML IVP SCH ×2 (05:32→17:19)
[2017-12-29] MEDS: MethylPREDNISolone 40 MG/ML VIAL IVP SCH ×3 (05:33→17:19)
[2017-12-29 05:44] LABS: Alanine Aminotransferase 11 Units/L (7-52); Albumin 3.2 g/dL (3.5-5.7); Albumin/Globulin Ratio 1.1 (1.1-2.2); Alkaline Phosphatase 121 Units/L (34-104); Aspartate Amino Transferase 13 Units/L (13-39); BUN/Creatinine Ratio 53 (6-26); Bilirubin,Total 0.5 mg/dL (0.3-1.0); Blood Urea Nitrogen 28 mg/dL (8-23); Calcium 8.7 mg/dL (8.6-10.3); Carbon Dioxide 21 mEq/L (23-29); Chloride 106 mEq/L (98-107); Globulin 2.8 g/dL (2.4-3.5); Glucose 138 mg/dL (70-105); Osmolality,Calculated 294 (280-300); Potassium 4.1 mEq/L (3.5-5.1); Sodium 138 mEq/L (136-145); eGFR For Non-African Americans > 60 (> 60)
[2017-12-29] MEDS: *HR* Heparin 5,000 UNIT/ML VIAL SQ SCH ×2 (06:38→17:19)
[2017-12-29] MEDS: Aspirin Enteric Coated 81 MG Tablet PO SCH (08:06)
[2017-12-29] MEDS: Nicotine 21 MG PATCH.TD24 TD SCH (08:06)
[2017-12-29] MEDS: levoFLOXacin 750 MG TABLET PO SCH (08:06)
[2017-12-29] MEDS: Venlafaxine XR (24 HR) 150 MG CAP.ER.24H PO SCH (08:06)
--- NOTE | 2017-12-29 09:24 | Internal Med Progress Note ---
<ErosDelroy S - Last Filed: 12/29/17 11:23> Hospitalist Progress Note - Encounter Date of Encounter: 12/29/17 Time of Encounter: 09:21 - Subjective Interval History: Ms. Mae is a 62 year old female with PMH of COPD, anxiety, arthritis, kidney stones, depression, and osteoporosis. -last week has had URI symptoms and cough. Cough has been nonproductive and she states that she has been feeling very weak. -The pt states she has a hx of COPD and that she has been having increasing SOB from her baseline. -She doesn't take nebulizers as much as she should, according to her. -The pt is still requring 4L of O2 at the hospital but denies home oxygen use. In the ER the pt has a (-) troponin, lactic acid of 0.8. D dimer is 1391 CXR showed Left-sided mediastinal shift, likely related to left-sided volume loss, new since November 18, 2017. Near complete opacification of the left hemithorax, likely related to obstructive atelectasis versus pneumonia, new since November 18, 2017. Multiple lung nodules in right hemithorax measuring up to 2 cm, may be related to metastatic disease or infection, new since April 26, 2011. CT chest showed -no evidence of acute pulmonary emobli -7 x 4 cm masslike consolidation at the left hilar/parahilar region, may be related to neoplastic process, atelectasis or infection. -Multiple nodular consolidations in the right hemithorax, with the largest measuring up to 1.4 cm in the peripheral right lower lobe, may be related to infection/inflammation or metastatic disease, new since August 31, 2017. -Bilateral pleural effusions, large on the left and mild on the right, new since the prior study. -Tissue sampling with bronchoscopy may be beneficial. Stat pulmonolog consult placed -Dr Paige spoken to and pt is s/p bronchoscopy 9.06.11 Pt is seen at bedside today, she has no acute complaints. Palliative was consulted and talked about goals of care. Pt denies chest pain, N/V/D, abd pain. Still has SOB and is on oxymask. - Exam Vitals: Temp Pulse Resp BP Pulse Ox 98.3 F 102 21 119/72 90 12/29/17 04:00 12/29/17 07:59 09/07/18 07:59 12/29/17 07:59 12/29/17 07:59 Exam: general - nad , aox3 cardio - tacycardia , s1s2 cta lungs - decreased breath sounds left >right, mild crackles; abd - NTND, no rebound or guarding skin - intact extremities - no edema - Assessment and Plan (1) Acute exacerbation of chronic obstructive airways disease Current Visit: Yes Status: Acute Assessment and Plan: CXR showed Left-sided mediastinal shift, likely related to left-sided volume loss, new since November 18, 2017. Near complete opacification of the left hemithorax, likely related to obstructive atelectasis versus pneumonia, new since November 18, 2017. Multiple lung nodules in right hemithorax measuring up to 2 cm, may be related to metastatic disease or infection, new since April 26, 2011. CT chest showed - no PE; masslike consolidation right hemithorax maybe neoplasm ; possible adrenal and bony mets -no evidence of acute pulmonary emobli Pt is s/p bronchoscopy completed on 12/24/17 --suspicious left lower lobe lesion , friable mucosa in left upper lobe/left lower lobe -biopsies taken S pneumo, legionella antigens negative, blood cultures negative Acid fast cx negative Gram stain negative Plan: -BiPAP if pt is compliant, palliative saw pt and discussed changing to DNRCCDNI. -Pt is on Levaquin (day 3), and cefepime (day 4) -Vancomycin d/c on 12/27/17 -Robutusin , albuterol -methylprednisone 40mg q8hr -Ativan, Valium for anxiety -regular diet -keep o2 >90% -cbc in AM, CMP -check myoplasma IgM pending -bronchoscopy biopsies pending -start cardizem 240mg (2) Community acquired pneumonia Current Visit: Yes Status: Acute Assessment and Plan: CXR showed Left-sided mediastinal shift, likely related to left-sided volume loss, new since November 18, 2017. Near complete opacification of the left hemithorax, likely related to obstructive atelectasis versus pneumonia, new since November 18, 2017. Multiple lung nodules in right hemithorax measuring up to 2 cm, may be related to metastatic disease or infection, new since April 26, 2011. Pt white count today is 11.5 -remains afebrile -HR 112 strep pneumo/legionella urine antigens negative; blood cx negative Plan: -azithromycin 500mg PO daily, rocephin 1g IV q24hr are discontinued -Pt is on Levaquin (day 3), and cefepime (day 4) -d/c Vanc 12/27/17 -d/c duobebs, start Atrovent -d/c Mucomyst -10mL Robutusin -methylprednisolone -check myoplasma IgM (3) Lung cancer Current Visit: Yes Status: Suspected Assessment and Plan: CXR showed Left-sided mediastinal shift, likely related to left-sided volume loss, new since November 18, 2017. Near complete opacification of the left hemithorax, likely related to obstructive atelectasis versus pneumonia, new since November 18, 2017. Multiple lung nodules in right hemithorax measuring up to 2 cm, may be related to metastatic disease or infection, new since April 26, 2011. CT chest showed -no evidence of acute pulmonary emobli -masslike consildation, possibly neoplastic; possible adrenal and bony mets Pt is s/p bronchoscopy completed on 12/24/17 --suspicious left lower lobe lesion -bilateral hilar lymphadenopathy -friable mucosa in left upper lobe/left lower lobe -biopsies taken CT head negative for metastasis Plan: -s/p bronchoscopy. AFB, fungal, gram stain and biospies are pending -stat pulmonology consult, DR Paige following -r/o metastatic disease, may benefit from PET scan -consulted heme onc (9.4.18) -consulted palliative (9.6.18) (4) Hypokalemia Current Visit: Yes Status: Resolved Assessment and Plan: Potassium of 3.4 this (12/27/17) -given 20mEq PO potassium chloride -monitor electrolytes Potassium today 4.1 - Time Spent with Patient Total time spent is greater than 50% in coordination of care (as documented) at patient's floor/unit and/or counseling patient: less than 15 minutes Plan of Care Discussed with: patient Internal Medicine: Result - Labs CBC & Chem 7: 12/29/17 04:11 12/29/17 04:11 Labs: Short CBC 12/29/17 Range/Units 04:11 WBC 11.5 H (4.3-11.1) K/mcL Hgb 10.4 L (11.5-15.4) g/dL Hct 32.2 L (35.3-44.9) % Plt Count 425 H (140-400) K/mcL Neutrophils # 10.2 H (1.6-8.9) K/mcL BMP 12/29/17 04:11 Sodium 138 Potassium 4.1 Chloride 106 Carbon Dioxide 21 L BUN 28 H Creatinine 0.53 L Glucose 138 H Calcium 8.7 Liver Function 12/29/17 Range/Units 04:11 Total Bilirubin 0.5 (0.3-1.0) mg/dL AST 13 (13-39) Units/L ALT 11 (7-52) Units/L Alkaline Phosphatase 121 H (34-104) Units/L Albumin 3.2 L (3.5-5.7) g/dL - ABG Interpretation ABG results: PT/INR, D-dimer PT 13.7 Seconds (9.4-12.1) H 12/24/17 03:24 D-Dimer 1391 ng/mLFEU (0-500) H 12/23/17 09:03 Consult Discharge Plan - Plan Referrals: Shawn Mccoy MD [Primary Care Provider] - <Brian Fung - Last Filed: 12/29/17 17:43> Hospitalist Progress Note - Encounter Date of Encounter: 12/29/17 - Exam Vitals: Temp Pulse Resp BP Pulse Ox 98.1 F 102 19 112/66 93 12/29/17 16:44 12/29/17 16:44 12/29/17 16:44 12/29/17 16:44 12/29/17 16:44 - Assessment and Plan (1) Community acquired pneumonia Current Visit: Yes Status: Acute (2) Acute exacerbation of chronic obstructive airways disease Current Visit: Yes Status: Acute (3) Lung cancer Current Visit: Yes Status: Suspected (4) Hypokalemia Current Visit: Yes Status: Resolved - Time Spent with Patient Total time spent is greater than 50% in coordination of care (as documented) at patient's floor/unit and/or counseling patient: Internal Medicine: Result - Labs CBC & Chem 7: 12/29/17 04:11 12/29/17 04:11 Labs: Short CBC 12/29/17 Range/Units 04:11 WBC 11.5 H (4.3-11.1) K/mcL Hgb 10.4 L (11.5-15.4) g/dL Hct 32.2 L (35.3-44.9) % Plt Count 425 H (140-400) K/mcL Neutrophils # 10.2 H (1.6-8.9) K/mcL BMP 12/29/17 04:11 Sodium 138 Potassium 4.1 Chloride 106 Carbon Dioxide 21 L BUN 28 H Creatinine 0.53 L Glucose 138 H Calcium 8.7 Liver Function 12/29/17 Range/Units 04:11 Total Bilirubin 0.5 (0.3-1.0) mg/dL AST 13 (13-39) Units/L ALT 11 (7-52) Units/L Alkaline Phosphatase 121 H (34-104) Units/L Albumin 3.2 L (3.5-5.7) g/dL - ABG Interpretation ABG results: PT/INR, D-dimer PT 13.7 Seconds (9.4-12.1) H 12/24/17 03:24 D-Dimer 1391 ng/mLFEU (0-500) H 12/23/17 09:03 - Impressions Impressions Chest X-Ray 12/29/17 08:32 IMPRESSION: Complete opacification of the left hemithorax. D/ / 12/29/2017 13:19:09 Luc Rojo MD / shiva Interpreting Provider: Luc Rojo MD - Attending Attestation I examined this patient and my medical decision-making was reviewed with the Resident Physician Dr. Cooney. I agree with the documented findings, disposition and treatment plan as described except to the extent set forth below. Ms. Mae is a 62 year old female with PMH of COPD, not on home O2 dependent, anxiety, arthritis, kidney stones, depression, and osteoporosis pt admitted here for acute pneumonia and COPD exacerbation. pt is till on 10 lit NC O2. denied any CP. Still has severe SOB and MORALES. Gen: moderate resp distress..Able to finish full sentence with out pause Chest: Diminished BS b/l, severe wheezing, ronchi+ a/p 1. Acute hypoxic resp failure 2. Acute COPD exacerbation 3. Acute pneumonia 4. Left lung mass still in severe resp distress and on 10 lit O2.. Severe wheezing noticed Cont on high dose IV steroids Duoneb and broad spec abx s/p bronch-- Path pending Pulm and Heme Onc on board Will encourage to use BiPAP more frequently Ativan PRN 5. Sinus tachycardia d/c Duoneb Xopenox and Atrovent Neb Q6hr Switched to Cardizem CD 240mg Talked to the pt's family and explained to them about current care of plan <Delroy Cooney S - Last Filed: 12/29/17 11:23> (2) Community acquired pneumonia Qualifiers: Laterality: left Lung location: unspecified part of lung Qualified Code(s): J18.9 - Pneumonia, unspecified organism <Brian Fung - Last Filed: 12/29/17 17:43> (1) Community acquired pneumonia Qualifiers: Laterality: left Lung location: unspecified part of lung Qualified Code(s): J18.9 - Pneumonia, unspecified organism (3) Lung cancer Qualifiers: Laterality: unspecified laterality Lung location: unspecified part of lung Qualified Code(s): C34.90 - Malignant neoplasm of unspecified part of unspecified bronchus or lung
--- NOTE | 2017-12-29 10:42 | Palliative Progress Note ---
Date of Encounter: 12/29/17 Time of Encounter: 09:00 - Assessment and plan (1) Goals of care, counseling/discussion Current Visit: Yes Status: Acute Assessment and plan: Pt remains DNRCC-A/DNI. Further GOC discussion pending pathology report. (2) Acute exacerbation of chronic obstructive airways disease Current Visit: Yes Status: Acute Assessment and plan: Management per pulmonary on Symbicort and duonebs on empiric abx coverage with Cefepime, Levaquin, and Vanc On 40mg po prednisone AFB and GMS negative from bronchoscopy Encouraged to use BiPAP, especially at night. (3) Lesion of left lung Current Visit: Yes Status: Acute Assessment and plan: CT revealed hilar lymphadenopathy with L masslike consolidation Concerning for malignancy with lymph node involvement s/p bronchosopy with BAL and endobronchial biopsies on 12/24 Oncology was consulted, awaiting pathology - Time Spent With Patient Total time spent is greater than 50% in coordination of care (as documented) at patient's floor/unit and/or counseling patient: 25 - 35 minutes - Subjective Interval history: Patient overnight still refusing BiPAP because of feeling of suffocation. At the time of exam, pt was sitting on bed, eating breakfast. Kenji at the bedside. she refers to be feeling better than yesterday. Pt is on NC at 10L , O2 sat 86-89. - Constitutional Vitals: Abnormal lab results WBC 11.5 K/mcL (4.3-11.1) H 12/29/17 04:11 RBC 3.62 M/mcL (3.82-4.97) L 12/29/17 04:11 Hgb 10.4 g/dL (11.5-15.4) L 12/29/17 04:11 Hct 32.2 % (35.3-44.9) L 12/29/17 04:11 RDW 15.2 % (11.5-14.5) H 12/29/17 04:11 Plt Count 425 K/mcL (140-400) H 12/29/17 04:11 MPV 8.7 fL (9.4-12.4) L 12/29/17 04:11 Neutrophils # 10.2 K/mcL (1.6-8.9) H 12/29/17 04:11 PT 13.7 Seconds (9.4-12.1) H 12/24/17 03:24 D-Dimer 1391 ng/mLFEU (0-500) H 12/23/17 09:03 Carbon Dioxide 21 mEq/L (23-29) L 12/29/17 04:11 BUN 28 mg/dL (8-23) H 12/29/17 04:11 Creatinine 0.53 mg/dL (0.60-1.20) L 12/29/17 04:11 BUN/Creatinine Ratio 53 (6-26) H 12/29/17 04:11 Glucose 138 mg/dL (70-105) H 12/29/17 04:11 Alkaline Phosphatase 121 Units/L (34-104) H 12/29/17 04:11 Serum Total Protein 6.0 g/dL (6.4-8.9) L 12/29/17 04:11 Albumin 3.2 g/dL (3.5-5.7) L 12/29/17 04:11 Fluid Appearance Hazy (Clear) A 12/24/17 09:26 Vancomycin Trough 12 mcg/mL (5-10) H 12/27/17 02:45 Mycoplasma pneumon IgG 0.15 U/L (<=0.09) H 12/23/17 15:07 Exam: Vitals reviewed General appearance: alert, oriented x3, appears comfortable Eyes: nonicteric, left lower eyelid edema EENT: oropharynx moist Neck: supple, no lymphadenopathy, no JVD Chest: decreased breath sounds left >right, mild crackles Cardiovascular: tacycardia, Gastrointestinal: soft, non-tender, non-distended Extremities: no cyanosis, no edema, no clubbing Musculoskeletal: no deformities Neurologic: normal mental status, non-focal exam Psych: mood appropriate, affect normal Palliative Quality Palliative Quality: Screen for Code Status: Yes, Screen for Goals of Care: Yes, Screen for Pain: Yes, If Pain Regimen Started, Initiate Bowel Regimen: NA, Screen for Nausea/Vomitting: Yes Code Status: 12/29/17 09:26 CODE [Resuscitation Status: Active] [RES] Routine Comment: Resuscitation Status: [id number] - Labs CBC & Chem 7: 12/29/17 04:11 12/29/17 04:11 Labs: Laboratory Results - last 24 hr 12/29/17 12/29/17 04:11 04:11 WBC 11.5 H RBC 3.62 L Hgb 10.4 L Hct 32.2 L MCV 89.0 MCH 28.7 MCHC 32.3 RDW 15.2 H Plt Count 425 H MPV 8.7 L Immature Gran % 2.1 Seg Neutrophils % 88.7 Lymphocytes % 5.2 Monocytes % 3.7 Eosinophils % 0.0 Basophils % 0.3 Neutrophils # 10.2 H Lymphocytes # 0.6 Monocytes # 0.4 Eosinophils # 0.0 Basophils # 0.0 Sodium 138 Potassium 4.1 Chloride 106 Carbon Dioxide 21 L BUN 28 H Creatinine 0.53 L Est GFR ( Amer) > 60 Est GFR (Non-Af Amer) > 60 BUN/Creatinine Ratio 53 H Glucose 138 H Calculated Osmolality 294 Calcium 8.7 Total Bilirubin 0.5 AST 13 ALT 11 Alkaline Phosphatase 121 H Serum Total Protein 6.0 L Albumin 3.2 L Globulin 2.8 Albumin/Globulin Ratio 1.1 - ABG Interpretation ABG results: PT/INR, D-dimer PT 13.7 Seconds (9.4-12.1) H 12/24/17 03:24 D-Dimer 1391 ng/mLFEU (0-500) H 12/23/17 09:03 Consult Discharge Plan - Plan Referrals: Shawn Mccoy MD [Primary Care Provider] -
[2017-12-29] MEDS: Diltiazem CD (24hr) 240 MG CAPSULE PO SCH (11:32)
--- NOTE | 2017-12-29 13:12 | Pulmonology Progress Note ---
<ToñoJyotiMynor A - Last Filed: 12/29/17 13:49> Date of Encounter: 12/29/17 Time of Encounter: 11:00 Assessment and Plan (1) Acute exacerbation of chronic obstructive airways disease Current Visit: Yes Status: Acute Continue symbicort and duonebs Continue empiric abx coverage with Cefepime, Levaquin, and Vanc AFB and GMS negative from bronchoscopy Continue steroids Discussed the importance of BiPap. Pt verbalized understanding that not using BiPap could lead to worsening respiratory failure. Pt does not wish to be intubated. (2) Lesion of left lung Current Visit: Yes Status: Acute s/p bronchosopy with BAL and endobronchial biopsies on 12/24 Biopsy samples are being sent to [facility] for consultation. No preliminary report given. Results expected some time next week. (3) Hilar adenopathy Current Visit: Yes Status: Acute CT revealed hilar lymphadenopathy with L masslike consolidation Concerning for malignancy with lymph node involvement as above await pathology Subjective Principal diagnosis: COPD exacerbation Interval history: Ms. Mae is a 62F with PMH of COPD, arthritis, and osteoporosis who presented to the ED on 12/23 with 2 weeks duration of increased non-productive cough, weakness, and dyspnea. CXR revealed L mediastinal shift with L sided opacification. CT chest revealed a 7x4cm masslike consolidation on the left bronchus with partial collapse of the left lung, and hilar adenopathy. Underwent bronchoscopy with BAL and endobronchial biopsies on 12/24. No acute events overnight. No new or acute complaints. Denies any fever, chills , chest pain, nausea, vomiting, numbness, tingling, or headache. Objective PUL Vital signs: Last Vital Signs Temp 98.2 F 12/29/17 12:00 Pulse 117 12/29/17 12:00 Resp 19 12/29/17 12:00 BP 119/67 12/29/17 12:00 Pulse Ox 89 12/29/17 12:00 General appearance: no acute distress Eyes: nonicteric ENT: oropharynx moist Neck: supple, no lymphadenopathy, no JVD Effort: normal Auscultation: left: diminished breath sounds (left upper >lower ), rales (upper ), right: clear Percussion: bilateral: not dull Tactile fremitus: bilateral: normal Cardiovascular: regular rate and rhythm Gastrointestinal: soft, non-tender, non-distended Integumentary: normal Extremities: no cyanosis, no edema, no clubbing, pink and warm Musculoskeletal: no deformities Gait: normal posture normal mental status, non-focal exam mood appropriate, affect normal Results - Laboratory Findings CBC and BMP: 12/29/17 04:11 12/29/17 04:11 PT/INR, D-dimer PT 13.7 Seconds (9.4-12.1) H 12/24/17 03:24 D-Dimer 1391 ng/mLFEU (0-500) H 12/23/17 09:03 Abnormal lab findings: Abnormal lab results WBC 11.5 K/mcL (4.3-11.1) H 12/29/17 04:11 RBC 3.62 M/mcL (3.82-4.97) L 12/29/17 04:11 Hgb 10.4 g/dL (11.5-15.4) L 12/29/17 04:11 Hct 32.2 % (35.3-44.9) L 12/29/17 04:11 RDW 15.2 % (11.5-14.5) H 12/29/17 04:11 Plt Count 425 K/mcL (140-400) H 12/29/17 04:11 MPV 8.7 fL (9.4-12.4) L 12/29/17 04:11 Neutrophils # 10.2 K/mcL (1.6-8.9) H 12/29/17 04:11 PT 13.7 Seconds (9.4-12.1) H 12/24/17 03:24 D-Dimer 1391 ng/mLFEU (0-500) H 12/23/17 09:03 Carbon Dioxide 21 mEq/L (23-29) L 12/29/17 04:11 BUN 28 mg/dL (8-23) H 12/29/17 04:11 Creatinine 0.53 mg/dL (0.60-1.20) L 12/29/17 04:11 BUN/Creatinine Ratio 53 (6-26) H 12/29/17 04:11 Glucose 138 mg/dL (70-105) H 12/29/17 04:11 Alkaline Phosphatase 121 Units/L (34-104) H 12/29/17 04:11 Serum Total Protein 6.0 g/dL (6.4-8.9) L 12/29/17 04:11 Albumin 3.2 g/dL (3.5-5.7) L 12/29/17 04:11 Fluid Appearance Hazy (Clear) A 12/24/17 09:26 Vancomycin Trough 12 mcg/mL (5-10) H 12/27/17 02:45 Mycoplasma pneumon IgG 0.15 U/L (<=0.09) H 12/23/17 15:07 - Microbiology Findings Microbiology Findings: Microbiology, Last 48 Hours 12/24/17 09:26 Respiratory Culture - Final Left Lower Lobe Lung - Clinical Findings Intake & Output: Intake & Output 12/28/17 12/29/17 12/29/17 23:59 07:59 15:59 Intake Total 20 / 20 0 / 0 240 / 240 Output Total 150 / 150 Balance -130 / -130 0 / 0 240 / 240 Weight 57 kg Consult Discharge Plan - Plan Referrals: Shawn Mccoy MD [Primary Care Provider] - <Brittney Ferguson - Last Filed: 12/29/17 13:57> Date of Encounter: 12/29/17 Assessment and Plan (1) Lesion of left lung Current Visit: Yes Status: Acute (2) Hilar adenopathy Current Visit: Yes Status: Acute (3) Acute exacerbation of chronic obstructive airways disease Current Visit: Yes Status: Acute Objective PUL Vital signs: Last Vital Signs Temp 98.2 F 12/29/17 12:00 Pulse 117 12/29/17 12:00 Resp 19 12/29/17 12:00 BP 119/67 12/29/17 12:00 Pulse Ox 89 12/29/17 12:00 Results - Laboratory Findings CBC and BMP: 12/29/17 04:11 12/29/17 04:11 PT/INR, D-dimer PT 13.7 Seconds (9.4-12.1) H 12/24/17 03:24 D-Dimer 1391 ng/mLFEU (0-500) H 12/23/17 09:03 Abnormal lab findings: Abnormal lab results WBC 11.5 K/mcL (4.3-11.1) H 12/29/17 04:11 RBC 3.62 M/mcL (3.82-4.97) L 12/29/17 04:11 Hgb 10.4 g/dL (11.5-15.4) L 12/29/17 04:11 Hct 32.2 % (35.3-44.9) L 12/29/17 04:11 RDW 15.2 % (11.5-14.5) H 12/29/17 04:11 Plt Count 425 K/mcL (140-400) H 12/29/17 04:11 MPV 8.7 fL (9.4-12.4) L 12/29/17 04:11 Neutrophils # 10.2 K/mcL (1.6-8.9) H 12/29/17 04:11 PT 13.7 Seconds (9.4-12.1) H 12/24/17 03:24 D-Dimer 1391 ng/mLFEU (0-500) H 12/23/17 09:03 Carbon Dioxide 21 mEq/L (23-29) L 12/29/17 04:11 BUN 28 mg/dL (8-23) H 12/29/17 04:11 Creatinine 0.53 mg/dL (0.60-1.20) L 12/29/17 04:11 BUN/Creatinine Ratio 53 (6-26) H 12/29/17 04:11 Glucose 138 mg/dL (70-105) H 12/29/17 04:11 Alkaline Phosphatase 121 Units/L (34-104) H 12/29/17 04:11 Serum Total Protein 6.0 g/dL (6.4-8.9) L 12/29/17 04:11 Albumin 3.2 g/dL (3.5-5.7) L 12/29/17 04:11 Fluid Appearance Hazy (Clear) A 12/24/17 09:26 Vancomycin Trough 12 mcg/mL (5-10) H 12/27/17 02:45 Mycoplasma pneumon IgG 0.15 U/L (<=0.09) H 12/23/17 15:07 - Microbiology Findings Microbiology Findings: Microbiology, Last 48 Hours 12/24/17 09:26 Respiratory Culture - Final Left Lower Lobe Lung - Clinical Findings Intake & Output: Intake & Output 12/28/17 12/29/17 12/29/17 23:59 07:59 15:59 Intake Total 20 / 20 0 / 0 240 / 240 Output Total 150 / 150 Balance -130 / -130 0 / 0 240 / 240 Weight 57 kg - Attending Attestation I examined this patient and my medical decision-making was reviewed with the Resident Physician. I agree with the documented findings, disposition and treatment plan as described except to the extent set forth below. Patient seen and examined. Labs, radiology, chart personally reviewed. 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 She is tolerating high flow oxygen without any complications. Discussed with patient and family at the bedside and answered all questions.
[2017-12-29] MEDS: traZODone 50 MG TABLET PO SCH (20:04)
[2017-12-29] MEDS ORDERED: Isovue-370 500 ML INFUS..BTL IV ONE (21:22)
[2017-12-30] MEDS: MethylPREDNISolone 40 MG/ML VIAL IVP SCH ×3 (01:05→16:38)
[2017-12-30] MEDS: GuaiFENesin/Codeine Oral Soln 5 ML UDC PO SCH ×4 (01:05→18:34)
[2017-12-30] MEDS: Ipratropium Neb 0.5 MG NEBULIZER IH SCH ×6 (03:49→23:17)
[2017-12-30] MEDS: Levalbuterol Neb 1.25 MG/3 ML IH SCH ×4 (03:49→21:23)
[2017-12-30 04:32] LABS: Alanine Aminotransferase 12 Units/L (7-52); Albumin/Globulin Ratio 1.1 (1.1-2.2); Alkaline Phosphatase 122 Units/L (34-104); Aspartate Amino Transferase 11 Units/L (13-39); BUN/Creatinine Ratio 72 (6-26); Bilirubin,Total 0.5 mg/dL (0.3-1.0); Blood Urea Nitrogen 33 mg/dL (8-23); Calcium 8.5 mg/dL (8.6-10.3); Carbon Dioxide 24 mEq/L (23-29); Chloride 105 mEq/L (98-107); Globulin 2.7 g/dL (2.4-3.5); Glucose 170 mg/dL (70-105); Osmolality,Calculated 293 (280-300); Potassium 4.2 mEq/L (3.5-5.1); Sodium 136 mEq/L (136-145); Total Protein 5.7 g/dL (6.4-8.9); eGFR For Non-African Americans > 60 (> 60)
[2017-12-30 04:52] LABS: Basophils % 0.3 %; Hematocrit 29.9 % (35.3-44.9); Hemoglobin 9.6 g/dL (11.5-15.4); Immature Granulocytes % 2.5 % (0-4); Lymphocytes # 0.5 K/mcL (0.6-4.6); Lymphocytes % 3.8 %; Mean Corpuscular HGB Conc 32.1 g/dL (31.6-35.5); Mean Corpuscular Hemoglobin 28.7 pg (28.0-33.3); Mean Corpuscular Volume 89.3 fL (83.0-100.0); Mean Platelet Volume 8.8 fL (9.4-12.4); Monocytes # 0.6 K/mcL (0.0-1.3); Monocytes % 4.3 %; Neutrophils # 11.6 K/mcL (1.6-8.9); Platelet Count 387 K/mcL (140-400); Red Blood Count 3.35 M/mcL (3.82-4.97); Red Cell Distribution Width 15.3 % (11.5-14.5); Segmented Neutrophils % 89.1 %
[2017-12-30] MEDS: Cefepime HCl 2,000 MG in Water for inj. (sterile) 20 ML 20 ML IVP SCH (06:22)
[2017-12-30] MEDS: *HR* Heparin 5,000 UNIT/ML VIAL SQ SCH ×2 (06:23→16:36)
--- NOTE | 2017-12-30 07:23 | Pulmonology Progress Note ---
Date of Encounter: 12/30/17 Time of Encounter: 07:22 Assessment and Plan (1) Acute and chronic respiratory failure with hypoxia Current Visit: Yes Status: Acute Continue high flow oxygen to keep saturation greater than 89% I reinforced the need for aggressive bronchopulmonary toileting including incentive spirometry and out of bed to chair this is crucial for lung recruitment to mitigate the effects of atelectasis and VQ mismatch (2) Community acquired pneumonia Current Visit: Yes Status: Acute Continue antimicrobials for a total of 7-10 days and clinical course I see little utility in the combination of cefepime and Levaquin in this situation and suspect suspect monotherapy with respiratory fluoroquinolone would be sufficient coverage Qualifiers: Laterality: left Lung location: unspecified part of lung Qualified Code(s ): J18.9 - Pneumonia, unspecified organism (3) Acute exacerbation of chronic obstructive airways disease Current Visit: Yes Status: Acute Continue steroids and bronchodilators (4) Lesion of left lung Current Visit: Yes Status: Acute This is concerning for primary lung malignancy pending final pathology interpretation that was sent to outside facility ([facility]) hopefully should be available early part of this upcoming week (5) Goals of care, counseling/discussion Current Visit: Yes Status: Acute Palliative care following 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 Mae states that she is feeling pretty good. She is sitting up in bed and getting ready to start eating breakfast. She is tolerated high flow nasal cannula exceptionally well and says that she feels much less dyspneic with this modality oxygen delivery I suspect in large part related to the high flow aspect. Currently on 40 L and about 70% FiO2 with saturation in the mid to high 90s Objective PUL Vital signs: Last Vital Signs Temp 97.7 F 12/30/17 07:08 Pulse 92 12/30/17 07:08 Resp 19 12/30/17 07:08 BP 117/66 12/30/17 07:08 Pulse Ox 97 12/30/17 07:08 General appearance: no acute distress, other (Thin frail-appearing) Eyes: nonicteric ENT: oropharynx moist Neck: supple Auscultation: left: rhonchi, bilateral: diminished breath sounds Cardiovascular: regular rate and rhythm Gastrointestinal: normoactive bowel sounds, soft Integumentary: normal Extremities: no cyanosis, no edema, no clubbing Musculoskeletal: no deformities normal mental status, non-focal exam mood appropriate Results - Laboratory Findings CBC and BMP: 12/30/17 03:30 12/30/17 03:30 PT/INR, D-dimer PT 13.7 Seconds (9.4-12.1) H 12/24/17 03:24 D-Dimer 1391 ng/mLFEU (0-500) H 12/23/17 09:03 Abnormal lab findings: Abnormal lab results WBC 13.0 K/mcL (4.3-11.1) H 12/30/17 03:30 RBC 3.35 M/mcL (3.82-4.97) L 12/30/17 03:30 Hgb 9.6 g/dL (11.5-15.4) L 12/30/17 03:30 Hct 29.9 % (35.3-44.9) L 12/30/17 03:30 RDW 15.3 % (11.5-14.5) H 12/30/17 03:30 MPV 8.8 fL (9.4-12.4) L 12/30/17 03:30 Neutrophils # 11.6 K/mcL (1.6-8.9) H 12/30/17 03:30 Lymphocytes # 0.5 K/mcL (0.6-4.6) L 12/30/17 03:30 PT 13.7 Seconds (9.4-12.1) H 12/24/17 03:24 D-Dimer 1391 ng/mLFEU (0-500) H 12/23/17 09:03 BUN 33 mg/dL (8-23) H 12/30/17 03:30 Creatinine 0.46 mg/dL (0.60-1.20) L 12/30/17 03:30 BUN/Creatinine Ratio 72 (6-26) H 12/30/17 03:30 Glucose 170 mg/dL (70-105) H 12/30/17 03:30 Calcium 8.5 mg/dL (8.6-10.3) L 12/30/17 03:30 AST 11 Units/L (13-39) L 12/30/17 03:30 Alkaline Phosphatase 122 Units/L (34-104) H 12/30/17 03:30 Serum Total Protein 5.7 g/dL (6.4-8.9) L 12/30/17 03:30 Albumin 3.0 g/dL (3.5-5.7) L 12/30/17 03:30 Fluid Appearance Hazy (Clear) A 12/24/17 09:26 Vancomycin Trough 12 mcg/mL (5-10) H 12/27/17 02:45 Mycoplasma pneumon IgG 0.15 U/L (<=0.09) H 12/23/17 15:07 - Diagnostic Findings Chest x-ray: report reviewed, image reviewed CT scan - chest: report reviewed, image reviewed - Clinical Findings Intake & Output: Intake & Output 12/29/17 12/29/17 12/30/17 15:59 23:59 07:59 Intake Total 360 / 360 140 / 140 200 / 200 Balance 360 / 360 140 / 140 200 / 200 Weight 56.4 kg Consult Discharge Plan - Plan Referrals: Shawn Mccoy MD [Primary Care Provider] -
[2017-12-30] MEDS: Nicotine 21 MG PATCH.TD24 TD SCH (08:13)
[2017-12-30] MEDS: Aspirin Enteric Coated 81 MG Tablet PO SCH (08:14)
[2017-12-30] MEDS: Venlafaxine XR (24 HR) 150 MG CAP.ER.24H PO SCH (08:14)
[2017-12-30] MEDS: Diltiazem CD (24hr) 240 MG CAPSULE PO SCH (08:14)
[2017-12-30] MEDS: levoFLOXacin 750 MG TABLET PO SCH (08:15)
[2017-12-30] MEDS ORDERED: Lactulose Oral Soln 20 GM/30 ML UDC PO PRN (09:47)
--- NOTE | 2017-12-30 11:59 | Internal Med Progress Note ---
Hospitalist Progress Note - Encounter Date of Encounter: 12/30/17 Time of Encounter: 09:30 - Subjective Interval History: Ms. Mae is a 62 year old female with PMH of COPD, not on home O2 dependent, anxiety, arthritis, kidney stones, depression, and osteoporosis pt admitted here for acute pneumonia and COPD exacerbation. Still has severe SOB and MORALES. Pt was placed on high flow O2 @ FiO2 70%.. Pt states she is feeling better today. Denied any CP - Exam Vitals: Temp Pulse Resp BP Pulse Ox 97.7 F 103 18 128/70 96 12/30/17 07:08 12/30/17 10:34 12/30/17 11:34 12/30/17 11:34 12/30/17 11:34 Exam: Gen: Alert, awake, Oriented to time,place and person Chest: Diminished breath sounds B/L, moderate wheezing, No crackles, No rales, Ronchi+ Heart: S1S2+ tachycardia No murmurs Abd: Soft, NT, BS +, No organomegaly Ext: No edema, pulses are palpable, No calf tenderness Neuro : Benign findings Skin: No rash. - Assessment and Plan (1) Acute respiratory failure with hypoxia Current Visit: Yes Status: Acute Assessment and Plan: Cont high flow O2 recommend frequent ICS OOB ot Chair Chest percussion therapy appreciate Pulm recommendations talked to pt's at bed side and explained to them about current care (2) Community acquired pneumonia Current Visit: Yes Status: Acute Assessment and Plan: mostly bacterial Improving WBC slightly elevated. continue deescalating Abx d/c Cefepime cont Levofloxacin for total 10 days course (3) Acute exacerbation of chronic obstructive airways disease Current Visit: Yes Status: Acute Assessment and Plan: Improving Cont high flow O2 Encouraged to use more frequent BiPAP Cont Neb treatment cont tapering steroids (4) Lung cancer Current Visit: Yes Status: Suspected Assessment and Plan: s/p bronchoscopy. AFB, fungal, gram stain - negative biopsy report pending) (5) Hypokalemia Current Visit: Yes Status: Resolved Assessment and Plan: resolved (6) Constipation Current Visit: Yes Status: Acute Assessment and Plan: started on stool softeners - Time Spent with Patient Total time spent is greater than 50% in coordination of care (as documented) at patient's floor/unit and/or counseling patient: Internal Medicine: Result - Labs CBC & Chem 7: 12/30/17 03:30 12/30/17 03:30 Labs: Short CBC 12/30/17 Range/Units 03:30 WBC 13.0 H (4.3-11.1) K/mcL Hgb 9.6 L (11.5-15.4) g/dL Hct 29.9 L (35.3-44.9) % Plt Count 387 (140-400) K/mcL Neutrophils # 11.6 H (1.6-8.9) K/mcL BMP 12/30/17 03:30 Sodium 136 Potassium 4.2 Chloride 105 Carbon Dioxide 24 BUN 33 H Creatinine 0.46 L Glucose 170 H Calcium 8.5 L Liver Function 12/30/17 Range/Units 03:30 Total Bilirubin 0.5 (0.3-1.0) mg/dL AST 11 L (13-39) Units/L ALT 12 (7-52) Units/L Alkaline Phosphatase 122 H (34-104) Units/L Albumin 3.0 L (3.5-5.7) g/dL - ABG Interpretation ABG results: PT/INR, D-dimer PT 13.7 Seconds (9.4-12.1) H 12/24/17 03:24 D-Dimer 1391 ng/mLFEU (0-500) H 12/23/17 09:03 - Impressions Impressions Chest X-Ray 12/29/17 08:32 IMPRESSION: Complete opacification of the left hemithorax. D/ / 12/29/2017 13:19:09 [facility] Provider: Luc Rojo MD Abdomen/Pelvis CT 12/30/17 23:50 IMPRESSION: Interval development of small right pleural effusion and increased dependent right lower lobe airspace disease, likely atelectasis. Bilateral scratch the bibasilar pulmonary nodules measuring up to 1.5 cm in the right. Although findings could be infectious or inflammatory, metastatic disease is a concern, particularly given enlargement of the medial limb of the right adrenal gland which is new since August 2017. Cholelithiasis. Mild intra/extrahepatic biliary ductal dilation. Correlation for downstream bile duct obstruction is recommended. Bilateral nephrolithiasis. Large amount of stool within the proximal colon. D/ / Mariana Beck Cha, MD / Mariana Beck Cha, MD Interpreting Provider: Mariana Beck Cha, MD Consult Discharge Plan - Plan Referrals: Shawn Mccoy MD [Primary Care Provider] - (2) Community acquired pneumonia Qualifiers: Laterality: left Lung location: unspecified part of lung Qualified Code(s): J18.9 - Pneumonia, unspecified organism (4) Lung cancer Qualifiers: Laterality: unspecified laterality Lung location: unspecified part of lung Qualified Code(s): C34.90 - Malignant neoplasm of unspecified part of unspecified bronchus or lung
--- NOTE | 2017-12-30 12:35 | Oncology Inp Progress Note ---
Date of Encounter: 12/30/17 Time of Encounter: 09:00 (1) Lesion of left lung Current Visit: Yes Status: Acute Assessment and plan: s/p bronch bx with adenopthy and post obstructive changes, concerninfor malignancy. On abx for pnemonia and requires oxygen support. Ct abd findings reviewed. Await final path for discussion with patient. Plan dw pt/fmly bedside Oncology: Subj Interval history: PAtient on O2 mild distress, denies complaints - Constitutional Vitals: Vital Signs Temp Pulse Resp BP Pulse Ox 12/30/17 11:34 18 128/70 96 12/30/17 10:34 103 21 128/70 92 12/30/17 07:12 17 92 12/30/17 07:08 97.7 F 92 19 117/66 97 12/30/17 04:00 98.6 F 90 18 111/70 95 12/30/17 03:49 19 93 12/29/17 23:28 20 97 12/29/17 20:12 18 91 12/29/17 20:00 98.4 F 108 18 124/76 86 12/29/17 16:44 98.1 F 102 19 112/66 93 12/29/17 15:59 20 91 Intake and Output 12/29/17 12/30/17 12/30/17 23:59 07:59 15:59 Intake Total 140 / 140 200 / 200 Balance 140 / 140 200 / 200 Intake: IV Fluids 20 / 20 20 / 20 Maxipime 2,000 MG In Water for 20 / 20 20 / 20 inj. (sterile) 20 ML @ 300 mls/ hr IVP Q12HR [place] Rx#:[id number] Oral 120 / 120 180 / 180 Other: Meal Dinner Percent of Meal Consumed 25% # Urine Diapers 1 Weight 56.4 kg Patient Weight 12/30/17 23:59 Weight 56.4 kg General appearance: mild distress, thin - Head Head exam: Present: atraumatic - Eye Eye exam: Present: sclera anicteric - Neck Neck exam: Present: full ROM - Respiratory Respiratory exam: Present: CTAB - Cardiovascular Cardiovascular exam: Present: +S1, +S2 - GI/Abdominal GI/Abdominal exam: Present: normal bowel sounds, soft - Extremities Exam Extremities exam: Present: normal inspection - Neurological Exam Neurological exam: Present: alert, CN II-XII intact, oriented X3, no focal deficits Oncology: Obj Data - Labs CBC & Chem 7: 12/30/17 03:30 12/30/17 03:30 Labs: Laboratory Results - last 24 hr 12/30/17 12/30/17 03:30 03:30 WBC 13.0 H RBC 3.35 L Hgb 9.6 L Hct 29.9 L MCV 89.3 MCH 28.7 MCHC 32.1 RDW 15.3 H Plt Count 387 MPV 8.8 L Immature Gran % 2.5 Seg Neutrophils % 89.1 Lymphocytes % 3.8 Monocytes % 4.3 Eosinophils % 0.0 Basophils % 0.3 Neutrophils # 11.6 H Lymphocytes # 0.5 L Monocytes # 0.6 Eosinophils # 0.0 Basophils # 0.0 Sodium 136 Potassium 4.2 Chloride 105 Carbon Dioxide 24 BUN 33 H Creatinine 0.46 L Est GFR ( Amer) > 60 Est GFR (Non-Af Amer) > 60 BUN/Creatinine Ratio 72 H Glucose 170 H Calculated Osmolality 293 Calcium 8.5 L Total Bilirubin 0.5 AST 11 L ALT 12 Alkaline Phosphatase 122 H Serum Total Protein 5.7 L Albumin 3.0 L Globulin 2.7 Albumin/Globulin Ratio 1.1 - Impressions Impressions Chest X-Ray 12/29/17 08:32 IMPRESSION: Complete opacification of the left hemithorax. D/ / 12/29/2017 13:19:09 Luc oRjo MD / [facility] Interpreting Provider: Luc Rojo MD Abdomen/Pelvis CT 12/30/17 23:50 IMPRESSION: Interval development of small right pleural effusion and increased dependent right lower lobe airspace disease, likely atelectasis. Bilateral scratch the bibasilar pulmonary nodules measuring up to 1.5 cm in the right. Although findings could be infectious or inflammatory, metastatic disease is a concern, particularly given enlargement of the medial limb of the right adrenal gland which is new since August 2017. Cholelithiasis. Mild intra/extrahepatic biliary ductal dilation. Correlation for downstream bile duct obstruction is recommended. Bilateral nephrolithiasis. Large amount of stool within the proximal colon. D/ / Mariana Beck Cha, MD / Mariana Beck Cha, MD Interpreting Provider: Mariana Beck Cha, MD - ABG Interpretation ABG results: PT/INR, D-dimer PT 13.7 Seconds (9.4-12.1) H 12/24/17 03:24 D-Dimer 1391 ng/mLFEU (0-500) H 12/23/17 09:03 Consult Discharge Plan - Plan Referrals: Shawn Mccoy MD [Primary Care Provider] - Inpatient Charges Provider: Dr. César Christie Follow Up: 82290
[2017-12-30] MEDS: Sennosides/Docusate Sodium TABLET PO SCH ×2 (12:59→20:28)
[2017-12-30] MEDS: Nystatin SUSP 5 ML UD.LIQ PO SCH ×2 (16:35→20:29)
[2017-12-30] MEDS: traZODone 50 MG TABLET PO SCH (20:28)
[2017-12-31] MEDS: GuaiFENesin/Codeine Oral Soln 5 ML UDC PO SCH ×4 (01:32→18:07)
[2017-12-31] MEDS: Levalbuterol Neb 1.25 MG/3 ML IH SCH ×4 (03:35→22:00)
[2017-12-31] MEDS: Ipratropium Neb 0.5 MG NEBULIZER IH SCH ×6 (03:35→22:15)
[2017-12-31 04:50] LABS: Basophils # 0.1 K/mcL (0.0-0.2); Basophils % 0.4 %; Hematocrit 29.6 % (35.3-44.9); Hemoglobin 9.5 g/dL (11.5-15.4); Immature Granulocytes % 3.3 % (0-4); Lymphocytes # 0.8 K/mcL (0.6-4.6); Mean Corpuscular HGB Conc 32.1 g/dL (31.6-35.5); Mean Corpuscular Hemoglobin 28.4 pg (28.0-33.3); Mean Corpuscular Volume 88.6 fL (83.0-100.0); Mean Platelet Volume 8.6 fL (9.4-12.4); Monocytes # 1.1 K/mcL (0.0-1.3); Monocytes % 8.4 %; Neutrophils # 11.1 K/mcL (1.6-8.9); Platelet Count 359 K/mcL (140-400); Red Blood Count 3.34 M/mcL (3.82-4.97); Red Cell Distribution Width 15.2 % (11.5-14.5); Segmented Neutrophils % 81.9 %
[2017-12-31 05:11] LABS: BUN/Creatinine Ratio 73 (6-26); Blood Urea Nitrogen 35 mg/dL (8-23); Calcium 8.6 mg/dL (8.6-10.3); Carbon Dioxide 25 mEq/L (23-29); Chloride 105 mEq/L (98-107); Glucose 147 mg/dL (70-105); Osmolality,Calculated 295 (280-300); Potassium 4.3 mEq/L (3.5-5.1); Sodium 137 mEq/L (136-145); eGFR For Non-African Americans > 60 (> 60)
[2017-12-31] MEDS: *HR* Heparin 5,000 UNIT/ML VIAL SQ SCH ×2 (06:14→18:05)
[2017-12-31] MEDS: MethylPREDNISolone 40 MG/ML VIAL IVP SCH (06:14)
[2017-12-31] MEDS: Nicotine 21 MG PATCH.TD24 TD SCH (10:13)
[2017-12-31] MEDS: Aspirin Enteric Coated 81 MG Tablet PO SCH (10:15)
[2017-12-31] MEDS: Diltiazem CD (24hr) 240 MG CAPSULE PO SCH (10:15)
[2017-12-31] MEDS: Sennosides/Docusate Sodium TABLET PO SCH ×2 (10:16→19:48)
[2017-12-31] MEDS: Venlafaxine XR (24 HR) 150 MG CAP.ER.24H PO SCH (10:16)
[2017-12-31] MEDS: levoFLOXacin 750 MG TABLET PO SCH (10:16)
[2017-12-31] MEDS: Nystatin SUSP 5 ML UD.LIQ PO SCH ×4 (10:20→19:48)
[2017-12-31] MEDS ORDERED: Bisacodyl 10 MG RECTAL SUPPOSITORY RC PRN (13:41)
[2017-12-31] MEDS ORDERED: Milk and Molasses Enema 200 ML RC ONE (13:42)
[2017-12-31] MEDS ORDERED: *HR* LORazepam 2 MG/ML VIAL IVP PRN (14:18)
--- NOTE | 2017-12-31 14:21 | Internal Med Progress Note ---
Hospitalist Progress Note - Encounter Date of Encounter: 12/31/17 Time of Encounter: 12:30 - Subjective Interval History: Ms. Mae is a 62 year old female with PMH of COPD, not on home O2 dependent, anxiety, arthritis, kidney stones, depression, and osteoporosis pt admitted here for acute pneumonia and COPD exacerbation. Still has severe SOB and MORALES. Pt was placed on high flow O2 @ FiO2 65 %.. Pt states she is feeling better today. Denied any CP. Still no BM.. Constipation ++ - Exam Vitals: Temp Pulse Resp BP Pulse Ox 98.0 F 120 18 121/77 90 12/31/17 11:00 12/31/17 11:00 12/31/17 11:05 12/31/17 11:05 12/31/17 11:05 Exam: Gen: Alert, awake, Oriented to time,place and person Chest: Diminished breath sounds B/L, moderate wheezing, No crackles, No rales, Ronchi+ Heart: S1S2+ tachycardia No murmurs Abd: Soft, NT, BS +, No organomegaly Ext: No edema, pulses are palpable, No calf tenderness Neuro : Benign findings Skin: No rash. - Assessment and Plan (1) Acute respiratory failure with hypoxia Current Visit: Yes Status: Acute Assessment and Plan: Cont high flow O2 recommend frequent ICS OOB ot Chair Chest percussion therapy appreciate Pulm recommendations talked to pt's at bed side and explained to them about current care (2) Community acquired pneumonia Current Visit: Yes Status: Acute Assessment and Plan: mostly bacterial Improving WBC slightly elevated. continue deescalating Abx d/c Cefepime cont Levofloxacin # 5/10 for total 10 days course (3) Acute exacerbation of chronic obstructive airways disease Current Visit: Yes Status: Acute Assessment and Plan: Improving Cont high flow O2 Encouraged to use more frequent BiPAP Cont Neb treatment cont tapering steroids (4) Lung cancer Current Visit: Yes Status: Suspected Assessment and Plan: s/p bronchoscopy. AFB, fungal, gram stain - negative biopsy report pending) (5) Hypokalemia Current Visit: Yes Status: Resolved Assessment and Plan: resolved (6) Constipation Current Visit: Yes Status: Acute Assessment and Plan: placed on Miralax, Senna plus and Lactulose still no BM will give Dulolax suppository and Enema - Time Spent with Patient Total time spent is greater than 50% in coordination of care (as documented) at patient's floor/unit and/or counseling patient: Internal Medicine: Result - Labs CBC & Chem 7: 12/31/17 04:10 12/31/17 04:10 Labs: Short CBC 12/31/17 Range/Units 04:10 WBC 13.5 H (4.3-11.1) K/mcL Hgb 9.5 L (11.5-15.4) g/dL Hct 29.6 L (35.3-44.9) % Plt Count 359 (140-400) K/mcL Neutrophils # 11.1 H (1.6-8.9) K/mcL BMP 12/31/17 04:10 Sodium 137 Potassium 4.3 Chloride 105 Carbon Dioxide 25 BUN 35 H Creatinine 0.48 L Glucose 147 H Calcium 8.6 - ABG Interpretation ABG results: PT/INR, D-dimer PT 13.7 Seconds (9.4-12.1) H 12/24/17 03:24 D-Dimer 1391 ng/mLFEU (0-500) H 12/23/17 09:03 Consult Discharge Plan - Plan Referrals: Shawn Mccoy MD [Primary Care Provider] - (2) Community acquired pneumonia Qualifiers: Laterality: left Lung location: unspecified part of lung Qualified Code(s): J18.9 - Pneumonia, unspecified organism (4) Lung cancer Qualifiers: Laterality: unspecified laterality Lung location: unspecified part of lung Qualified Code(s): C34.90 - Malignant neoplasm of unspecified part of unspecified bronchus or lung
[2017-12-31] MEDS: traZODone 50 MG TABLET PO SCH (19:47)
[2018-01-01] MEDS: GuaiFENesin/Codeine Oral Soln 5 ML UDC PO SCH ×4 (03:02→18:34)
[2018-01-01] MEDS: Levalbuterol Neb 1.25 MG/3 ML IH SCH ×4 (03:58→22:22)
[2018-01-01] MEDS: Ipratropium Neb 0.5 MG NEBULIZER IH SCH ×6 (03:58→22:22)
[2018-01-01 05:24] LABS: Basophils # 0.1 K/mcL (0.0-0.2); Basophils % 0.6 %; Hematocrit 31.2 % (35.3-44.9); Immature Granulocytes % 4.3 % (0-4); Lymphocytes # 1.2 K/mcL (0.6-4.6); Lymphocytes % 8.9 %; Mean Corpuscular HGB Conc 32.1 g/dL (31.6-35.5); Mean Corpuscular Hemoglobin 28.6 pg (28.0-33.3); Mean Corpuscular Volume 89.1 fL (83.0-100.0); Mean Platelet Volume 8.5 fL (9.4-12.4); Monocytes # 1.5 K/mcL (0.0-1.3); Monocytes % 11.2 %; Neutrophils # 10.2 K/mcL (1.6-8.9); Nucleated Red Blood Cells 0.2 /100 WBC (0); Platelet Count 329 K/mcL (140-400); Red Cell Distribution Width 15.5 % (11.5-14.5)
[2018-01-01] MEDS: *HR* Heparin 5,000 UNIT/ML VIAL SQ SCH ×2 (06:11→18:34)
[2018-01-01] MEDS: Aspirin Enteric Coated 81 MG Tablet PO SCH (10:03)
[2018-01-01] MEDS: Venlafaxine XR (24 HR) 150 MG CAP.ER.24H PO SCH (10:03)
[2018-01-01] MEDS: Diltiazem CD (24hr) 240 MG CAPSULE PO SCH (10:04)
[2018-01-01] MEDS: levoFLOXacin 750 MG TABLET PO SCH (10:04)
[2018-01-01] MEDS: Sennosides/Docusate Sodium TABLET PO SCH ×2 (10:04→22:43)
[2018-01-01] MEDS: predniSONE 20 MG TABLET PO SCH (10:06)
--- NOTE | 2018-01-01 10:06 | Internal Med Progress Note ---
Addendum entered and electronically signed by Delroy Cooney 01/01/18 11:52: Add tacycardia to A/P -pt HR 97 this morning, highest HR in last 24hrs was 120bpm -continue cardizem 240mg PO daily Original Note: <ErosDelroy Correa - Last Filed: 01/01/18 10:02> Hospitalist Progress Note - Encounter Date of Encounter: 01/01/18 Time of Encounter: 10:02 - Subjective Interval History: Ms. Mae is a 62 year old female with PMH of COPD, anxiety, arthritis, kidney stones, depression, and osteoporosis. -last week has had URI symptoms and cough. Cough has been nonproductive and she states that she has been feeling very weak. -The pt states she has a hx of COPD and that she has been having increasing SOB from her baseline. -She doesn't take nebulizers as much as she should, according to her. -pt denies home oxygen use In the ER the pt has a (-) troponin, lactic acid of 0.8. D dimer is 1391 Stat pulmonolog consult placed -Dr Paige spoken to and pt is s/p bronchoscopy 9.2.18 Pt is seen at bedside today, she has no acute complaints. Still has SOB and dyspnea, can hardly get out of bed. Pt denies chest pain, abd pain. She is on high flow NC at 14L. She states she is feeling better. - Exam Vitals: Temp Pulse Resp BP Pulse Ox 98.4 F 97 21 111/66 94 01/01/18 07:32 01/01/18 07:32 01/01/18 07:32 01/01/18 07:32 01/01/18 07:32 Exam: Gen: Alert, awake, Oriented to time,place and person Chest: Diminished breath sounds B/L, expiratory wheeze Heart: S1S2+ tachycardia No murmurs Abd: Soft, NT, BS +, No organomegaly Ext: No edema Skin: No rash. - Assessment and Plan (1) Community acquired pneumonia Current Visit: Yes Status: Acute Assessment and Plan: Likely bacterial in origin -WBC coutn today is 13.5, most likel seconday to glucocorticoids CXR on 12/29/17 showed complete opacification of the left hemithorax Acid fast stain negative, respiratory culture negative Legionella and s pneumo antigens negative Blood cultures negative Plan: -abx deescalated, cefepime discontinued -on levaquin day 10/01 as per respiratory (2) Acute exacerbation of chronic obstructive airways disease Current Visit: Yes Status: Acute Assessment and Plan: Pt was switched to high flow NC and is on 14L -states she is still SOB Plan: -use BIPAP if compliant -continue Atrovent and Xopendex -Cont high flow O2 -encourage incentive spirometry -IV steroids d/c yesterday and changed to 40mg PO prednisone, started today (3) Lung cancer Current Visit: Yes Status: Suspected Assessment and Plan: Pt is s/p bronchoscopy completed on 12/24/17 --suspicious left lower lobe lesion , friable mucosa in left upper lobe/left lower lobe -biopsies taken CT chest showed - no PE; masslike consolidation right hemithorax maybe neoplasm ; possible adrenal and bony mets -no evidence of acute pulmonary emobli AFB, fungal, gram stain - negative Plan: -bx report pending -heme onc consulted -palliative consulted (4) Hypokalemia Current Visit: Yes Status: Resolved Assessment and Plan: resolved -potassium toda 4.3 (5) Acute respiratory failure with hypoxia Current Visit: Yes Status: Acute Assessment and Plan: Currently 94% on 32.9 high flow O2 -pt continues to remain SOB and dypsnea on exertion Plan: -Cont high flow O2 -incentive spirometry -Chest percussion therapy -Atrovent and Xopenex (6) Constipation Current Visit: Yes Status: Acute Assessment and Plan: C/O constipation over weekend -had BM today at around 4am Plan: -miralax, senna plus, lactulose was given -ducolax suppository and enema given DVT Prophylaxis: heparin sq - Time Spent with Patient Total time spent is greater than 50% in coordination of care (as documented) at patient's floor/unit and/or counseling patient: less than 15 minutes Plan of Care Discussed with: patient Internal Medicine: Result - Labs CBC & Chem 7: 01/01/18 05:03 12/31/17 04:10 Labs: Short CBC 01/01/18 Range/Units 05:03 WBC 13.5 H (4.3-11.1) K/mcL Hgb 10.0 L (11.5-15.4) g/dL Hct 31.2 L (35.3-44.9) % Plt Count 329 (140-400) K/mcL Neutrophils # 10.2 H (1.6-8.9) K/mcL - ABG Interpretation ABG results: PT/INR, D-dimer PT 13.7 Seconds (9.4-12.1) H 12/24/17 03:24 D-Dimer 1391 ng/mLFEU (0-500) H 12/23/17 09:03 Consult Discharge Plan - Plan Referrals: Shawn Mccoy MD [Primary Care Provider] - <Brian Fung - Last Filed: 01/01/18 17:13> Hospitalist Progress Note - Encounter Date of Encounter: 01/01/18 - Exam Vitals: Temp Pulse Resp BP Pulse Ox 98.3 F 109 20 123/74 92 01/01/18 12:05 01/01/18 12:05 01/01/18 15:56 01/01/18 12:05 01/01/18 15:56 - Assessment and Plan (1) Acute respiratory failure with hypoxia Current Visit: Yes Status: Acute (2) Community acquired pneumonia Current Visit: Yes Status: Acute (3) Acute exacerbation of chronic obstructive airways disease Current Visit: Yes Status: Acute (4) Lung cancer Current Visit: Yes Status: Suspected (5) Hypokalemia Current Visit: Yes Status: Resolved (6) Constipation Current Visit: Yes Status: Acute - Time Spent with Patient Total time spent is greater than 50% in coordination of care (as documented) at patient's floor/unit and/or counseling patient: Internal Medicine: Result - Labs CBC & Chem 7: 01/01/18 05:03 12/31/17 04:10 Labs: Short CBC 01/01/18 Range/Units 05:03 WBC 13.5 H (4.3-11.1) K/mcL Hgb 10.0 L (11.5-15.4) g/dL Hct 31.2 L (35.3-44.9) % Plt Count 329 (140-400) K/mcL Neutrophils # 10.2 H (1.6-8.9) K/mcL - ABG Interpretation ABG results: PT/INR, D-dimer PT 13.7 Seconds (9.4-12.1) H 12/24/17 03:24 D-Dimer 1391 ng/mLFEU (0-500) H 12/23/17 09:03 - Attending Attestation I examined this patient and my medical decision-making was reviewed with the Resident Physician Dr. Cooney. I agree with the documented findings, disposition and treatment plan as described except to the extent set forth below. Ms. Mae is a 62 year old female with PMH of COPD, not on home O2 dependent, anxiety, arthritis, kidney stones, depression, and osteoporosis pt admitted here for acute pneumonia and COPD exacerbation. pt is currently on 8 lit high flow NC O2. denied any CP. Still has moderate to severe SOB and MORALES. Gen: moderate resp distress..Able to finish full sentence with out pause Chest: Diminished BS b/l, severe wheezing, ronchi+ a/p 1. Acute hypoxic resp failure 2. Acute COPD exacerbation 3. Acute pneumonia 4. Left lung mass still in severe resp distress and on 8 lit O2.. Improving cont wean her of the O2 as she tolerates PT / OT eval ordered Duoneb and broad spec abx s/p bronch-- Path pending Pulm and Heme Onc on board Will encourage to use BiPAP more frequently Ativan PRN 5. Sinus tachycardia d/c Duoneb Xopenox and Atrovent Neb Q6hr cont Cardizem CD 240mg 6. Constipation Improved <Delroy Cooney S - Last Filed: 01/01/18 10:02> (1) Community acquired pneumonia Qualifiers: Laterality: left Lung location: unspecified part of lung Qualified Code(s): J18.9 - Pneumonia, unspecified organism <Brian Fung - Last Filed: 01/01/18 17:13> (2) Community acquired pneumonia Qualifiers: Laterality: left Lung location: unspecified part of lung Qualified Code(s): J18.9 - Pneumonia, unspecified organism (4) Lung cancer Qualifiers: Laterality: unspecified laterality Lung location: unspecified part of lung Qualified Code(s): C34.90 - Malignant neoplasm of unspecified part of unspecified bronchus or lung
[2018-01-01] MEDS: Nicotine 21 MG PATCH.TD24 TD SCH (10:07)
[2018-01-01] MEDS: Nystatin SUSP 5 ML UD.LIQ PO SCH ×4 (10:07→22:43)
--- NOTE | 2018-01-01 16:00 | Pulmonology Progress Note ---
Date of Encounter: 01/01/18 Time of Encounter: 15:58 Assessment and Plan (1) Acute and chronic respiratory failure with hypoxia Current Visit: Yes Status: Acute Continue high flow oxygen to keep saturation greater than 89% plan to wean to high flow nasal cannula (15L via wall) I reinforced the need for aggressive bronchopulmonary toileting including incentive spirometry and out of bed to chair this is crucial for lung recruitment to mitigate the effects of atelectasis and VQ mismatch (2) Community acquired pneumonia Current Visit: Yes Status: Acute Continue antimicrobials for a total of 7-10 days and clinical course I suspect monotherapy with respiratory fluoroquinolone would be sufficient coverage Qualifiers: Laterality: left Lung location: unspecified part of lung Qualified Code(s ): J18.9 - Pneumonia, unspecified organism (3) Acute exacerbation of chronic obstructive airways disease Current Visit: Yes Status: Acute Continue steroids and bronchodilators (4) Lesion of left lung Current Visit: Yes Status: Acute This is concerning for primary lung malignancy pending final pathology interpretation that was sent to outside facility ([facility]) hopefully should be available early part of this upcoming week (5) Goals of care, counseling/discussion Current Visit: Yes Status: Acute Palliative care following think the primary cart driver of finalization of goals of care would be a diagnosis of malignancy which is pending Subjective Principal diagnosis: COPD exacerbation Interval history: Ms. Mae states that her breathing seems to be getting better slowly. She was able to get out of the bed to the chair yesterday a couple of times. He should do more that he return for session remains on high flow oxygen desaturation of been in the mid to high 90s I suspect that with aggressive weaning this could come down markedly Objective PUL Vital signs: Last Vital Signs Temp 98.3 F 01/01/18 12:05 Pulse 109 01/01/18 12:05 Resp 20 01/01/18 15:56 BP 123/74 01/01/18 12:05 Pulse Ox 92 01/01/18 15:56 General appearance: no acute distress, other (Frail appearing) Eyes: nonicteric ENT: oropharynx moist Effort: normal Auscultation: bilateral: diminished breath sounds Cardiovascular: regular rate and rhythm Gastrointestinal: normoactive bowel sounds Extremities: no edema Musculoskeletal: no deformities normal mental status mood appropriate Results - Laboratory Findings CBC and BMP: 01/01/18 05:03 12/31/17 04:10 PT/INR, D-dimer PT 13.7 Seconds (9.4-12.1) H 12/24/17 03:24 D-Dimer 1391 ng/mLFEU (0-500) H 12/23/17 09:03 Abnormal lab findings: Abnormal lab results WBC 13.5 K/mcL (4.3-11.1) H 01/01/18 05:03 RBC 3.50 M/mcL (3.82-4.97) L 01/01/18 05:03 Hgb 10.0 g/dL (11.5-15.4) L 01/01/18 05:03 Hct 31.2 % (35.3-44.9) L 01/01/18 05:03 RDW 15.5 % (11.5-14.5) H 01/01/18 05:03 MPV 8.5 fL (9.4-12.4) L 01/01/18 05:03 Immature Gran % 4.3 % (0-4) H 01/01/18 05:03 Neutrophils # 10.2 K/mcL (1.6-8.9) H 01/01/18 05:03 Monocytes # 1.5 K/mcL (0.0-1.3) H 01/01/18 05:03 Nucleated RBCs/100 WBC 0.2 /100 WBC (0) H 01/01/18 05:03 PT 13.7 Seconds (9.4-12.1) H 12/24/17 03:24 D-Dimer 1391 ng/mLFEU (0-500) H 12/23/17 09:03 BUN 35 mg/dL (8-23) H 12/31/17 04:10 Creatinine 0.48 mg/dL (0.60-1.20) L 12/31/17 04:10 BUN/Creatinine Ratio 73 (6-26) H 12/31/17 04:10 Glucose 147 mg/dL (70-105) H 12/31/17 04:10 AST 11 Units/L (13-39) L 12/30/17 03:30 Alkaline Phosphatase 122 Units/L (34-104) H 12/30/17 03:30 Serum Total Protein 5.7 g/dL (6.4-8.9) L 12/30/17 03:30 Albumin 3.0 g/dL (3.5-5.7) L 12/30/17 03:30 Fluid Appearance Hazy (Clear) A 12/24/17 09:26 Vancomycin Trough 12 mcg/mL (5-10) H 12/27/17 02:45 Mycoplasma pneumon IgG 0.15 U/L (<=0.09) H 12/23/17 15:07 - Clinical Findings Intake & Output: Intake & Output 12/31/17 01/01/18 01/01/18 23:59 07:59 15:59 Intake Total 660 / 660 Output Total 0 / 0 0 / 0 500 / 500 Balance 0 / 0 0 / 0 160 / 160 Weight 48 kg Consult Discharge Plan - Plan Referrals: Shawn Mccoy MD [Primary Care Provider] -
[2018-01-01] MEDS: traZODone 50 MG TABLET PO SCH (22:42)
[2018-01-02] MEDS: Ipratropium Neb 0.5 MG NEBULIZER IH SCH ×6 (00:35→22:12)
[2018-01-02] MEDS: Levalbuterol Neb 1.25 MG/3 ML IH SCH ×4 (03:42→22:12)
[2018-01-02 04:17] LABS: Basophils # 0.1 K/mcL (0.0-0.2); Basophils % 0.7 %; Eosinophils % 0.1 %; Hematocrit 32.1 % (35.3-44.9); Hemoglobin 10.2 g/dL (11.5-15.4); Immature Granulocytes % 4.6 % (0-4); Lymphocytes # 1.3 K/mcL (0.6-4.6); Lymphocytes % 8.4 %; Mean Corpuscular HGB Conc 31.8 g/dL (31.6-35.5); Mean Corpuscular Hemoglobin 28.3 pg (28.0-33.3); Mean Corpuscular Volume 88.9 fL (83.0-100.0); Mean Platelet Volume 8.6 fL (9.4-12.4); Monocytes # 1.3 K/mcL (0.0-1.3); Monocytes % 8.7 %; Neutrophils # 11.9 K/mcL (1.6-8.9); Platelet Count 315 K/mcL (140-400); Red Blood Count 3.61 M/mcL (3.82-4.97); Red Cell Distribution Width 15.3 % (11.5-14.5); Segmented Neutrophils % 77.5 %
[2018-01-02 04:37] LABS: Alanine Aminotransferase 22 Units/L (7-52); Albumin/Globulin Ratio 1.2 (1.1-2.2); Alkaline Phosphatase 123 Units/L (34-104); Aspartate Amino Transferase 18 Units/L (13-39); BUN/Creatinine Ratio 54 (6-26); Bilirubin,Total 0.5 mg/dL (0.3-1.0); Blood Urea Nitrogen 25 mg/dL (8-23); Calcium 8.4 mg/dL (8.6-10.3); Carbon Dioxide 26 mEq/L (23-29); Chloride 103 mEq/L (98-107); Globulin 2.5 g/dL (2.4-3.5); Glucose 92 mg/dL (70-105); Osmolality,Calculated 286 (280-300); Potassium 4.1 mEq/L (3.5-5.1); Sodium 136 mEq/L (136-145); Total Protein 5.5 g/dL (6.4-8.9); eGFR For Non-African Americans > 60 (> 60)
[2018-01-02] MEDS: *HR* Heparin 5,000 UNIT/ML VIAL SQ SCH ×2 (06:13→16:52)
[2018-01-02] MEDS: GuaiFENesin/Codeine Oral Soln 5 ML UDC PO SCH ×5 (06:13→23:23)
--- NOTE | 2018-01-02 08:58 | Physician Discharge Referral ---
Home Health/Hosp Referral Info Transfer to: Hospice Provider in Charge Post Discharge: Academic Manager - Diagnosis (1) Community acquired pneumonia Priority: Primary Status: Acute (2) Acute exacerbation of chronic obstructive airways disease Priority: Secondary Status: Acute (3) Lung cancer Priority: Secondary Status: Suspected (4) Hypokalemia Priority: Secondary Status: Resolved (5) Acute respiratory failure with hypoxia Priority: Secondary Status: Acute (6) Constipation Priority: Secondary Status: Acute - Respiratory Orders Oxygen / L per min Smoking Cessation: Smoking cessation has been advised. For more information, call the [place] Tobacco Quit Line at 4-020-ZQBA-NOW. - Diet/Nutrition Diet/Nutrition Orders: Regular - Activity Activity Orders: Up ad tejinder - Services Needed Following services are medically necessary services: Home Health Aide - Transfer Medications Prescriptions: Promethazine [Phenergan] 12.5 mg PO Q6HR PRN 30 Days #30 tablet PRN Reason: Nausea And Vomiting diazePAM [Valium] 3 mg PO TID PRN 30 Days #90 tablet PRN Reason: Anxiety Diltiazem CD (24hr) [Cardizem CD] 240 mg PO DAILY 30 Days #30 cap.er.24h levoFLOXacin [Levaquin] 750 mg PO DAILY 3 Days #3 tablet Nicotine Patch [Nicoderm] 21 mg TD DAILY 30 Days #30 patch.td24 Polyethylene Glycol 3350 [MiraLAX] 17 gm PO DAILY 30 Days #30 powd.pack PredniSONE [Lyndsay] 5 mg PO DAILY 8 Days #6 tablet. PredniSONE [Deltasone] 20 mg PO DAILY 12 Days #14 tablet Sennosides/Docusate Sodium [Senna Plus] 1 each PO BID 30 Days #30 tablet Home Medications: Albuterol Sulfate [Ventolin Hfa] 2 puff IH Q4H PRN 12/23/17 [History] Amitriptyline HCl 150 mg PO HS 12/23/17 [History] Aspirin [Lo-Dose Aspirin EC] 81 mg PO DAILY 12/23/17 [History] Biotin 1 mg PO DAILY 12/23/17 [History] Budesonide/Formoterol 80/4.5 [Symbicort 80/4.5] 2 puff IH BID 12/23/17 [History ] Meloxicam 7.5 mg PO DAILY 12/23/17 [History] Multivitamin [One Daily Essential] 1 tab PO DAILY 12/23/17 [History] Multivits Min/Iron/FA/Herb#186 [Hair, Skin and Nails Caplet] 1 tab PO DAILY 05/11 [History] Omeprazole [PriLOSEC] 20 mg PO DAILY 12/23/17 [History] Prazosin [Minipress] 1 mg PO HS 12/23/17 [History] Tizanidine HCl 2 mg PO Q8H PRN 12/23/17 [History] Trazodone HCl 100 mg PO HS 12/23/17 [History] Turmeric Root Extract [Turmeric] 500 mg PO DAILY 12/23/17 [History] Venlafaxine HCl [Venlafaxine HCl ER] 150 mg PO DAILY 12/23/17 [History] Vitamin B Complex [B Complex] 1 tab PO DAILY 12/23/17 [History] Diltiazem CD (24hr) [Cardizem CD] 240 mg PO DAILY 30 Days #30 cap.er.24h [Rx] Nicotine Patch [Nicoderm] 21 mg TD DAILY 30 Days #30 patch.td24 01/02/18 [Rx] Polyethylene Glycol 3350 [MiraLAX] 17 gm PO DAILY 30 Days #30 powd.pack [Rx] PredniSONE [Deltasone] 20 mg PO DAILY 12 Days #14 tablet 01/02/18 [Rx] PredniSONE [Lyndsay] 5 mg PO DAILY 8 Days #6 tablet.dr 01/02/18 [Rx] Promethazine [Phenergan] 12.5 mg PO Q6HR PRN 30 Days #30 tablet 01/02/18 [Rx] Sennosides/Docusate Sodium [Senna Plus] 1 each PO BID 30 Days #30 tablet [Rx] diazePAM [Valium] 3 mg PO TID PRN 30 Days #90 tablet 01/02/18 [Rx] levoFLOXacin [Levaquin] 750 mg PO DAILY 3 Days #3 tablet 01/02/18 [Rx] Allergies/Adverse Reactions: 3 Allergy/AdvReac Type Severity Reaction Status Date / Time No Known Allergies Allergy Verified 12/23/17 13:19 Certification: Further, I certify that my clinical findings support that this patient is homebound (i.e. absences from home require considerable and taxing effort and are for medical reasons or rastafarian services or infrequently or short duration when for other reasons) because: Homebound Reason: Patient requires assistance of a person or device to safely leave home, Severity of cardiac or pulmonary status limits activity tolerance Attestation: My signature below is to certify that this patient is under my care and that I, or nurse practitioner, or a physician's yard assistant working with me, has a face-to -face encounter with this patient.
--- NOTE | 2018-01-02 09:02 | Discharge Summary ---
<Delroy Cooney S - Last Filed: 01/02/18 11:46> - NOTES TO OUTPATIENT PROVIDER Notes to Outpatient Provider: Follow up on constipation. Follow up on prednisone taper, I gave her a prolonged taper following high dose steroid treatment in the hospital. Follow up on anxiety and pain levels. Orders not resulted at time of discharge: Pending orders 12/24/17 09:26 AFB Culture, Respiratory [TB] Routine AFB Smear [TB] Routine Fungal Culture [MYC] Routine 12/24/17 09:31 Cytology [PTH] Routine 12/24/17 09:35 Surgical Pathology [PTH] Routine Date of Encounter: 01/02/18 Time of Encounter: 08:59 - Discharge Diagnosis (1) Community acquired pneumonia Priority: Primary Status: Acute Qualifiers: Laterality: left Lung location: unspecified part of lung Qualified Code(s ): J18.9 - Pneumonia, unspecified organism (2) Acute exacerbation of chronic obstructive airways disease Priority: Secondary Status: Acute (3) Lung cancer Priority: Secondary Status: Suspected (4) Hypokalemia Priority: Secondary Status: Resolved (5) Acute respiratory failure with hypoxia Priority: Secondary Status: Acute (6) Constipation Priority: Secondary Status: Acute Qualifiers: Constipation type: drug induced constipation Qualified Code(s): K59.03 - Drug induced constipation (7) Sepsis Priority: Secondary Status: Resolved Qualifiers: Sepsis type: sepsis due to unspecified organism Qualified Code(s): A41.9 - Sepsis, unspecified organism (8) Hypertension Priority: Secondary Status: Chronic Qualifiers: Hypertension type: essential hypertension Qualified Code(s): I10 - Essential (primary) hypertension Hospital course: Ms. Mae is a 62 year old female w/ PMH of COPD, anxiety, arthritis, kidney stones, depression, and osteoporosis. -she had some URI symptoms and cough. Cough has been nonproductive and she states that she has been feeling very weak. -The pt states she has a hx of COPD and that she has been having increasing SOB from her baseline. -She doesn't take nebulizers as much as she should, according to her. -pt denies home oxygen use In the ER the pt has a (-) troponin, lactic acid of 0.8. D dimer is 1391 CXR on admission showed Near complete opacification of the left hemithorax, likely related to obstructive atelectasis versus pneumonia,. Multiple lung nodules in right hemithorax , possible metastasis CT chest showed on admission showed -no evidence of acute pulmonary emobli -masslike consolidation at the left hilar/parahilar region, may be related to neoplastic process, atelectasis or infection. -Multiple nodular consolidations in the right hemithorax, Had bronchoscopy 12/24/17 --suspicious left lower lobe lesion , friable mucosa in left upper lobe/left lower lobe -biopsies taken -pathology report still pending -Acid fast stain negative, respiratory culture negative Legionella and s pneumo antigens negative CXR on 12/29/17 showed complete opacification of the left hemithorax As per pulmonology, levoquin for 10 days. This was most likely a community acquired pneumonia. Pt will be discharged with 3 more days of treatment -will d/c patient with senna and miralax for constipation -extended presnisone taper. 40 mg PO x 4days, 20mg PO x 4days, 10 mg PO x 4 days , 5mg PO x 4days, then 2.5 mg PO x 4 days -valium for anxiety -pt will need high flow oxygen for home use, SW setting this up -home hospice set up as per palliative -opiods as per palliative Discussed home hospice with pt, she is agreeable to this. Referral for home hospice filled out. Discharge discussed with: patient, nurse Time spent discussing smoking cessation with patient: 3 to 10 minutes - Time Spent with Patient Total time spent providing and/or coordinating discharge services: Less than 30 minutes - Discharge Medications Prescriptions: Promethazine [Phenergan] 12.5 mg PO Q6HR PRN 30 Days #30 tablet PRN Reason: Nausea And Vomiting diazePAM [Valium] 3 mg PO TID PRN 30 Days #90 tablet PRN Reason: Anxiety Diltiazem CD (24hr) [Cardizem CD] 240 mg PO DAILY 30 Days #30 cap.er.24h levoFLOXacin [Levaquin] 750 mg PO DAILY 3 Days #3 tablet Nicotine Patch [Nicoderm] 21 mg TD DAILY 30 Days #30 patch.td24 Polyethylene Glycol 3350 [MiraLAX] 17 gm PO DAILY 30 Days #30 powd.pack PredniSONE [Lyndsay] 5 mg PO DAILY 8 Days #6 tablet. PredniSONE [Deltasone] 20 mg PO DAILY 12 Days #14 tablet Sennosides/Docusate Sodium [Senna Plus] 1 each PO BID 30 Days #30 tablet Home Medications: Albuterol Sulfate [Ventolin Hfa] 2 puff IH Q4H PRN 12/23/17 [History] Amitriptyline HCl 150 mg PO HS 12/23/17 [History] Aspirin [Lo-Dose Aspirin EC] 81 mg PO DAILY 12/23/17 [History] Biotin 1 mg PO DAILY 12/23/17 [History] Budesonide/Formoterol 80/4.5 [Symbicort 80/4.5] 2 puff IH BID 12/23/17 [History ] Meloxicam 7.5 mg PO DAILY 12/23/17 [History] Multivitamin [One Daily Essential] 1 tab PO DAILY 12/23/17 [History] Multivits Min/Iron/FA/Herb#186 [Hair, Skin and Nails Caplet] 1 tab PO DAILY 05/11 [History] Omeprazole [PriLOSEC] 20 mg PO DAILY 12/23/17 [History] Prazosin [Minipress] 1 mg PO HS 12/23/17 [History] Tizanidine HCl 2 mg PO Q8H PRN 12/23/17 [History] Trazodone HCl 100 mg PO HS 12/23/17 [History] Turmeric Root Extract [Turmeric] 500 mg PO DAILY 12/23/17 [History] Venlafaxine HCl [Venlafaxine HCl ER] 150 mg PO DAILY 12/23/17 [History] Vitamin B Complex [B Complex] 1 tab PO DAILY 12/23/17 [History] Diltiazem CD (24hr) [Cardizem CD] 240 mg PO DAILY 30 Days #30 cap.er.24h [Rx] Nicotine Patch [Nicoderm] 21 mg TD DAILY 30 Days #30 patch.td24 01/02/18 [Rx] Polyethylene Glycol 3350 [MiraLAX] 17 gm PO DAILY 30 Days #30 powd.pack [Rx] PredniSONE [Deltasone] 20 mg PO DAILY 12 Days #14 tablet 01/02/18 [Rx] PredniSONE [Lyndsay] 5 mg PO DAILY 8 Days #6 tablet.dr 01/02/18 [Rx] Promethazine [Phenergan] 12.5 mg PO Q6HR PRN 30 Days #30 tablet 01/02/18 [Rx] Sennosides/Docusate Sodium [Senna Plus] 1 each PO BID 30 Days #30 tablet [Rx] diazePAM [Valium] 3 mg PO TID PRN 30 Days #90 tablet 01/02/18 [Rx] levoFLOXacin [Levaquin] 750 mg PO DAILY 3 Days #3 tablet 01/02/18 [Rx] Allergies/Adverse Reactions: 3 Allergy/AdvReac Type Severity Reaction Status Date / Time No Known Allergies Allergy Verified 12/23/17 13:19 Date of admission: 12/23/17 14:47 Primary care physician: Shawn Mccoy Consults: 12/26/17 08:43 Consult to Oncology Hematology [CONS] Routine Consulting Provider: Angie Peralta Reason for Consult: possible metastatic cancer, awaiting bx results Call Completed: Yes 12/28/17 11:13 Consult to Palliative Care [CONS] Routine Comment: Consulting Provider: Palliative Care Elvia Reason for Consult: poor prognosis Call Completed: No 01/01/18 16:06 Consult to Occupational Therapy [CONS] Routine Comment: Evaluate, develop and implement POC Reason for Consult: Rehab vs HH at d/c; possible discharge tomorrow Does patient have active BEDREST order?: No Is patient medically & hemodynamically stable?: Yes Consult to Physical Therapy [CONS] Routine Comment: Evaluate, develop and implement POC Reason for Consult: Rehab vs HH at d/c; possible discharge tomorrow Does patient have active BEDREST order?: No Is patient medically & hemodynamically stable?: Yes 01/01/18 16:11 Consult to Office Machines Teacher [CONS] Routine Reason for SW Consult: Possible rehab at d/c; PT/OT to see pateint still; if rehab, patient's first choice is [facility]. Discharging clinician: Delroy Cooney Anticipated date of discharge: 01/02/18 - Constitutional Vitals: Temp Pulse Resp BP Pulse Ox 98.7 F 112 16 112/69 94 01/02/18 07:41 01/02/18 07:41 01/02/18 07:41 01/02/18 07:41 01/02/18 07:41 Exam: general - nad, aox3, pleasant lungs - decreased breath sounds, crackles, no wheeze, not using accessory mm of breathing cardio - tacycardia, s1s2, clear to auscultation, no MRG abd - NTND, no rebound or guarding, thin and frail skin - intact, no ulcer, no rash extremities - no edema - Patient Status Disposition: Hospice - Home Condition: Fair Functional capacity at discharge: bed bound Overall status at discharge: patient is not back to baseline - Discharge Instructions Follow Up With: Shawn Mccoy MD [Primary Care Provider] - - Diet and Activity Activity: increase activity as tolerated, wear oxygen at all times Diet: regular diet <Daron Ramosul Yessenia - Last Filed: 01/02/18 18:38> Orders not resulted at time of discharge: Pending orders 12/24/17 09:26 AFB Culture, Respiratory [TB] Routine AFB Smear [TB] Routine Fungal Culture [MYC] Routine 12/24/17 09:31 Cytology [PTH] Routine 12/24/17 09:35 Surgical Pathology [PTH] Routine 01/03/18 04:00 Complete Blood Count [HEME] AM 0400 Comprehensive Metabolic Panel AM 0400 Date of Encounter: 01/02/18 - Discharge Diagnosis (1) Community acquired pneumonia Status: Acute Qualifiers: Laterality: left Lung location: unspecified part of lung Qualified Code(s ): J18.9 - Pneumonia, unspecified organism (2) Acute exacerbation of chronic obstructive airways disease Status: Acute (3) Lung cancer Status: Suspected Qualifiers: Laterality: unspecified laterality Lung location: unspecified part of lung Qualified Code(s): C34.90 - Malignant neoplasm of unspecified part of unspecified bronchus or lung (4) Hypokalemia Status: Resolved (5) Acute respiratory failure with hypoxia Status: Acute (6) Constipation Status: Acute Qualifiers: Constipation type: drug induced constipation Qualified Code(s): K59.03 - Drug induced constipation Hospital course: Ms. Mae is a 62 year old female - Time Spent with Patient Total time spent providing and/or coordinating discharge services: Date of admission: 12/23/17 14:47 Primary care physician: Shawn Mccoy Consults: 12/26/17 08:43 Consult to Oncology Hematology [CONS] Routine Consulting Provider: Angie Peralta Reason for Consult: possible metastatic cancer, awaiting bx results Call Completed: Yes 12/28/17 11:13 Consult to Palliative Care [CONS] Routine Comment: Consulting Provider: Palliative Care Elvia Reason for Consult: poor prognosis Call Completed: No 01/01/18 16:06 Consult to Occupational Therapy [CONS] Routine Comment: Evaluate, develop and implement POC Reason for Consult: Rehab vs HH at d/c; possible discharge tomorrow Does patient have active BEDREST order?: No Is patient medically & hemodynamically stable?: Yes Consult to Physical Therapy [CONS] Routine Comment: Evaluate, develop and implement POC Reason for Consult: Rehab vs HH at d/c; possible discharge tomorrow Does patient have active BEDREST order?: No Is patient medically & hemodynamically stable?: Yes 01/01/18 16:11 Consult to Office Machines Teacher [CONS] Routine Reason for SW Consult: Possible rehab at d/c; PT/OT to see pateint still; if rehab, patient's first choice is [facility]. - Constitutional Vitals: Temp Pulse Resp BP Pulse Ox 98.6 F 108 18 106/72 89 01/02/18 16:10 01/02/18 16:10 01/02/18 15:45 01/02/18 16:10 01/02/18 15:45 - Attending Attestation I examined this patient and my medical decision-making was reviewed with the Resident. I agree with the documented findings, disposition and treatment plan as described except to the extent set forth below.
[2018-01-02] MEDS: Sennosides/Docusate Sodium TABLET PO SCH ×2 (09:18→20:53)
[2018-01-02] MEDS: predniSONE 20 MG TABLET PO SCH (09:18)
[2018-01-02] MEDS: Venlafaxine XR (24 HR) 150 MG CAP.ER.24H PO SCH (09:18)
[2018-01-02] MEDS: levoFLOXacin 750 MG TABLET PO SCH (09:18)
[2018-01-02] MEDS: Aspirin Enteric Coated 81 MG Tablet PO SCH (09:18)
[2018-01-02] MEDS: Diltiazem CD (24hr) 240 MG CAPSULE PO SCH (09:18)
[2018-01-02] MEDS: Nystatin SUSP 5 ML UD.LIQ PO SCH ×4 (09:19→20:53)
[2018-01-02] MEDS: Nicotine 21 MG PATCH.TD24 TD SCH (09:23)
--- NOTE | 2018-01-02 11:31 | Palliative Progress Note ---
Date of Encounter: 01/02/18 Time of Encounter: 11:24 - Assessment and plan (1) Goals of care, counseling/discussion Current Visit: Yes Status: Acute Assessment and plan: Discussed with pt about her GOC. Pt states that she wants to go home, and she was told that she was now stable for discharge. She also stated that she would like home hospice. Pt is familiar with home hospice as they cared for her father -in-law. Explained to the philosophy of hospice and the implication that by choosing hospice, she chooses comfort care and no further work up for her newly found lung mass. Patient demonstrated understanding. Patient has not spoken yet with her about this decision, and asked for my help in facilitating the conversation. Patient is hospice appropriate, for presumptive diagnosis of lung cancer, in view of her frailty and the extent of the lesions in her lungs, she has a prognosis of less than 6 months. Referral made to [facility]. (2) Acute exacerbation of chronic obstructive airways disease Current Visit: Yes Status: Acute Assessment and plan: Patient will continue levaquin for 3 more days on Oxygen recommend continue nebulizers will give Roxanol 5 mg prn for SOB (3) Lesion of left lung Current Visit: Yes Status: Acute Assessment and plan: CT revealed hilar lymphadenopathy with L masslike consolidation Concerning for malignancy with lymph node involvement s/p bronchosopy with BAL and endobronchial biopsies on 12/24 Pathology pending Patient does not want any further work up. - Time Spent With Patient Total time spent is greater than 50% in coordination of care (as documented) at patient's floor/unit and/or counseling patient: Greater than 35 minutes - Subjective Interval history: Patient overnight still refusing BiPAP because of feeling of suffocation. At the time of exam, pt was sitting on bed. Denies any pain at this time, SOB is better but present. - Constitutional Vitals: Abnormal lab results WBC 15.4 K/mcL (4.3-11.1) H 01/02/18 03:48 RBC 3.61 M/mcL (3.82-4.97) L 01/02/18 03:48 Hgb 10.2 g/dL (11.5-15.4) L 01/02/18 03:48 Hct 32.1 % (35.3-44.9) L 01/02/18 03:48 RDW 15.3 % (11.5-14.5) H 01/02/18 03:48 MPV 8.6 fL (9.4-12.4) L 01/02/18 03:48 Immature Gran % 4.6 % (0-4) H 01/02/18 03:48 Neutrophils # 11.9 K/mcL (1.6-8.9) H 01/02/18 03:48 Nucleated RBCs/100 WBC 0.2 /100 WBC (0) H 01/01/18 05:03 PT 13.7 Seconds (9.4-12.1) H 12/24/17 03:24 D-Dimer 1391 ng/mLFEU (0-500) H 12/23/17 09:03 BUN 25 mg/dL (8-23) H 01/02/18 03:48 Creatinine 0.46 mg/dL (0.60-1.20) L 01/02/18 03:48 BUN/Creatinine Ratio 54 (6-26) H 01/02/18 03:48 Calcium 8.4 mg/dL (8.6-10.3) L 01/02/18 03:48 Alkaline Phosphatase 123 Units/L (34-104) H 01/02/18 03:48 Serum Total Protein 5.5 g/dL (6.4-8.9) L 01/02/18 03:48 Albumin 3.0 g/dL (3.5-5.7) L 01/02/18 03:48 Fluid Appearance Hazy (Clear) A 12/24/17 09:26 Vancomycin Trough 12 mcg/mL (5-10) H 12/27/17 02:45 Mycoplasma pneumon IgG 0.15 U/L (<=0.09) H 12/23/17 15:07 Exam: Vitals reviewed General appearance: alert, oriented x3, appears comfortable Eyes: nonicteric, left lower eyelid edema EENT: oropharynx moist Neck: supple, no lymphadenopathy, no JVD Chest: decreased breath sounds left >right, mild crackles Cardiovascular: tacycardia, Gastrointestinal: soft, non-tender, non-distended Extremities: no cyanosis, no edema, no clubbing Musculoskeletal: no deformities Neurologic: normal mental status, non-focal exam Psych: mood appropriate, affect normal Palliative Quality Palliative Quality: Screen for Code Status: Yes, Screen for Goals of Care: Yes, Screen for Pain: Yes, If Pain Regimen Started, Initiate Bowel Regimen: NA, Screen for Nausea/Vomitting: Yes Code Status: 12/29/17 09:26 CODE [Resuscitation Status: Active] [RES] Routine Comment: Resuscitation Status: [id number] - Labs CBC & Chem 7: 01/02/18 03:48 01/02/18 03:48 Labs: Laboratory Results - last 24 hr 01/02/18 01/02/18 03:48 03:48 WBC 15.4 H RBC 3.61 L Hgb 10.2 L Hct 32.1 L MCV 88.9 MCH 28.3 MCHC 31.8 RDW 15.3 H Plt Count 315 MPV 8.6 L Immature Gran % 4.6 H Seg Neutrophils % 77.5 Lymphocytes % 8.4 Monocytes % 8.7 Eosinophils % 0.1 Basophils % 0.7 Neutrophils # 11.9 H Lymphocytes # 1.3 Monocytes # 1.3 Eosinophils # 0.0 Basophils # 0.1 Sodium 136 Potassium 4.1 Chloride 103 Carbon Dioxide 26 BUN 25 H Creatinine 0.46 L Est GFR ( Amer) > 60 Est GFR (Non-Af Amer) > 60 BUN/Creatinine Ratio 54 H Glucose 92 Calculated Osmolality 286 Calcium 8.4 L Total Bilirubin 0.5 AST 18 ALT 22 Alkaline Phosphatase 123 H Serum Total Protein 5.5 L Albumin 3.0 L Globulin 2.5 Albumin/Globulin Ratio 1.2 - ABG Interpretation ABG results: PT/INR, D-dimer PT 13.7 Seconds (9.4-12.1) H 12/24/17 03:24 D-Dimer 1391 ng/mLFEU (0-500) H 12/23/17 09:03 Consult Discharge Plan - Plan Referrals: Shawn Mccoy MD [Primary Care Provider] - Prescriptions: Promethazine [Phenergan] 12.5 mg PO Q6HR PRN 30 Days #30 tablet PRN Reason: Nausea And Vomiting diazePAM [Valium] 3 mg PO TID PRN 30 Days #90 tablet PRN Reason: Anxiety Diltiazem CD (24hr) [Cardizem CD] 240 mg PO DAILY 30 Days #30 cap.er.24h levoFLOXacin [Levaquin] 750 mg PO DAILY 3 Days #3 tablet Nicotine Patch [Nicoderm] 21 mg TD DAILY 30 Days #30 patch.td24 Polyethylene Glycol 3350 [MiraLAX] 17 gm PO DAILY 30 Days #30 powd.pack PredniSONE [Lyndsay] 5 mg PO DAILY 8 Days #6 tablet. PredniSONE [Deltasone] 20 mg PO DAILY 12 Days #14 tablet Sennosides/Docusate Sodium [Senna Plus] 1 each PO BID 30 Days #30 tablet
--- NOTE | 2018-01-02 16:14 | Event Note ---
Date of Encounter: 01/02/18 Time of Encounter: 16:00 Discussed with pt what she decided regarding palliative care. She is ok with going home with hospice. She states her kids want to get her a special bed so she isn't ready to go home today, d/c order is cancelled. Pt will go home most likely tomorrow pending high flow oxygen being set up and family getting bed. Spoke with Dr. Glynn as well, she states that she discussed the above with the pt as well and she has decided on going home with hospice and is ok with that decision.
--- NOTE | 2018-01-02 16:15 | Event Note ---
Date of Encounter: 01/02/18 Time of Encounter: 14:30 met with patient, , son and grand-daughter at the bedside. Explained extensively the clinical conditions and trajectory of illness, as well as prognosis. Explained that the prognosis is presumed based on imaging and clinical data, but that pathology is still in process. Family decided to wait for pathology and obtain a final diagnosis and possible options before a decision on hospice. Patient would like to be discharged to home with home care. restaurant and bar manager Keily and primary team updated.
[2018-01-02] MEDS: traZODone 50 MG TABLET PO SCH (20:53)
[2018-01-03] MEDS: Ipratropium Neb 0.5 MG NEBULIZER IH SCH ×6 (04:01→23:00)
[2018-01-03] MEDS: Levalbuterol Neb 1.25 MG/3 ML IH SCH ×4 (04:01→19:22)
[2018-01-03 04:40] LABS: Basophils # 0.1 K/mcL (0.0-0.2); Basophils % 0.6 %; Hematocrit 32.6 % (35.3-44.9); Hemoglobin 10.6 g/dL (11.5-15.4); Immature Granulocytes % 3.6 % (0-4); Lymphocytes % 6.1 %; Mean Corpuscular HGB Conc 32.5 g/dL (31.6-35.5); Mean Corpuscular Hemoglobin 28.8 pg (28.0-33.3); Mean Corpuscular Volume 88.6 fL (83.0-100.0); Mean Platelet Volume 8.7 fL (9.4-12.4); Monocytes # 1.2 K/mcL (0.0-1.3); Monocytes % 7.6 %; Neutrophils # 13.1 K/mcL (1.6-8.9); Platelet Count 305 K/mcL (140-400); Red Blood Count 3.68 M/mcL (3.82-4.97); Red Cell Distribution Width 15.3 % (11.5-14.5); Segmented Neutrophils % 82.1 %
[2018-01-03 04:59] LABS: Alanine Aminotransferase 20 Units/L (7-52); Albumin 3.1 g/dL (3.5-5.7); Albumin/Globulin Ratio 1.1 (1.1-2.2); Alkaline Phosphatase 132 Units/L (34-104); Aspartate Amino Transferase 14 Units/L (13-39); BUN/Creatinine Ratio 61 (6-26); Bilirubin,Total 0.5 mg/dL (0.3-1.0); Blood Urea Nitrogen 25 mg/dL (8-23); Calcium 8.8 mg/dL (8.6-10.3); Carbon Dioxide 25 mEq/L (23-29); Chloride 102 mEq/L (98-107); Globulin 2.7 g/dL (2.4-3.5); Glucose 119 mg/dL (70-105); Osmolality,Calculated 288 (280-300); Potassium 3.9 mEq/L (3.5-5.1); Sodium 136 mEq/L (136-145); Total Protein 5.8 g/dL (6.4-8.9); eGFR For Non-African Americans > 60 (> 60)
[2018-01-03] MEDS: GuaiFENesin/Codeine Oral Soln 5 ML UDC PO SCH ×4 (05:22→23:45)
[2018-01-03] MEDS: *HR* Heparin 5,000 UNIT/ML VIAL SQ SCH ×2 (05:22→17:23)
[2018-01-03] MEDS: predniSONE 20 MG TABLET PO SCH (08:54)
[2018-01-03] MEDS: Sennosides/Docusate Sodium TABLET PO SCH ×2 (08:54→20:06)
[2018-01-03] MEDS: Venlafaxine XR (24 HR) 150 MG CAP.ER.24H PO SCH (08:54)
[2018-01-03] MEDS: Nicotine 21 MG PATCH.TD24 TD SCH (08:55)
[2018-01-03] MEDS: Aspirin Enteric Coated 81 MG Tablet PO SCH (08:55)
[2018-01-03] MEDS: Nystatin SUSP 5 ML UD.LIQ PO SCH ×4 (08:55→20:06)
[2018-01-03] MEDS: levoFLOXacin 750 MG TABLET PO SCH (08:55)
[2018-01-03] MEDS: Diltiazem CD (24hr) 240 MG CAPSULE PO SCH (08:55)
--- NOTE | 2018-01-03 09:15 | Internal Med Progress Note ---
<ErosDelroy S - Last Filed: 01/03/18 11:20> Hospitalist Progress Note - Encounter Date of Encounter: 01/03/18 Time of Encounter: 09:13 - Subjective Interval History: Ms. Mae is a 62 year old female with PMH of COPD, anxiety, arthritis, kidney stones, depression, and osteoporosis. -last week has had URI symptoms and cough. Cough has been nonproductive and she states that she has been feeling very weak. -The pt states she has a hx of COPD and that she has been having increasing SOB from her baseline. -She doesn't take nebulizers as much as she should, according to her. -pt denies home oxygen use In the ER the pt has a (-) troponin, lactic acid of 0.8. D dimer is 1391 Stat pulmonolog consult placed -Dr Paige spoken to and pt is s/p bronchoscopy 9.2.18 Pt continues to change her mind about hospice vs home health. Social work is working on getting her oxygen set up at home, possibly trying to get a bed depending on decision regarding hospice. I have talked with Dr. Glynn and as of the last time we spoke pt wanted hopsice, however, event note states that the pt wants home health. Pt told myself and nurse this AM that she wanted hospice. -pt had PTOT evaluation and desat to 70's when sat to side of the bed, not stable for discharge -nurse will do a walk test with pt today to see if she desats again - Exam Vitals: Temp Pulse Resp BP Pulse Ox 97.8 F 108 20 107/66 93 01/03/18 07:18 01/03/18 07:18 01/03/18 07:28 01/03/18 07:18 01/03/18 07:28 Exam: general - nad, aox3, pleasant lungs - decreased breath sounds, crackles, no wheeze, not using accessory mm of breathing cardio - tacycardia, s1s2, clear to auscultation, no MRG abd - NTND, no rebound or guarding, thin and frail skin - intact, no ulcer, no rash extremities - no edema - Assessment and Plan (1) Community acquired pneumonia Current Visit: Yes Status: Acute Assessment and Plan: Likely bacterial in origin -WBC coutn today is 15.9, most likel seconday to glucocorticoids CXR on 12/29/17 showed complete opacification of the left hemithorax Acid fast stain negative, respiratory culture negative Legionella and s pneumo antigens negative Blood cultures negative Plan: -abx deescalated, cefepime discontinued -on levaquin day 10/31 as per respiratory (2) Acute exacerbation of chronic obstructive airways disease Current Visit: Yes Status: Acute Assessment and Plan: Pt was switched to high flow NC and is on 5L -states she is still SOB Pt desat to 70's when PTOT came to see her and sat to side of the bed. The pt will be having a walk test with nursing later. Plan: -use BIPAP if compliant -continue Atrovent and Xopendex -Cont high flow O2 -encourage incentive spirometry -IV steroids d/c yesterday and changed to 40mg PO prednisone -will d/c pt on a prolonged taper as per d/c instructions (3) Lung cancer Current Visit: Yes Status: Suspected Assessment and Plan: Pt is s/p bronchoscopy completed on 12/24/17 --suspicious left lower lobe lesion , friable mucosa in left upper lobe/left lower lobe -biopsies taken CT chest showed - no PE; masslike consolidation right hemithorax maybe neoplasm ; possible adrenal and bony mets -no evidence of acute pulmonary emobli AFB, fungal, gram stain - negative Pt continues to change her mind about hospice vs home health. Social work is working on getting her oxygen set up at home, possibly trying to get a bed depending on decision regarding hospice. I have talked with Dr. Glynn and as of the last time we spoke pt wanted hospice, however, event note states that the pt wants home health. Pt told myself and nurse this AM that she wanted hospice. Plan: -bx report pending -heme onc consulted -palliative consulted (4) Hypokalemia Current Visit: Yes Status: Resolved Assessment and Plan: resolved -potassium today 3.9 (5) Acute respiratory failure with hypoxia Current Visit: Yes Status: Acute Assessment and Plan: Currently 90% on 5L high flow oxygen -pt continues to remain SOB and dypsnea on exertion -pt had PTOT evaluation and desat to 70's when sat to side of the bed, not stable for discharge -nurse will do a walk test with pt today to see if she desats again Plan: -Cont high flow O2 -incentive spirometry -Chest percussion therapy -Atrovent and Xopenex (6) Constipation Current Visit: Yes Status: Acute Assessment and Plan: C/O constipation over weekend -had BM on 12/31/17 Plan: -miralax, senna plus, lactulose was given -ducolax suppository and enema given -continue stool softeners (7) Severe muscle deconditioning Current Visit: Yes Status: Acute Assessment and Plan: Pt becoming very weak -PTOT consulted and when pt sits up to the side of the bed she is desat to 70's -pt has lost some weight since admission -check prealbumin -encourage ensure TID DVT Prophylaxis: sq heparin - Time Spent with Patient Total time spent is greater than 50% in coordination of care (as documented) at patient's floor/unit and/or counseling patient: less than 15 minutes Plan of Care Discussed with: patient Internal Medicine: Result - Labs CBC & Chem 7: 01/03/18 04:05 01/03/18 04:05 Labs: Short CBC 01/03/18 Range/Units 04:05 WBC 15.9 H (4.3-11.1) K/mcL Hgb 10.6 L (11.5-15.4) g/dL Hct 32.6 L (35.3-44.9) % Plt Count 305 (140-400) K/mcL Neutrophils # 13.1 H (1.6-8.9) K/mcL BMP 01/03/18 04:05 Sodium 136 Potassium 3.9 Chloride 102 Carbon Dioxide 25 BUN 25 H Creatinine 0.41 L Glucose 119 H Calcium 8.8 Liver Function 01/03/18 Range/Units 04:05 Total Bilirubin 0.5 (0.3-1.0) mg/dL AST 14 (13-39) Units/L ALT 20 (7-52) Units/L Alkaline Phosphatase 132 H (34-104) Units/L Albumin 3.1 L (3.5-5.7) g/dL - ABG Interpretation ABG results: PT/INR, D-dimer PT 13.7 Seconds (9.4-12.1) H 12/24/17 03:24 D-Dimer 1391 ng/mLFEU (0-500) H 12/23/17 09:03 Consult Discharge Plan - Plan Referrals: Hortensia Burnett, TECHNICAL ADJUSTER [Advanced Practice Nurse] - 01/08/18 3:00 pm (please arrive 20 minutes early to fill out paper work take photo id and insurance card with you) Prescriptions: Promethazine [Phenergan] 12.5 mg PO Q6HR PRN 30 Days #30 tablet PRN Reason: Nausea And Vomiting diazePAM [Valium] 3 mg PO TID PRN 30 Days #90 tablet PRN Reason: Anxiety Diltiazem CD (24hr) [Cardizem CD] 240 mg PO DAILY 30 Days #30 cap.er.24h levoFLOXacin [Levaquin] 750 mg PO DAILY 3 Days #3 tablet Nicotine Patch [Nicoderm] 21 mg TD DAILY 30 Days #30 patch.td24 Polyethylene Glycol 3350 [MiraLAX] 17 gm PO DAILY 30 Days #30 powd.pack PredniSONE [Lyndsay] 5 mg PO DAILY 8 Days #6 tablet. PredniSONE [Deltasone] 20 mg PO DAILY 12 Days #14 tablet Sennosides/Docusate Sodium [Senna Plus] 1 each PO BID 30 Days #30 tablet <Madiha Ramos - Last Filed: 01/03/18 18:07> Hospitalist Progress Note - Encounter Date of Encounter: 01/03/18 - Exam Vitals: Temp Pulse Resp BP Pulse Ox 98.2 F 104 21 109/70 90 01/03/18 15:45 01/03/18 15:45 01/03/18 15:45 01/03/18 15:45 01/03/18 15:45 - Assessment and Plan (1) Community acquired pneumonia Current Visit: Yes Status: Acute (2) Acute exacerbation of chronic obstructive airways disease Current Visit: Yes Status: Acute (3) Lung cancer Current Visit: Yes Status: Suspected (4) Hypokalemia Current Visit: Yes Status: Resolved (5) Acute respiratory failure with hypoxia Current Visit: Yes Status: Acute (6) Constipation Current Visit: Yes Status: Acute (7) Severe muscle deconditioning Current Visit: Yes Status: Acute - Time Spent with Patient Total time spent is greater than 50% in coordination of care (as documented) at patient's floor/unit and/or counseling patient: Internal Medicine: Result - Labs CBC & Chem 7: 01/03/18 04:05 01/03/18 04:05 Labs: Short CBC 01/03/18 Range/Units 04:05 WBC 15.9 H (4.3-11.1) K/mcL Hgb 10.6 L (11.5-15.4) g/dL Hct 32.6 L (35.3-44.9) % Plt Count 305 (140-400) K/mcL Neutrophils # 13.1 H (1.6-8.9) K/mcL BMP 01/03/18 04:05 Sodium 136 Potassium 3.9 Chloride 102 Carbon Dioxide 25 BUN 25 H Creatinine 0.41 L Glucose 119 H Calcium 8.8 Liver Function 01/03/18 Range/Units 04:05 Total Bilirubin 0.5 (0.3-1.0) mg/dL AST 14 (13-39) Units/L ALT 20 (7-52) Units/L Alkaline Phosphatase 132 H (34-104) Units/L Albumin 3.1 L (3.5-5.7) g/dL - ABG Interpretation ABG results: PT/INR, D-dimer PT 13.7 Seconds (9.4-12.1) H 12/24/17 03:24 D-Dimer 1391 ng/mLFEU (0-500) H 12/23/17 09:03 - Attending Attestation I examined this patient and my medical decision-making was reviewed with the Resident Physician. I agree with the documented findings, disposition and treatment plan as described except to the extent set forth below. <Delroy Cooney - Last Filed: 01/03/18 11:20> (1) Community acquired pneumonia Qualifiers: Laterality: left Lung location: unspecified part of lung Qualified Code(s): J18.9 - Pneumonia, unspecified organism (6) Constipation Qualifiers: Constipation type: drug induced constipation Qualified Code(s): K59.03 - Drug induced constipation <Madiha Ramos - Last Filed: 01/03/18 18:07> (1) Community acquired pneumonia Qualifiers: Laterality: left Lung location: unspecified part of lung Qualified Code(s): J18.9 - Pneumonia, unspecified organism (3) Lung cancer Qualifiers: Laterality: unspecified laterality Lung location: unspecified part of lung Qualified Code(s): C34.90 - Malignant neoplasm of unspecified part of unspecified bronchus or lung (6) Constipation Qualifiers: Constipation type: drug induced constipation Qualified Code(s): K59.03 - Drug induced constipation
[2018-01-03] MEDS: traZODone 50 MG TABLET PO SCH (20:06)
[2018-01-04] MEDS: Ipratropium Neb 0.5 MG NEBULIZER IH SCH ×5 (03:41→22:58)
[2018-01-04] MEDS: Levalbuterol Neb 1.25 MG/3 ML IH SCH ×3 (03:41→15:39)
[2018-01-04 05:22] LABS: Basophils # 0.1 K/mcL (0.0-0.2); Basophils % 0.5 %; Hematocrit 32.9 % (35.3-44.9); Hemoglobin 10.7 g/dL (11.5-15.4); Immature Granulocytes % 2.8 % (0-4); Lymphocytes # 1.2 K/mcL (0.6-4.6); Lymphocytes % 7.1 %; Mean Corpuscular HGB Conc 32.5 g/dL (31.6-35.5); Mean Corpuscular Hemoglobin 28.5 pg (28.0-33.3); Mean Corpuscular Volume 87.5 fL (83.0-100.0); Mean Platelet Volume 8.9 fL (9.4-12.4); Monocytes # 1.5 K/mcL (0.0-1.3); Monocytes % 8.8 %; Neutrophils # 13.5 K/mcL (1.6-8.9); Platelet Count 316 K/mcL (140-400); Red Blood Count 3.76 M/mcL (3.82-4.97); Red Cell Distribution Width 15.6 % (11.5-14.5); Segmented Neutrophils % 80.8 %
[2018-01-04 05:41] LABS: Alanine Aminotransferase 19 Units/L (7-52); Albumin 3.1 g/dL (3.5-5.7); Albumin/Globulin Ratio 1.1 (1.1-2.2); Alkaline Phosphatase 133 Units/L (34-104); Aspartate Amino Transferase 14 Units/L (13-39); BUN/Creatinine Ratio 56 (6-26); Bilirubin,Total 0.5 mg/dL (0.3-1.0); Blood Urea Nitrogen 29 mg/dL (8-23); Calcium 8.6 mg/dL (8.6-10.3); Carbon Dioxide 25 mEq/L (23-29); Chloride 102 mEq/L (98-107); Globulin 2.7 g/dL (2.4-3.5); Glucose 113 mg/dL (70-105); Osmolality,Calculated 289 (280-300); Potassium 3.4 mEq/L (3.5-5.1); Sodium 136 mEq/L (136-145); Total Protein 5.8 g/dL (6.4-8.9); eGFR For Non-African Americans > 60 (> 60)
[2018-01-04] MEDS: *HR* Heparin 5,000 UNIT/ML VIAL SQ SCH ×2 (06:30→20:44)
[2018-01-04] MEDS: GuaiFENesin/Codeine Oral Soln 5 ML UDC PO SCH ×3 (06:30→20:45)
--- NOTE | 2018-01-04 09:00 | Internal Med Progress Note ---
<ErosDelroy S - Last Filed: 01/04/18 11:55> Hospitalist Progress Note - Encounter Date of Encounter: 01/04/18 Time of Encounter: 08:58 - Subjective Interval History: Ms. Mae is a 62 year old female with PMH of COPD, anxiety, arthritis, kidney stones, depression, and osteoporosis. -last week has had URI symptoms and cough. Cough has been nonproductive and she states that she has been feeling very weak. -The pt states she has a hx of COPD and that she has been having increasing SOB from her baseline. -She doesn't take nebulizers as much as she should, according to her. -pt denies home oxygen use In the ER the pt has a (-) troponin, lactic acid of 0.8. D dimer is 1391 CT was negative for PE Stat pulmonolog consult placed -Dr Paige spoken to and pt is s/p bronchoscopy 9.. Pt has decided on going home with home health. Social work is working on getting her oxygen set up at home, possibly trying to get a bed depending on decision regarding hospice. -pt had PTOT evaluation and desat to 70's when sat to side of the bed, not stable for discharge -pt remains very weak, unstable and has deconditioned since coming to [facility] - Exam Vitals: Temp Pulse Resp BP Pulse Ox 97.7 F 128 16 97/68 90 01/04/18 06:49 01/04/18 06:49 01/04/18 07:38 01/04/18 06:49 01/04/18 07:38 Exam: general - nad, aox3, pleasant lungs - decreased breath sounds, crackles, no wheeze, not using accessory mm of breathing cardio - tacycardia, s1s2, clear to auscultation, no MRG abd - NTND, no rebound or guarding, thin and frail skin - intact, no ulcer, no rash extremities - no edema - Assessment and Plan (1) Community acquired pneumonia Current Visit: Yes Status: Acute Assessment and Plan: Likely bacterial in origin -WBC coutn today is 16.7, most likely secondary to glucocorticoids CXR on 12/29/17 showed complete opacification of the left hemithorax Acid fast stain negative, respiratory culture negative Legionella and s pneumo antigens negative Blood cultures negative Plan: -abx deescalated, cefepime discontinued -on levaquin day 12/01 as per respiratory (2) Acute exacerbation of chronic obstructive airways disease Current Visit: Yes Status: Acute Assessment and Plan: Pt was switched to high flow NC, currently on 4L -states she is still SOB Pt desat to 70's when PTOT came to see her and sat to side of the bed. -PTOT saw yesterday, pt c/o lightheadedness and dizziness when sat up at bed. O2 sat dropped Plan: -use BIPAP if compliant -continue Atrovent and Xopendex -Cont high flow O2 -encourage incentive spirometry -IV steroids d/c yesterday and changed to 40mg PO prednisone -will d/c pt on a prolonged taper as per d/c instructions -reconsult pulmonology for recommendations on home oxygen, prednisone taper since pt is no longer going home with hospice (3) Lung cancer Current Visit: Yes Status: Suspected Assessment and Plan: Pt is s/p bronchoscopy completed on 12/24/17 --suspicious left lower lobe lesion , friable mucosa in left upper lobe/left lower lobe -biopsies taken CT chest showed - no PE; masslike consolidation right hemithorax maybe neoplasm ; possible adrenal and bony mets -no evidence of acute pulmonary emobli AFB, fungal, gram stain - negative Pt has decided on going home with home health. Social work is working on getting her oxygen set up at home, possibly trying to get a bed depending on decision regarding hospice. -pt had PTOT evaluation and desat to 70's when sat to side of the bed, not stable for discharge -pt remains very weak, unstable and has deconditioned since coming to [facility] Plan: -bx report pending -heme onc consulted -palliative consulted -reconsult pulmonology for recommendations on home oxygen, prednisone taper since pt is no longer going home with hospice (4) Hypokalemia Current Visit: Yes Status: Acute Assessment and Plan: potassium today 3.4 -replaced -recheck CMP in AM (5) Acute respiratory failure with hypoxia Current Visit: Yes Status: Acute Assessment and Plan: Currently 94% on 4L high flow oxygen -pt continues to remain SOB and dypsnea on exertion -pt had PTOT evaluation and desat to 70's when sat to side of the bed, not stable for discharge -pt remains very weak, unstable and has deconditioned since coming to [facility] Plan: -Cont high flow O2 -incentive spirometry -Chest percussion therapy -Atrovent and Xopenex (6) Constipation Current Visit: Yes Status: Acute Assessment and Plan: C/O constipation over weekend Plan: -miralax, senna plus, lactulose was given -ducolax suppository and enema given -continue stool softeners (7) Severe muscle deconditioning Current Visit: Yes Status: Acute Assessment and Plan: Pt becoming very weak -PTOT consulted and when pt sits up to the side of the bed she is desat to 70's -pt has lost some weight since admission -prealbumin 17.8 -encourage ensure TID Pt needs to be discahrged with bedside commode, hospital bed and accomodations for home health DVT Prophylaxis: sq heparin - Time Spent with Patient Total time spent is greater than 50% in coordination of care (as documented) at patient's floor/unit and/or counseling patient: less than 15 minutes Plan of Care Discussed with: case management Internal Medicine: Result - Labs CBC & Chem 7: 01/04/18 04:37 01/04/18 04:37 Labs: Short CBC 01/04/18 Range/Units 04:37 WBC 16.7 H (4.3-11.1) K/mcL Hgb 10.7 L (11.5-15.4) g/dL Hct 32.9 L (35.3-44.9) % Plt Count 316 (140-400) K/mcL Neutrophils # 13.5 H (1.6-8.9) K/mcL BMP 01/04/18 04:37 Sodium 136 Potassium 3.4 L Chloride 102 Carbon Dioxide 25 BUN 29 H Creatinine 0.52 L Glucose 113 H Calcium 8.6 Liver Function 01/04/18 Range/Units 04:37 Total Bilirubin 0.5 (0.3-1.0) mg/dL AST 14 (13-39) Units/L ALT 19 (7-52) Units/L Alkaline Phosphatase 133 H (34-104) Units/L Albumin 3.1 L (3.5-5.7) g/dL - ABG Interpretation ABG results: PT/INR, D-dimer PT 13.7 Seconds (9.4-12.1) H 12/24/17 03:24 D-Dimer 1391 ng/mLFEU (0-500) H 12/23/17 09:03 Consult Discharge Plan - Plan Referrals: Hortensia Burnett, FURNACE FILLER [Advanced Practice Nurse] - 01/08/18 3:00 pm (please arrive 20 minutes early to fill out paper work take photo id and insurance card with you) Prescriptions: Promethazine [Phenergan] 12.5 mg PO Q6HR PRN 30 Days #30 tablet PRN Reason: Nausea And Vomiting diazePAM [Valium] 3 mg PO TID PRN 30 Days #90 tablet PRN Reason: Anxiety Diltiazem CD (24hr) [Cardizem CD] 240 mg PO DAILY 30 Days #30 cap.er.24h levoFLOXacin [Levaquin] 750 mg PO DAILY 3 Days #3 tablet Nicotine Patch [Nicoderm] 21 mg TD DAILY 30 Days #30 patch.td24 Polyethylene Glycol 3350 [MiraLAX] 17 gm PO DAILY 30 Days #30 powd.pack PredniSONE [Lyndsay] 5 mg PO DAILY 8 Days #6 tablet. PredniSONE [Deltasone] 20 mg PO DAILY 12 Days #14 tablet Sennosides/Docusate Sodium [Senna Plus] 1 each PO BID 30 Days #30 tablet <Madiha Ramos - Last Filed: 01/04/18 18:08> Hospitalist Progress Note - Encounter Date of Encounter: 01/04/18 - Exam Vitals: Temp Pulse Resp BP Pulse Ox 97.8 F 107 16 106/94 90 01/04/18 14:55 01/04/18 14:55 01/04/18 15:39 01/04/18 14:55 01/04/18 15:39 - Assessment and Plan (1) Community acquired pneumonia Current Visit: Yes Status: Acute (2) Acute exacerbation of chronic obstructive airways disease Current Visit: Yes Status: Acute (3) Lung cancer Current Visit: Yes Status: Suspected (4) Hypokalemia Current Visit: Yes Status: Acute (5) Acute respiratory failure with hypoxia Current Visit: Yes Status: Acute (6) Constipation Current Visit: Yes Status: Acute (7) Severe muscle deconditioning Current Visit: Yes Status: Acute - Time Spent with Patient Total time spent is greater than 50% in coordination of care (as documented) at patient's floor/unit and/or counseling patient: Internal Medicine: Result - Labs CBC & Chem 7: 01/04/18 04:37 01/04/18 04:37 Labs: Short CBC 01/04/18 Range/Units 04:37 WBC 16.7 H (4.3-11.1) K/mcL Hgb 10.7 L (11.5-15.4) g/dL Hct 32.9 L (35.3-44.9) % Plt Count 316 (140-400) K/mcL Neutrophils # 13.5 H (1.6-8.9) K/mcL BMP 01/04/18 04:37 Sodium 136 Potassium 3.4 L Chloride 102 Carbon Dioxide 25 BUN 29 H Creatinine 0.52 L Glucose 113 H Calcium 8.6 Liver Function 01/04/18 Range/Units 04:37 Total Bilirubin 0.5 (0.3-1.0) mg/dL AST 14 (13-39) Units/L ALT 19 (7-52) Units/L Alkaline Phosphatase 133 H (34-104) Units/L Albumin 3.1 L (3.5-5.7) g/dL - ABG Interpretation ABG results: PT/INR, D-dimer PT 13.7 Seconds (9.4-12.1) H 12/24/17 03:24 D-Dimer 1391 ng/mLFEU (0-500) H 12/23/17 09:03 - Attending Attestation I examined this patient and my medical decision-making was reviewed with the Resident Physician. I agree with the documented findings, disposition and treatment plan as described except to the extent set forth below. Family at bedside, we did discuss course of illness of end stage COPD and severity with patient. She did decide against home with hospice a few days ago. We did review today that she has made little progress in past few days because of course of COPD illness. We are arranging for hospital bed and high flow O2 on discharge. <Delroy Cooney S - Last Filed: 01/04/18 11:55> (1) Community acquired pneumonia Qualifiers: Laterality: left Lung location: unspecified part of lung Qualified Code(s): J18.9 - Pneumonia, unspecified organism (6) Constipation Qualifiers: Constipation type: drug induced constipation Qualified Code(s): K59.03 - Drug induced constipation <Madiha Ramos - Last Filed: 01/04/18 18:08> (1) Community acquired pneumonia Qualifiers: Laterality: left Lung location: unspecified part of lung Qualified Code(s): J18.9 - Pneumonia, unspecified organism (3) Lung cancer Qualifiers: Laterality: unspecified laterality Lung location: unspecified part of lung Qualified Code(s): C34.90 - Malignant neoplasm of unspecified part of unspecified bronchus or lung (6) Constipation Qualifiers: Constipation type: drug induced constipation Qualified Code(s): K59.03 - Drug induced constipation
[2018-01-04] MEDS: Venlafaxine XR (24 HR) 150 MG CAP.ER.24H PO SCH (09:05)
[2018-01-04] MEDS: Sennosides/Docusate Sodium TABLET PO SCH ×2 (09:05→20:44)
[2018-01-04] MEDS: predniSONE 20 MG TABLET PO SCH (09:05)
[2018-01-04] MEDS: Aspirin Enteric Coated 81 MG Tablet PO SCH (09:05)
[2018-01-04] MEDS: levoFLOXacin 750 MG TABLET PO SCH (09:06)
[2018-01-04] MEDS: Nicotine 21 MG PATCH.TD24 TD SCH (09:06)
[2018-01-04] MEDS: Nystatin SUSP 5 ML UD.LIQ PO SCH ×4 (09:06→20:45)
[2018-01-04] MEDS: Diltiazem CD (24hr) 240 MG CAPSULE PO SCH (10:27)
--- NOTE | 2018-01-04 16:12 | Pulmonology Progress Note ---
Date of Encounter: 01/04/18 Time of Encounter: 16:10 Assessment and Plan (1) Acute and chronic respiratory failure with hypoxia Current Visit: Yes Status: Acute Continue supplemental oxygen to keep saturation greater than 88% at all times Currently she is tolerating 5 L nasal cannula and that would not be an appropriate amount of oxygen for her to be discharged on Continue to focus on incentive spirometry out of bed to chair and ambulation as ways to medicate the effects of VQ mismatching related to atelectasis (2) Community acquired pneumonia Current Visit: Yes Status: Acute She has completed antimicrobial therapy Qualifiers: Laterality: left Lung location: unspecified part of lung Qualified Code(s ): J18.9 - Pneumonia, unspecified organism (3) Acute exacerbation of chronic obstructive airways disease Current Visit: Yes Status: Acute Recommend tapering of oral glucocorticoid starting at 40 mg prednisone down to 10 mg prednisone over 2 weeks. If she becomes increasingly short of breath or worsening of symptoms stop at the taper point and go back to the next 10 mg dosing were symptoms were not present (4) Lesion of left lung Current Visit: Yes Status: Acute This is concerning for primary lung malignancy pending final pathology interpretation that was sent to outside facility ([facility]) pending final pathology interpretation she has follow-up with oncology (5) Goals of care, counseling/discussion Current Visit: Yes Status: Acute Her prognosis is very poor she has been evaluated by palliative care there is a initial decision to pursue hospice measures however she has rescinded this and wants to continue to receive care current CODE STATUS is DNAR/DNI Subjective Principal diagnosis: COPD exacerbation Interval history: The patient is resting comfortably in bed the room in no acute events overnight except the patient has decided that she does not want to pursue full comfort measures at this time wants continue to receive treatment did not enter hospice program. Pulmonary was asked to make recommendations regarding oxygen and steroid choice/duration with regards to discharge planning. She denies complaints today except that she feels weak she has been able to be weaned down to 5 L nasal cannula oxygen Objective PUL Vital signs: Last Vital Signs Temp 97.8 F 01/04/18 14:55 Pulse 107 01/04/18 14:55 Resp 19 01/04/18 14:55 BP 106/94 01/04/18 14:55 Pulse Ox 90 01/04/18 14:55 General appearance: no acute distress, other (Frail weak appearing) Effort: normal Auscultation: bilateral: diminished breath sounds Cardiovascular: regular rate and rhythm Gastrointestinal: normoactive bowel sounds, non-tender Integumentary: normal Extremities: no cyanosis, no edema, no clubbing normal mental status, non-focal exam mood appropriate Results - Laboratory Findings CBC and BMP: 01/04/18 04:37 01/04/18 04:37 PT/INR, D-dimer PT 13.7 Seconds (9.4-12.1) H 12/24/17 03:24 D-Dimer 1391 ng/mLFEU (0-500) H 12/23/17 09:03 Abnormal lab findings: Abnormal lab results WBC 16.7 K/mcL (4.3-11.1) H 01/04/18 04:37 RBC 3.76 M/mcL (3.82-4.97) L 01/04/18 04:37 Hgb 10.7 g/dL (11.5-15.4) L 01/04/18 04:37 Hct 32.9 % (35.3-44.9) L 01/04/18 04:37 RDW 15.6 % (11.5-14.5) H 01/04/18 04:37 MPV 8.9 fL (9.4-12.4) L 01/04/18 04:37 Neutrophils # 13.5 K/mcL (1.6-8.9) H 01/04/18 04:37 Monocytes # 1.5 K/mcL (0.0-1.3) H 01/04/18 04:37 Nucleated RBCs/100 WBC 0.2 /100 WBC (0) H 01/01/18 05:03 PT 13.7 Seconds (9.4-12.1) H 12/24/17 03:24 D-Dimer 1391 ng/mLFEU (0-500) H 12/23/17 09:03 Potassium 3.4 mEq/L (3.5-5.1) L 01/04/18 04:37 BUN 29 mg/dL (8-23) H 01/04/18 04:37 Creatinine 0.52 mg/dL (0.60-1.20) L 01/04/18 04:37 BUN/Creatinine Ratio 56 (6-26) H 01/04/18 04:37 Glucose 113 mg/dL (70-105) H 01/04/18 04:37 Alkaline Phosphatase 133 Units/L (34-104) H 01/04/18 04:37 Serum Total Protein 5.8 g/dL (6.4-8.9) L 01/04/18 04:37 Albumin 3.1 g/dL (3.5-5.7) L 01/04/18 04:37 Fluid Appearance Hazy (Clear) A 12/24/17 09:26 Vancomycin Trough 12 mcg/mL (5-10) H 12/27/17 02:45 Mycoplasma pneumon IgG 0.15 U/L (<=0.09) H 12/23/17 15:07 - Microbiology Findings Microbiology Findings: Microbiology, Last 48 Hours 12/24/17 09:26 Fungal Culture - Preliminary Left Lower Lobe Lung Debbie albicans - Clinical Findings Intake & Output: Intake & Output 01/04/18 01/04/18 01/04/18 07:59 15:59 23:59 Intake Total 240 / 240 Output Total 400 / 400 Balance -400 / -400 240 / 240 Weight 47.4 kg Consult Discharge Plan - Plan Referrals: Hortensia Burnett, [employer]TER [Advanced Practice Nurse] - 01/08/18 3:00 pm (please arrive 20 minutes early to fill out paper work take photo id and insurance card with you) Prescriptions: Promethazine [Phenergan] 12.5 mg PO Q6HR PRN 30 Days #30 tablet PRN Reason: Nausea And Vomiting diazePAM [Valium] 3 mg PO TID PRN 30 Days #90 tablet PRN Reason: Anxiety Diltiazem CD (24hr) [Cardizem CD] 240 mg PO DAILY 30 Days #30 cap.er.24h levoFLOXacin [Levaquin] 750 mg PO DAILY 3 Days #3 tablet Nicotine Patch [Nicoderm] 21 mg TD DAILY 30 Days #30 patch.td24 Polyethylene Glycol 3350 [MiraLAX] 17 gm PO DAILY 30 Days #30 powd.pack PredniSONE [Lyndsay] 5 mg PO DAILY 8 Days #6 tablet.dr PredniSONE [Deltasone] 20 mg PO DAILY 12 Days #14 tablet Sennosides/Docusate Sodium [Senna Plus] 1 each PO BID 30 Days #30 tablet
[2018-01-04] MEDS: traZODone 50 MG TABLET PO SCH (20:43)
[2018-01-05] MEDS: Levalbuterol Neb 1.25 MG/3 ML IH SCH ×6 (02:31→20:15)
[2018-01-05] MEDS: Ipratropium Neb 0.5 MG NEBULIZER IH SCH ×7 (02:31→23:33)
[2018-01-05] MEDS: GuaiFENesin/Codeine Oral Soln 5 ML UDC PO SCH ×5 (05:17→20:41)
[2018-01-05] MEDS: *HR* Heparin 5,000 UNIT/ML VIAL SQ SCH ×2 (06:45→17:30)
[2018-01-05] MEDS: Aspirin Enteric Coated 81 MG Tablet PO SCH (08:41)
[2018-01-05] MEDS: Venlafaxine XR (24 HR) 150 MG CAP.ER.24H PO SCH (08:41)
[2018-01-05] MEDS: Diltiazem CD (24hr) 240 MG CAPSULE PO SCH (08:41)
[2018-01-05] MEDS: Nystatin SUSP 5 ML UD.LIQ PO SCH ×4 (08:42→20:41)
[2018-01-05] MEDS: Sennosides/Docusate Sodium TABLET PO SCH ×2 (08:42→20:41)
[2018-01-05] MEDS: Nicotine 21 MG PATCH.TD24 TD SCH (08:44)
[2018-01-05] MEDS: predniSONE 20 MG TABLET PO SCH (08:52)
--- NOTE | 2018-01-05 09:42 | Internal Med Progress Note ---
<Delroy Cooney S - Last Filed: 01/05/18 09:39> Hospitalist Progress Note - Encounter Date of Encounter: 01/05/18 Time of Encounter: 09:39 - Subjective Interval History: Ms. Mae is a 62 year old female with PMH of COPD, anxiety, arthritis, kidney stones, depression, and osteoporosis. -last week has had URI symptoms and cough. Cough has been nonproductive and she states that she has been feeling very weak. -The pt states she has a hx of COPD and that she has been having increasing SOB from her baseline. -She doesn't take nebulizers as much as she should, according to her. -pt denies home oxygen use In the ER the pt has a (-) troponin, lactic acid of 0.8. D dimer is 1391 CT was negative for PE Stat pulmonolog consult placed -Dr Paige spoken to and pt is s/p bronchoscopy 9.06.11 Pt has decided on going home with home health. Social work is working on getting her oxygen set up at home, possibly trying to get a bed depending on decision regarding hospice. Pt desaturated to the 70's this morning and had to be turned up on oxygen requirements. Currently satting in the upper 80's on 7L of high flow O2. -pt remains very weak, unstable and has deconditioned since coming to [place] -she has increasing SOB this morning and is very uncomfortable - Exam Vitals: Temp Pulse Resp BP Pulse Ox 98.0 F 116 20 113/81 88 01/05/18 07:47 01/05/18 07:47 01/05/18 07:47 01/05/18 07:47 01/05/18 07:47 Exam: general - nad, aox3, pleasant lungs - decreased breath sounds, crackles, no wheeze, not using accessory mm of breathing cardio - tacycardia, s1s2, clear to auscultation, no MRG abd - NTND, no rebound or guarding, thin and frail skin - intact, no ulcer, no rash extremities - no edema - Assessment and Plan (1) Community acquired pneumonia Current Visit: Yes Status: Acute Assessment and Plan: Likely bacterial in origin -WBC coutn today is 16.7, most likely secondary to glucocorticoids CXR on 12/29/17 showed complete opacification of the left hemithorax Acid fast stain negative, respiratory culture negative Legionella and s pneumo antigens negative Blood cultures negative Plan: -abx deescalated, cefepime discontinued -completed levaquin 01/04/18 (2) Acute exacerbation of chronic obstructive airways disease Current Visit: Yes Status: Acute Assessment and Plan: Pt was switched to high flow NC, currently on 4L -states she is still SOB Pt desaturated to the 70's this morning and had to be turned up on oxygen requirements. Currently satting in the upper 80's on 7L of high flow O2. -she has increasing SOB this morning and is very uncomfortable Plan: -use BIPAP if compliant -continue Atrovent and Xopendex -Cont high flow O2 -encourage incentive spirometry -IV steroids d/c and changed to 40mg PO prednisone; on 01/05/18 changed to 60mg PO prednisone -will d/c pt on a prolonged taper as per d/c instructions -reconsult pulmonology for recommendations on home oxygen, prednisone taper since pt is no longer going home with hospice (3) Lung cancer Current Visit: Yes Status: Suspected Assessment and Plan: Pt is s/p bronchoscopy completed on 12/24/17 --suspicious left lower lobe lesion , friable mucosa in left upper lobe/left lower lobe -biopsies taken CT chest showed - no PE; masslike consolidation right hemithorax maybe neoplasm ; possible adrenal and bony mets -no evidence of acute pulmonary emobli AFB, fungal, gram stain - negative Pt desaturated to the 70's this morning and had to be turned up on oxygen requirements. Currently satting in the upper 80's on 7L of high flow O2. -pt remains very weak, unstable and has deconditioned since coming to [place] -she has increasing SOB this morning and is very uncomfortable Plan: -bx report pending -heme onc consulted -palliative consulted -pulmonology reconsulted (4) Hypokalemia Current Visit: Yes Status: Acute Assessment and Plan: potassium today 3.4 -replaced -recheck CMP in AM (5) Acute respiratory failure with hypoxia Current Visit: Yes Status: Acute Assessment and Plan: Currently 94% on 4L high flow oxygen -pt continues to remain SOB and dypsnea on exertion Pt desaturated to the 70's this morning and had to be turned up on oxygen requirements. Currently satting in the upper 80's on 7L of high flow O2. -pt remains very weak, unstable and has deconditioned since coming to [place] -she has increasing SOB this morning and is very uncomfortable Plan: -Cont high flow O2 -incentive spirometry -Chest percussion therapy -Atrovent and Xopenex (6) Constipation Current Visit: Yes Status: Acute Assessment and Plan: C/O constipation Plan: -miralax, senna plus, lactulose was given -ducolax suppository and enema given -continue stool softeners (7) Severe muscle deconditioning Current Visit: Yes Status: Acute Assessment and Plan: Pt becoming very weak -PTOT consulted and when pt sits up to the side of the bed she is desat to 70's -pt has lost some weight since admission -prealbumin 17.8 -encourage ensure TID Pt needs to be discahrged with bedside commode, hospital bed and accomodations for home health DVT Prophylaxis: sq heparin - Time Spent with Patient Total time spent is greater than 50% in coordination of care (as documented) at patient's floor/unit and/or counseling patient: less than 15 minutes Plan of Care Discussed with: patient Internal Medicine: Result - Labs CBC & Chem 7: 01/04/18 04:37 01/04/18 04:37 - ABG Interpretation ABG results: PT/INR, D-dimer PT 13.7 Seconds (9.4-12.1) H 12/24/17 03:24 D-Dimer 1391 ng/mLFEU (0-500) H 12/23/17 09:03 Consult Discharge Plan - Plan Referrals: Hortensia Burnett, MEDICAL RECORD TRANSCRIBER [Advanced Practice Nurse] - 01/08/18 3:00 pm (please arrive 20 minutes early to fill out paper work take photo id and insurance card with you) Prescriptions: Promethazine [Phenergan] 12.5 mg PO Q6HR PRN 30 Days #30 tablet PRN Reason: Nausea And Vomiting diazePAM [Valium] 3 mg PO TID PRN 30 Days #90 tablet PRN Reason: Anxiety Diltiazem CD (24hr) [Cardizem CD] 240 mg PO DAILY 30 Days #30 cap.er.24h levoFLOXacin [Levaquin] 750 mg PO DAILY 3 Days #3 tablet Nicotine Patch [Nicoderm] 21 mg TD DAILY 30 Days #30 patch.td24 Polyethylene Glycol 3350 [MiraLAX] 17 gm PO DAILY 30 Days #30 powd.pack PredniSONE [Lyndsay] 5 mg PO DAILY 8 Days #6 tablet. PredniSONE [Deltasone] 20 mg PO DAILY 12 Days #14 tablet Sennosides/Docusate Sodium [Senna Plus] 1 each PO BID 30 Days #30 tablet <Madiha Ramos - Last Filed: 01/05/18 15:08> Hospitalist Progress Note - Encounter Date of Encounter: 01/05/18 - Exam Vitals: Temp Pulse Resp BP Pulse Ox 97.7 F 122 20 122/73 88 01/05/18 11:46 01/05/18 11:46 01/05/18 12:09 01/05/18 11:46 01/05/18 12:09 - Assessment and Plan (1) Community acquired pneumonia Current Visit: Yes Status: Acute (2) Acute exacerbation of chronic obstructive airways disease Current Visit: Yes Status: Acute (3) Lung cancer Current Visit: Yes Status: Suspected (4) Hypokalemia Current Visit: Yes Status: Acute (5) Acute respiratory failure with hypoxia Current Visit: Yes Status: Acute (6) Constipation Current Visit: Yes Status: Acute (7) Severe muscle deconditioning Current Visit: Yes Status: Acute - Time Spent with Patient Total time spent is greater than 50% in coordination of care (as documented) at patient's floor/unit and/or counseling patient: Internal Medicine: Result - Labs CBC & Chem 7: 01/04/18 04:37 01/04/18 04:37 - ABG Interpretation ABG results: PT/INR, D-dimer PT 13.7 Seconds (9.4-12.1) H 12/24/17 03:24 D-Dimer 1391 ng/mLFEU (0-500) H 12/23/17 09:03 - Attending Attestation I examined this patient and my medical decision-making was reviewed with the Resident Physician. I agree with the documented findings, disposition and treatment plan as described except to the extent set forth below. We discussed overall prognosis is poor with family and patient yesterday. Today the patient had multiple episodes of desaturations. Physical exam relatively unchanged since yesterday; poor aeration of lungs on auscultation. At bedside her SpO2 noted to be 86% on 6 L O2, now turned up still hypoxic. I discussed with who is at bedside this morning that treatment is limited with the course of severe COPD. Will increase Prednisone to 60 mg daily and continue supportive care. Palliative therapy following. Treating anxiety as this is also contributing to respiratory distress. <Delroy Cooney - Last Filed: 01/05/18 09:39> (1) Community acquired pneumonia Qualifiers: Laterality: left Lung location: unspecified part of lung Qualified Code(s): J18.9 - Pneumonia, unspecified organism (6) Constipation Qualifiers: Constipation type: drug induced constipation Qualified Code(s): K59.03 - Drug induced constipation <Madiha Ramos - Last Filed: 01/05/18 15:08> (1) Community acquired pneumonia Qualifiers: Laterality: left Lung location: unspecified part of lung Qualified Code(s): J18.9 - Pneumonia, unspecified organism (3) Lung cancer Qualifiers: Laterality: unspecified laterality Lung location: unspecified part of lung Qualified Code(s): C34.90 - Malignant neoplasm of unspecified part of unspecified bronchus or lung (6) Constipation Qualifiers: Constipation type: drug induced constipation Qualified Code(s): K59.03 - Drug induced constipation
[2018-01-05] MEDS ORDERED: MORPHINE SUL Oral CONC 10 MG/0.5 ML ORAL.SYG PO ONE (10:25)
[2018-01-05] MEDS ORDERED: *HR* LORazepam 2 MG/ML VIAL IVP ONE (10:27)
--- NOTE | 2018-01-05 10:32 | Palliative Progress Note ---
Date of Encounter: 01/05/18 Time of Encounter: 10:30 - Assessment and plan (1) Goals of care, counseling/discussion Current Visit: Yes Status: Acute Assessment and plan: Pt and were updated on current medical situation and on obvious clinical decline. Pt stated that her gaol is still to get home, but as per family wishes, she would like to have the pathology report before deciding for hospice. On a private conversation with , expressed the concern that pt may be actively dying at this point, and that the report might not make a difference on the outcome as pt now has an ECOG 4-5, and is therefore not eligible for treatment. understands and will discuss with children. Called pathology lab to inquire on pathology report. Lab stated the report might be returning early next week. (2) Acute exacerbation of chronic obstructive airways disease Current Visit: Yes Status: Acute Assessment and plan: Patient will continue levaquin for 3 more days on Oxygen recommend continue nebulizers will give Roxanol 5 mg prn for SOB Ativan 0.5 mg IV prn for anxiety Pt is on Senna and lactulose prn (3) Lesion of left lung Current Visit: Yes Status: Acute Assessment and plan: CT revealed hilar lymphadenopathy with L masslike consolidation Concerning for malignancy with lymph node involvement s/p bronchosopy with BAL and endobronchial biopsies on 12/24 Pathology pending, as per lab result may be returned from [facility] early next week. - Time Spent With Patient Total time spent is greater than 50% in coordination of care (as documented) at patient's floor/unit and/or counseling patient: Greater than 35 minutes - Subjective Interval history: Patient was seen this morning, lying in bed, complaining of SOB and feeling very anxious She stated she is feeling chest tightness and tenderness on palpation, as well as persisting cough. She denies nausea, vomiting, constipation and dysuria. - Constitutional Vitals: Abnormal lab results WBC 16.7 K/mcL (4.3-11.1) H 01/04/18 04:37 RBC 3.76 M/mcL (3.82-4.97) L 01/04/18 04:37 Hgb 10.7 g/dL (11.5-15.4) L 01/04/18 04:37 Hct 32.9 % (35.3-44.9) L 01/04/18 04:37 RDW 15.6 % (11.5-14.5) H 01/04/18 04:37 MPV 8.9 fL (9.4-12.4) L 01/04/18 04:37 Neutrophils # 13.5 K/mcL (1.6-8.9) H 01/04/18 04:37 Monocytes # 1.5 K/mcL (0.0-1.3) H 01/04/18 04:37 Nucleated RBCs/100 WBC 0.2 /100 WBC (0) H 01/01/18 05:03 PT 13.7 Seconds (9.4-12.1) H 12/24/17 03:24 D-Dimer 1391 ng/mLFEU (0-500) H 12/23/17 09:03 Potassium 3.4 mEq/L (3.5-5.1) L 01/04/18 04:37 BUN 29 mg/dL (8-23) H 01/04/18 04:37 Creatinine 0.52 mg/dL (0.60-1.20) L 01/04/18 04:37 BUN/Creatinine Ratio 56 (6-26) H 01/04/18 04:37 Glucose 113 mg/dL (70-105) H 01/04/18 04:37 Alkaline Phosphatase 133 Units/L (34-104) H 01/04/18 04:37 Serum Total Protein 5.8 g/dL (6.4-8.9) L 01/04/18 04:37 Albumin 3.1 g/dL (3.5-5.7) L 01/04/18 04:37 Fluid Appearance Hazy (Clear) A 12/24/17 09:26 Vancomycin Trough 12 mcg/mL (5-10) H 12/27/17 02:45 Mycoplasma pneumon IgG 0.15 U/L (<=0.09) H 12/23/17 15:07 Palliative Quality Palliative Quality: Screen for Code Status: Yes, Screen for Goals of Care: Yes, Screen for Pain: Yes, If Pain Regimen Started, Initiate Bowel Regimen: Yes, Screen for Nausea/Vomitting: Yes Code Status: 12/29/17 09:26 CODE [Resuscitation Status: Active] [RES] Routine Comment: Resuscitation Status: [id number] - Labs CBC & Chem 7: 01/04/18 04:37 01/04/18 04:37 - ABG Interpretation ABG results: PT/INR, D-dimer PT 13.7 Seconds (9.4-12.1) H 12/24/17 03:24 D-Dimer 1391 ng/mLFEU (0-500) H 12/23/17 09:03 Consult Discharge Plan - Plan Referrals: Hortensia Burnett, [employer]S COUNTER SALES PERSON [Advanced Practice Nurse] - 01/08/18 3:00 pm (please arrive 20 minutes early to fill out paper work take photo id and insurance card with you) Prescriptions: Promethazine [Phenergan] 12.5 mg PO Q6HR PRN 30 Days #30 tablet PRN Reason: Nausea And Vomiting diazePAM [Valium] 3 mg PO TID PRN 30 Days #90 tablet PRN Reason: Anxiety Diltiazem CD (24hr) [Cardizem CD] 240 mg PO DAILY 30 Days #30 cap.er.24h levoFLOXacin [Levaquin] 750 mg PO DAILY 3 Days #3 tablet Nicotine Patch [Nicoderm] 21 mg TD DAILY 30 Days #30 patch.td24 Polyethylene Glycol 3350 [MiraLAX] 17 gm PO DAILY 30 Days #30 powd.pack PredniSONE [Lyndsay] 5 mg PO DAILY 8 Days #6 tablet. PredniSONE [Deltasone] 20 mg PO DAILY 12 Days #14 tablet Sennosides/Docusate Sodium [Senna Plus] 1 each PO BID 30 Days #30 tablet
[2018-01-05] MEDS: traZODone 50 MG TABLET PO SCH (20:41)
[2018-01-05] MEDS: MORPHINE SUL Oral CONC 10 MG/0.5 ML ORAL.SYG PO PRN (23:56)
[2018-01-06] MEDS: Ipratropium Neb 0.5 MG NEBULIZER IH SCH ×6 (03:27→23:56)
[2018-01-06] MEDS: Levalbuterol Neb 1.25 MG/3 ML IH SCH ×4 (03:27→19:55)
[2018-01-06 05:10] LABS: Basophils # 0.1 K/mcL (0.0-0.2); Basophils % 0.3 %; Hematocrit 35.7 % (35.3-44.9); Hemoglobin 11.5 g/dL (11.5-15.4); Immature Granulocytes % 3.3 % (0-4); Lymphocytes % 5.8 %; Mean Corpuscular HGB Conc 32.2 g/dL (31.6-35.5); Mean Corpuscular Hemoglobin 28.6 pg (28.0-33.3); Mean Corpuscular Volume 88.8 fL (83.0-100.0); Mean Platelet Volume 8.7 fL (9.4-12.4); Monocytes # 1.5 K/mcL (0.0-1.3); Monocytes % 8.5 %; Neutrophils # 14.5 K/mcL (1.6-8.9); Platelet Count 334 K/mcL (140-400); Red Blood Count 4.02 M/mcL (3.82-4.97); Red Cell Distribution Width 15.8 % (11.5-14.5); Segmented Neutrophils % 82.1 %
[2018-01-06 05:30] LABS: Alanine Aminotransferase 19 Units/L (7-52); Albumin 3.4 g/dL (3.5-5.7); Albumin/Globulin Ratio 1.2 (1.1-2.2); Alkaline Phosphatase 146 Units/L (34-104); Aspartate Amino Transferase 13 Units/L (13-39); BUN/Creatinine Ratio 72 (6-26); Bilirubin,Total 0.7 mg/dL (0.3-1.0); Blood Urea Nitrogen 38 mg/dL (8-23); Carbon Dioxide 23 mEq/L (23-29); Chloride 101 mEq/L (98-107); Globulin 2.8 g/dL (2.4-3.5); Glucose 136 mg/dL (70-105); Osmolality,Calculated 291 (280-300); Potassium 4.2 mEq/L (3.5-5.1); Sodium 135 mEq/L (136-145); Total Protein 6.2 g/dL (6.4-8.9); eGFR For Non-African Americans > 60 (> 60)
[2018-01-06] MEDS: *HR* Heparin 5,000 UNIT/ML VIAL SQ SCH ×2 (06:17→17:35)
[2018-01-06] MEDS: GuaiFENesin/Codeine Oral Soln 5 ML UDC PO SCH ×3 (06:18→17:35)
[2018-01-06] MEDS: Diltiazem CD (24hr) 240 MG CAPSULE PO SCH (10:54)
[2018-01-06] MEDS: Sennosides/Docusate Sodium TABLET PO SCH ×2 (10:54→21:31)
[2018-01-06] MEDS: Venlafaxine XR (24 HR) 150 MG CAP.ER.24H PO SCH (10:55)
[2018-01-06] MEDS: Nystatin SUSP 5 ML UD.LIQ PO SCH ×4 (10:55→21:31)
[2018-01-06] MEDS: predniSONE 20 MG TABLET PO SCH (10:55)
[2018-01-06] MEDS: Nicotine 21 MG PATCH.TD24 TD SCH (10:56)
--- NOTE | 2018-01-06 10:58 | Internal Med Progress Note ---
Hospitalist Progress Note - Encounter Date of Encounter: 01/06/18 Time of Encounter: 10:54 - Exam Vitals: Temp Pulse Resp BP Pulse Ox 98.5 F 124 18 106/84 91 01/06/18 07:43 01/06/18 07:43 01/06/18 07:56 01/06/18 07:43 01/06/18 07:56 Exam: general - nad, aox3 lungs - on venti mask. Labored breathing when she sits up on exam, decreased breath sounds, poor air exchange, no rales or rhonchi, + end exp wheezing. cardio - tacycardic skin - intact, no ulcer, no rash extremities - no edema - Assessment and Plan (1) Acute respiratory failure with hypoxia Current Visit: Yes Status: Acute Assessment and Plan: See COPD assessment/plan. Plan: -Cont high flow O2 -incentive spirometry -Chest percussion therapy -Atrovent and Xopenex (2) Acute exacerbation of chronic obstructive airways disease Current Visit: Yes Status: Acute Assessment and Plan: Pt was switched to high flow NC, currently on 4L -states she is still SOB Pt desaturated to the 70's this morning and had to be turned up on oxygen requirements. Currently satting in the upper 80's on 7L of high flow O2. -she has increasing SOB this morning and is very uncomfortable Plan: -use BIPAP as needed -continue Atrovent and Xopendex -encourage incentive spirometry -IV steroids d/c and changed to 40mg PO prednisone; on 01/05/18 changed to 60mg PO prednisone -reconsult pulmonology for recommendations on home oxygen, prednisone taper since pt is no longer going home with hospice Prednisone required increase back to 60 mg Prednisone due to worsening respiratory status. Patient is DNR/DNI, but she does not want hospice. She is asking for morphine for dyspnea, which is alleviating her symptoms. (3) Community acquired pneumonia Current Visit: Yes Status: Acute Assessment and Plan: Likely bacterial in origin CXR on 12/29/17 showed complete opacification of the left hemithorax Acid fast stain negative, respiratory culture negative Legionella and s pneumo antigens negative Blood cultures negative Plan: -completed levaquin 01/04/18 (4) Lung cancer Current Visit: Yes Status: Suspected Assessment and Plan: Pt is s/p bronchoscopy completed on 12/24/17 --suspicious left lower lobe lesion , friable mucosa in left upper lobe/left lower lobe -biopsies taken CT chest showed - no PE; masslike consolidation right hemithorax maybe neoplasm ; possible adrenal and bony mets -no evidence of acute pulmonary emobli Plan: -bx report pending -heme onc consulted -palliative consulted -pulmonology reconsulted Patient poor candidate for therapy given multiple co morbidities and end stage COPD. (5) Hypokalemia Current Visit: Yes Status: Acute Assessment and Plan: Replace as needed (6) Constipation Current Visit: Yes Status: Acute Assessment and Plan: C/O constipation Plan: -miralax, senna plus, lactulose was given -ducolax suppository and enema given -continue stool softeners (7) Severe muscle deconditioning Current Visit: Yes Status: Acute Assessment and Plan: Pt becoming very weak -PTOT consulted and when pt sits up to the side of the bed she is desat to 70's -pt has lost some weight since admission -prealbumin 17.8 -encourage ensure TID Pt needs to be discahrged with bedside commode, hospital bed and accomodations for home health - Time Spent with Patient Total time spent is greater than 50% in coordination of care (as documented) at patient's floor/unit and/or counseling patient: Internal Medicine: Result - Labs CBC & Chem 7: 01/06/18 04:35 01/06/18 04:35 Labs: Short CBC 01/06/18 Range/Units 04:35 WBC 17.7 H (4.3-11.1) K/mcL Hgb 11.5 (11.5-15.4) g/dL Hct 35.7 (35.3-44.9) % Plt Count 334 (140-400) K/mcL Neutrophils # 14.5 H (1.6-8.9) K/mcL BMP 01/06/18 04:35 Sodium 135 L Potassium 4.2 Chloride 101 Carbon Dioxide 23 BUN 38 H Creatinine 0.53 L Glucose 136 H Calcium 9.0 Liver Function 01/06/18 Range/Units 04:35 Total Bilirubin 0.7 (0.3-1.0) mg/dL AST 13 (13-39) Units/L ALT 19 (7-52) Units/L Alkaline Phosphatase 146 H (34-104) Units/L Albumin 3.4 L (3.5-5.7) g/dL - ABG Interpretation ABG results: PT/INR, D-dimer PT 13.7 Seconds (9.4-12.1) H 12/24/17 03:24 D-Dimer 1391 ng/mLFEU (0-500) H 12/23/17 09:03 Consult Discharge Plan - Plan Referrals: Hortensia Burnett, SECURITY SYSTEMS MANAGER [Advanced Practice Nurse] - 01/08/18 3:00 pm (please arrive 20 minutes early to fill out paper work take photo id and insurance card with you) Prescriptions: Promethazine [Phenergan] 12.5 mg PO Q6HR PRN 30 Days #30 tablet PRN Reason: Nausea And Vomiting diazePAM [Valium] 3 mg PO TID PRN 30 Days #90 tablet PRN Reason: Anxiety Diltiazem CD (24hr) [Cardizem CD] 240 mg PO DAILY 30 Days #30 cap.er.24h levoFLOXacin [Levaquin] 750 mg PO DAILY 3 Days #3 tablet Nicotine Patch [Nicoderm] 21 mg TD DAILY 30 Days #30 patch.td24 Polyethylene Glycol 3350 [MiraLAX] 17 gm PO DAILY 30 Days #30 powd.pack PredniSONE [Lyndsay] 5 mg PO DAILY 8 Days #6 tablet.dr PredniSONE [Deltasone] 20 mg PO DAILY 12 Days #14 tablet Sennosides/Docusate Sodium [Senna Plus] 1 each PO BID 30 Days #30 tablet (3) Community acquired pneumonia Qualifiers: Laterality: left Lung location: unspecified part of lung Qualified Code(s): J18.9 - Pneumonia, unspecified organism (4) Lung cancer Qualifiers: Laterality: unspecified laterality Lung location: unspecified part of lung Qualified Code(s): C34.90 - Malignant neoplasm of unspecified part of unspecified bronchus or lung (6) Constipation Qualifiers: Constipation type: drug induced constipation Qualified Code(s): K59.03 - Drug induced constipation
[2018-01-06] MEDS: Aspirin Enteric Coated 81 MG Tablet PO SCH (10:59)
[2018-01-06] MEDS: traZODone 50 MG TABLET PO SCH (21:31)
[2018-01-07] MEDS: GuaiFENesin/Codeine Oral Soln 5 ML UDC PO SCH ×4 (00:38→18:05)
[2018-01-07] MEDS: MORPHINE SUL Oral CONC 10 MG/0.5 ML ORAL.SYG PO PRN (00:48)
[2018-01-07] MEDS: Ipratropium Neb 0.5 MG NEBULIZER IH SCH ×6 (03:47→23:22)
[2018-01-07] MEDS: Levalbuterol Neb 1.25 MG/3 ML IH SCH ×4 (03:47→19:58)
[2018-01-07] MEDS: *HR* Heparin 5,000 UNIT/ML VIAL SQ SCH ×2 (06:19→18:05)
[2018-01-07] MEDS: Nystatin SUSP 5 ML UD.LIQ PO SCH ×4 (09:42→21:38)
[2018-01-07] MEDS: Nicotine 21 MG PATCH.TD24 TD SCH (09:43)
[2018-01-07] MEDS: Aspirin Enteric Coated 81 MG Tablet PO SCH (09:44)
[2018-01-07] MEDS: Sennosides/Docusate Sodium TABLET PO SCH ×2 (09:44→21:37)
[2018-01-07] MEDS: Diltiazem CD (24hr) 240 MG CAPSULE PO SCH (09:44)
[2018-01-07] MEDS: predniSONE 20 MG TABLET PO SCH (09:44)
[2018-01-07] MEDS: Venlafaxine XR (24 HR) 150 MG CAP.ER.24H PO SCH (09:45)
--- NOTE | 2018-01-07 11:12 | Internal Med Progress Note ---
Hospitalist Progress Note - Encounter Date of Encounter: 01/07/18 Time of Encounter: 11:13 - Subjective Interval History: Patient had one episode of SOB overnight that quickly resolved. This morning she has no complaints. - Exam Vitals: Temp Pulse Resp BP Pulse Ox 98.2 F 103 18 113/67 94 01/07/18 06:59 01/07/18 06:59 01/07/18 10:57 01/07/18 06:59 01/07/18 10:57 Exam: general - nad, aox3 lungs - on venti mask. Labored breathing when she sits up on exam, decreased breath sounds, poor air exchange, no rales or rhonchi skin - intact, no ulcer, no rash extremities - no edema - Assessment and Plan (1) Acute respiratory failure with hypoxia Current Visit: Yes Status: Acute Assessment and Plan: Plan: -Cont high flow O2 -incentive spirometry -Chest percussion therapy -Atrovent and Xopenex Likely home tomorrow with home setup of hospital bed and high-flow O2. (2) Acute exacerbation of chronic obstructive airways disease Current Visit: Yes Status: Acute Assessment and Plan: Pt was switched to high flow NC, currently on 4L -states she is still SOB Pt desaturated to the 70's this morning and had to be turned up on oxygen requirements. Currently satting in the upper 80's on 7L of high flow O2. -she has increasing SOB this morning and is very uncomfortable Plan: -use BIPAP as needed -continue Atrovent and Xopendex -encourage incentive spirometry -IV steroids d/c and changed to 40mg PO prednisone; on 01/05/18 changed to 60mg PO prednisone - Attempt to go back down on Prednisone to 40 mg - Likely home tomorrow if respiratory status remains unchanged. (3) Community acquired pneumonia Current Visit: Yes Status: Acute Assessment and Plan: Likely bacterial in origin CXR on 12/29/17 showed complete opacification of the left hemithorax Acid fast stain negative, respiratory culture negative Legionella and s pneumo antigens negative Blood cultures negative Plan: -completed levaquin 01/04/18 (4) Lung cancer Current Visit: Yes Status: Suspected Assessment and Plan: Pt is s/p bronchoscopy completed on 12/24/17 --suspicious left lower lobe lesion , friable mucosa in left upper lobe/left lower lobe -biopsies taken CT chest showed - no PE; masslike consolidation right hemithorax maybe neoplasm ; possible adrenal and bony mets -no evidence of acute pulmonary emobli Plan: -bx report pending -heme onc consulted -palliative consulted -pulmonology reconsulted Patient poor candidate for therapy given multiple co morbidities and end stage COPD. (5) Hypokalemia Current Visit: Yes Status: Acute Assessment and Plan: Replace as needed (6) Constipation Current Visit: Yes Status: Acute Assessment and Plan: C/O constipation Plan: -miralax, senna plus, lactulose was given -ducolax suppository and enema given -continue stool softeners (7) Severe muscle deconditioning Current Visit: Yes Status: Acute Assessment and Plan: Pt becoming very weak -PTOT consulted and when pt sits up to the side of the bed she is desat to 70's -pt has lost some weight since admission -prealbumin 17.8 -encourage ensure TID Pt needs to be discahrged with bedside commode, hospital bed and accomodations for home health - Time Spent with Patient Total time spent is greater than 50% in coordination of care (as documented) at patient's floor/unit and/or counseling patient: Internal Medicine: Result - Labs CBC & Chem 7: 01/06/18 04:35 01/06/18 04:35 - ABG Interpretation ABG results: PT/INR, D-dimer PT 13.7 Seconds (9.4-12.1) H 12/24/17 03:24 D-Dimer 1391 ng/mLFEU (0-500) H 12/23/17 09:03 Consult Discharge Plan - Plan Referrals: Hortensia Burnett, T[employer] PROTECTION SPECIALIST [Advanced Practice Nurse] - 01/08/18 3:00 pm (please arrive 20 minutes early to fill out paper work take photo id and insurance card with you) Prescriptions: Promethazine [Phenergan] 12.5 mg PO Q6HR PRN 30 Days #30 tablet PRN Reason: Nausea And Vomiting diazePAM [Valium] 3 mg PO TID PRN 30 Days #90 tablet PRN Reason: Anxiety Diltiazem CD (24hr) [Cardizem CD] 240 mg PO DAILY 30 Days #30 cap.er.24h levoFLOXacin [Levaquin] 750 mg PO DAILY 3 Days #3 tablet Nicotine Patch [Nicoderm] 21 mg TD DAILY 30 Days #30 patch.td24 Polyethylene Glycol 3350 [MiraLAX] 17 gm PO DAILY 30 Days #30 powd.pack PredniSONE [Lyndsay] 5 mg PO DAILY 8 Days #6 tablet.dr PredniSONE [Deltasone] 20 mg PO DAILY 12 Days #14 tablet Sennosides/Docusate Sodium [Senna Plus] 1 each PO BID 30 Days #30 tablet (3) Community acquired pneumonia Qualifiers: Laterality: left Lung location: unspecified part of lung Qualified Code(s): J18.9 - Pneumonia, unspecified organism (4) Lung cancer Qualifiers: Laterality: unspecified laterality Lung location: unspecified part of lung Qualified Code(s): C34.90 - Malignant neoplasm of unspecified part of unspecified bronchus or lung (6) Constipation Qualifiers: Constipation type: drug induced constipation Qualified Code(s): K59.03 - Drug induced constipation
[2018-01-07] MEDS: traZODone 50 MG TABLET PO SCH (21:37)
[2018-01-08] MEDS: GuaiFENesin/Codeine Oral Soln 5 ML UDC PO SCH ×3 (00:31→11:48)
[2018-01-08] MEDS: Levalbuterol Neb 1.25 MG/3 ML IH SCH ×3 (03:36→15:53)
[2018-01-08] MEDS: Ipratropium Neb 0.5 MG NEBULIZER IH SCH ×4 (03:36→15:53)
[2018-01-08] MEDS: *HR* Heparin 5,000 UNIT/ML VIAL SQ SCH (05:29)
[2018-01-08] MEDS: MORPHINE SUL Oral CONC 10 MG/0.5 ML ORAL.SYG PO PRN ×2 (05:36→11:54)
[2018-01-08 07:31] VITALS: BP 106/60
[2018-01-08] MEDS ORDERED: predniSONE 20 MG TABLET PO SCH (09:00)
--- NOTE | 2018-01-08 09:46 | Discharge Summary ---
<Delroy Cooney S - Last Filed: 01/08/18 15:17> - NOTES TO OUTPATIENT PROVIDER Notes to Outpatient Provider: Follow up on constipation. Follow up on prednisone taper, I gave her a prolonged taper following high dose steroid treatment in the hospital. Follow up on anxiety and pain levels. Follow up on pathology report. Orders not resulted at time of discharge: Pending orders 12/24/17 09:26 AFB Culture, Respiratory [TB] Routine AFB Smear [TB] Routine Fungal Culture [MYC] Routine 12/24/17 09:31 Cytology [PTH] Routine 12/24/17 09:35 Surgical Pathology [PTH] Routine Date of Encounter: 01/08/18 Time of Encounter: 09:40 - Discharge Diagnosis (1) Community acquired pneumonia Priority: Primary Status: Acute Qualifiers: Laterality: left Lung location: unspecified part of lung Qualified Code(s ): J18.9 - Pneumonia, unspecified organism (2) Acute exacerbation of chronic obstructive airways disease Priority: Secondary Status: Acute (3) Lung cancer Priority: Secondary Status: Suspected (4) Hypokalemia Priority: Secondary Status: Resolved (5) Acute respiratory failure with hypoxia Priority: Secondary Status: Acute (6) Constipation Priority: Secondary Status: Acute Qualifiers: Constipation type: drug induced constipation Qualified Code(s): K59.03 - Drug induced constipation (7) Severe muscle deconditioning Priority: Secondary Status: Acute Hospital course: Ms. Mae is a 62 year old female w/ PMH of COPD, anxiety, arthritis, kidney stones, depression, and osteoporosis. -she had some URI symptoms and cough. Cough has been nonproductive and she states that she has been feeling very weak. -The pt states she has a hx of COPD and that she has been having increasing SOB from her baseline. -She doesn't take nebulizers as much as she should, according to her. -pt denies home oxygen use In the ER the pt has a (-) troponin, lactic acid of 0.8. D dimer is 1391 CXR on admission showed Near complete opacification of the left hemithorax, likely related to obstructive atelectasis versus pneumonia,. Multiple lung nodules in right hemithorax , possible metastasis CT chest showed on admission showed -no evidence of acute pulmonary emobli -masslike consolidation at the left hilar/parahilar region, may be related to neoplastic process, atelectasis or infection. -Multiple nodular consolidations in the right hemithorax, Had bronchoscopy 12/24/17 --suspicious left lower lobe lesion , friable mucosa in left upper lobe/left lower lobe -biopsies taken -pathology report still pending -Acid fast stain negative, respiratory culture negative Legionella and s pneumo antigens negative CXR on 12/29/17 showed complete opacification of the left hemithorax As per pulmonology, levoquin for 10 days which was completed while still in the hospital. This was most likely a community acquired pneumonia. -will d/c patient with senna and miralax for constipation -extended presnisone taper. 40 mg PO x 4days, 20mg PO x 4days, 10 mg PO x 4 days , 5mg PO x 4days, then 2.5 mg PO x 4 days -valium for anxiety -pt will need high flow oxygen for home use, SW and nursing setting this up -opiods as per palliative Pt continued to have episodes of SOB and desaturation while in the hospital and during working with PTOT. She has had severe mm deconditioning and has lost weight/strength since being in the hospital. On the morning of the : Pt desaturated to the 70's and had to be turned up on oxygen requirements. She continued to have O2 sat in the upper 80's on 7L of high flow O2. -pt has since stabilized -she has no complaints of increasing SOB or the inability to catch her breath this morning -two nights ago she had one episode of SOB, however, this was very minor in length of the episode Pt wishes to be discharged to residential with hospice. She requires high flow oxygen, which nursing will set up for her. Referral to ECF to follow. Discharge discussed with: patient Time spent discussing smoking cessation with patient: 3 to 10 minutes - Time Spent with Patient Total time spent providing and/or coordinating discharge services: Less than 30 minutes - Discharge Medications Prescriptions: LORazepam [Ativan] 0.5 mg PO Q4HR PRN 4 Days #12 tablet PRN Reason: Anxiety Promethazine [Phenergan] 12.5 mg PO Q6HR PRN 30 Days #30 tablet PRN Reason: Nausea And Vomiting Promethazine Syrup [Phenergan Syrup] 12.5 mg PO Q6HR PRN #90 mls PRN Reason: Nausea diazePAM [Valium] 3 mg PO TID PRN 30 Days #90 tablet PRN Reason: Anxiety Diltiazem CD (24hr) [Cardizem CD] 240 mg PO DAILY 30 Days #30 cap.er.24h MORPHINE SUL Oral CONC [Roxanol Oral Conc] 5 mg PO Q3H PRN 4 Days #10 oral.syg PRN Reason: Dyspnea Nicotine Patch [Nicoderm] 21 mg TD DAILY 30 Days #30 patch.td24 Polyethylene Glycol 3350 [MiraLAX] 17 gm PO DAILY 30 Days #30 powd.pack PredniSONE [Lyndsay] 5 mg PO DAILY 8 Days #6 tablet. PredniSONE [Deltasone] 20 mg PO DAILY 12 Days #14 tablet Sennosides/Docusate Sodium [Senna Plus] 1 each PO BID 30 Days #30 tablet Home Medications: Albuterol Sulfate [Ventolin Hfa] 2 puff IH Q4H PRN 12/23/17 [History] Amitriptyline HCl 150 mg PO HS 12/23/17 [History] Aspirin [Lo-Dose Aspirin EC] 81 mg PO DAILY 12/23/17 [History] Biotin 1 mg PO DAILY 12/23/17 [History] Budesonide/Formoterol 80/4.5 [Symbicort 80/4.5] 2 puff IH BID 12/23/17 [History ] Meloxicam 7.5 mg PO DAILY 12/23/17 [History] Multivitamin [One Daily Essential] 1 tab PO DAILY 12/23/17 [History] Multivits Min/Iron/FA/Herb#186 [Hair, Skin and Nails Caplet] 1 tab PO DAILY 05/11 [History] Omeprazole [PriLOSEC] 20 mg PO DAILY 12/23/17 [History] Prazosin [Minipress] 1 mg PO HS 12/23/17 [History] Tizanidine HCl 2 mg PO Q8H PRN 12/23/17 [History] Trazodone HCl 100 mg PO HS 12/23/17 [History] Turmeric Root Extract [Turmeric] 500 mg PO DAILY 12/23/17 [History] Venlafaxine HCl [Venlafaxine HCl ER] 150 mg PO DAILY 12/23/17 [History] Vitamin B Complex [B Complex] 1 tab PO DAILY 12/23/17 [History] Diltiazem CD (24hr) [Cardizem CD] 240 mg PO DAILY 30 Days #30 cap.er.24h [Rx] Nicotine Patch [Nicoderm] 21 mg TD DAILY 30 Days #30 patch.td24 01/02/18 [Rx] Polyethylene Glycol 3350 [MiraLAX] 17 gm PO DAILY 30 Days #30 powd.pack [Rx] PredniSONE [Deltasone] 20 mg PO DAILY 12 Days #14 tablet 01/02/18 [Rx] PredniSONE [Lyndsay] 5 mg PO DAILY 8 Days #6 tablet.dr 01/02/18 [Rx] Promethazine [Phenergan] 12.5 mg PO Q6HR PRN 30 Days #30 tablet 01/02/18 [Rx] Sennosides/Docusate Sodium [Senna Plus] 1 each PO BID 30 Days #30 tablet [Rx] diazePAM [Valium] 3 mg PO TID PRN 30 Days #90 tablet 01/02/18 [Rx] LORazepam [Ativan] 0.5 mg PO Q4HR PRN 4 Days #12 tablet 01/08/18 [Rx] MORPHINE SUL Oral CONC [Roxanol Oral Conc] 5 mg PO Q3H PRN 4 Days #10 oral.syg 01/08/18 [Rx] Promethazine Syrup [Phenergan Syrup] 12.5 mg PO Q6HR PRN #90 mls 01/08/18 [Rx] Allergies/Adverse Reactions: 3 Allergy/AdvReac Type Severity Reaction Status Date / Time No Known Allergies Allergy Verified 12/23/17 13:19 Date of admission: 12/23/17 14:47 Primary care physician: Shawn Mccoy Consults: 12/26/17 08:43 Consult to Oncology Hematology [CONS] Routine Consulting Provider: Angie Peralta Reason for Consult: possible metastatic cancer, awaiting bx results Call Completed: Yes 12/28/17 11:13 Consult to Palliative Care [CONS] Routine Comment: Consulting Provider: Danisha Gan Reason for Consult: poor prognosis Call Completed: No 01/01/18 16:06 Consult to Occupational Therapy [CONS] Routine Comment: Evaluate, develop and implement POC Reason for Consult: Rehab vs HH at d/c; possible discharge tomorrow Does patient have active BEDREST order?: No Is patient medically & hemodynamically stable?: Yes Consult to Physical Therapy [CONS] Routine Comment: Evaluate, develop and implement POC Reason for Consult: Rehab vs HH at d/; possible discharge tomorrow Does patient have active BEDREST order?: No Is patient medically & hemodynamically stable?: Yes 01/01/18 16:11 Consult to Aquatic Performer [CONS] Routine Reason for SW Consult: Possible rehab at d/; PT/OT to see pateint still; if rehab, patient's first choice is [facility]. 01/04/18 11:53 Consult to Pulmonology [CONS] Routine Consulting Provider: Pulm Crit Care & Sleep [place] Reason for Consult: Lung ca, COPD, change in plans not hospice, now is going home with home health. O2 reccomendations Call Completed: No Discharging clinician: Delroy Cooney Anticipated date of discharge: 01/08/18 - Constitutional Vitals: Temp Pulse Resp BP Pulse Ox 97.6 F 111 21 106/60 93 01/08/18 07:30 01/08/18 07:30 01/08/18 07:30 01/08/18 07:30 01/08/18 07:30 Exam: general - nad, aox3, pleasant, cachexic lungs - on venti mask. Labored breathing when she sits up on exam, decreased breath sounds, poor air exchange, no rales or rhonchi cardio - tacycardia, s1s2, clear to auscultation, no MRG abd - NTND, no rebound or guarding, thin and frail skin - intact, no ulcer, no rash extremities - no edema - Patient Status Disposition: Home Health Service Condition: Fair Functional capacity at discharge: bed bound Overall status at discharge: patient is not back to baseline - Discharge Instructions Instructions: Acute Respiratory Distress Syndrome (DC) Follow Up With: Hortensia Burnett, COMMUNITY DEVELOPMENT DIRECTOR [Advanced Practice Nurse] - 01/10/18 3:00 pm (please arrive 20 minutes early to fill out paper work take photo id and insurance card with you) - Diet and Activity Activity: increase activity as tolerated Diet: advance to your usual diet, regular diet <Madiha Ramos - Last Filed: 01/08/18 17:43> Orders not resulted at time of discharge: Pending orders 12/24/17 09:26 AFB Culture, Respiratory [TB] Routine AFB Smear [TB] Routine Fungal Culture [MYC] Routine 12/24/17 09:31 Cytology [PTH] Routine 12/24/17 09:35 Surgical Pathology [PTH] Routine Date of Encounter: 01/08/18 - Discharge Diagnosis (1) Community acquired pneumonia Status: Acute Qualifiers: Laterality: left Lung location: unspecified part of lung Qualified Code(s ): J18.9 - Pneumonia, unspecified organism (2) Acute exacerbation of chronic obstructive airways disease Status: Acute (3) Lung cancer Status: Suspected Qualifiers: Laterality: unspecified laterality Lung location: unspecified part of lung Qualified Code(s): C34.90 - Malignant neoplasm of unspecified part of unspecified bronchus or lung (4) Hypokalemia Status: Resolved (5) Acute respiratory failure with hypoxia Status: Acute (6) Constipation Status: Acute Qualifiers: Constipation type: drug induced constipation Qualified Code(s): K59.03 - Drug induced constipation (7) Severe muscle deconditioning Status: Acute Hospital course: Ms. Mae is a 62 year old female - Time Spent with Patient Total time spent providing and/or coordinating discharge services: Date of admission: 12/23/17 14:47 Primary care physician: Shawn Mccoy Consults: 12/26/17 08:43 Consult to Oncology Hematology [CONS] Routine Consulting Provider: Angie Peralta Reason for Consult: possible metastatic cancer, awaiting bx results Call Completed: Yes 12/28/17 11:13 Consult to Palliative Care [CONS] Routine Comment: Consulting Provider: Palliative Care Elvia Reason for Consult: poor prognosis Call Completed: No 01/01/18 16:06 Consult to Occupational Therapy [CONS] Routine Comment: Evaluate, develop and implement POC Reason for Consult: Rehab vs HH at d/c; possible discharge tomorrow Does patient have active BEDREST order?: No Is patient medically & hemodynamically stable?: Yes Consult to Physical Therapy [CONS] Routine Comment: Evaluate, develop and implement POC Reason for Consult: Rehab vs HH at d/c; possible discharge tomorrow Does patient have active BEDREST order?: No Is patient medically & hemodynamically stable?: Yes 01/01/18 16:11 Consult to Aquatic Performer [CONS] Routine Reason for SW Consult: Possible rehab at d/c; PT/OT to see pateint still; if rehab, patient's first choice is [facility]. 01/04/18 11:53 Consult to Pulmonology [CONS] Routine Consulting Provider: Pulm Crit Care & Sleep [facility] Reason for Consult: Lung ca, COPD, change in plans not hospice, now is going home with home health. O2 reccomendations Call Completed: No - Constitutional Vitals: Temp Pulse Resp BP Pulse Ox 97.6 F 111 18 106/60 90 01/08/18 07:30 01/08/18 07:30 01/08/18 15:53 01/08/18 07:30 01/08/18 15:53 - Attending Attestation I examined this patient and my medical decision-making was reviewed with the Resident Physician. I agree with the documented findings, disposition and treatment plan as described except to the extent set forth below. Patient switched decision multiple times today in regards to hospice or not. Patient ultimately decided she decided to go to [facility] with [facility].
--- NOTE | 2018-01-08 09:50 | Physician Discharge Referral ---
Home Health/Hosp Referral Info Transfer to: Home Health Provider in Charge Post Discharge: PCP - Diagnosis (1) Community acquired pneumonia Priority: Primary Status: Acute (2) Acute exacerbation of chronic obstructive airways disease Priority: Secondary Status: Acute (3) Lung cancer Priority: Secondary Status: Suspected (4) Hypokalemia Priority: Secondary Status: Resolved (5) Acute respiratory failure with hypoxia Priority: Secondary Status: Acute (6) Constipation Priority: Secondary Status: Acute (7) Severe muscle deconditioning Priority: Secondary Status: Acute - Respiratory Orders Oxygen / L per min Smoking Cessation: Smoking cessation has been advised. For more information, call the [place] Tobacco Quit Line at 9-926-KOOR-NOW. - Diet/Nutrition Diet/Nutrition Orders: Regular - Activity Activity Orders: Bedrest - Services Needed Following services are medically necessary services: Home Health Aide - Transfer Medications Prescriptions: Promethazine [Phenergan] 12.5 mg PO Q6HR PRN 30 Days #30 tablet PRN Reason: Nausea And Vomiting diazePAM [Valium] 3 mg PO TID PRN 30 Days #90 tablet PRN Reason: Anxiety Diltiazem CD (24hr) [Cardizem CD] 240 mg PO DAILY 30 Days #30 cap.er.24h Nicotine Patch [Nicoderm] 21 mg TD DAILY 30 Days #30 patch.td24 Polyethylene Glycol 3350 [MiraLAX] 17 gm PO DAILY 30 Days #30 powd.pack PredniSONE [Lyndsay] 5 mg PO DAILY 8 Days #6 tablet. PredniSONE [Deltasone] 20 mg PO DAILY 12 Days #14 tablet Sennosides/Docusate Sodium [Senna Plus] 1 each PO BID 30 Days #30 tablet Home Medications: Albuterol Sulfate [Ventolin Hfa] 2 puff IH Q4H PRN 12/23/17 [History] Amitriptyline HCl 150 mg PO HS 12/23/17 [History] Aspirin [Lo-Dose Aspirin EC] 81 mg PO DAILY 12/23/17 [History] Biotin 1 mg PO DAILY 12/23/17 [History] Budesonide/Formoterol 80/4.5 [Symbicort 80/4.5] 2 puff IH BID 12/23/17 [History ] Meloxicam 7.5 mg PO DAILY 12/23/17 [History] Multivitamin [One Daily Essential] 1 tab PO DAILY 12/23/17 [History] Multivits Min/Iron/FA/Herb#186 [Hair, Skin and Nails Caplet] 1 tab PO DAILY 05/11 [History] Omeprazole [PriLOSEC] 20 mg PO DAILY 12/23/17 [History] Prazosin [Minipress] 1 mg PO HS 12/23/17 [History] Tizanidine HCl 2 mg PO Q8H PRN 12/23/17 [History] Trazodone HCl 100 mg PO HS 12/23/17 [History] Turmeric Root Extract [Turmeric] 500 mg PO DAILY 12/23/17 [History] Venlafaxine HCl [Venlafaxine HCl ER] 150 mg PO DAILY 12/23/17 [History] Vitamin B Complex [B Complex] 1 tab PO DAILY 12/23/17 [History] Diltiazem CD (24hr) [Cardizem CD] 240 mg PO DAILY 30 Days #30 cap.er.24h [Rx] Nicotine Patch [Nicoderm] 21 mg TD DAILY 30 Days #30 patch.td24 01/02/18 [Rx] Polyethylene Glycol 3350 [MiraLAX] 17 gm PO DAILY 30 Days #30 powd.pack [Rx] PredniSONE [Deltasone] 20 mg PO DAILY 12 Days #14 tablet 01/02/18 [Rx] PredniSONE [Lyndsay] 5 mg PO DAILY 8 Days #6 tablet.dr 01/02/18 [Rx] Promethazine [Phenergan] 12.5 mg PO Q6HR PRN 30 Days #30 tablet 01/02/18 [Rx] Sennosides/Docusate Sodium [Senna Plus] 1 each PO BID 30 Days #30 tablet [Rx] diazePAM [Valium] 3 mg PO TID PRN 30 Days #90 tablet 01/02/18 [Rx] Allergies/Adverse Reactions: 3 Allergy/AdvReac Type Severity Reaction Status Date / Time No Known Allergies Allergy Verified 12/23/17 13:19 Certification: Further, I certify that my clinical findings support that this patient is homebound (i.e. absences from home require considerable and taxing effort and are for medical reasons or caodaism services or infrequently or short duration when for other reasons) because: pt requires head of bed to be elevated more than 30* most of the time due to chronic pulmonary disease Homebound Reason: Patient requires assistance of a person or device to safely leave home, Severity of cardiac or pulmonary status limits activity tolerance Attestation: My signature below is to certify that this patient is under my care and that I, or nurse practitioner, or a physician's certified pathology assistant working with me, has a face-to -face encounter with this patient.
[2018-01-08] MEDS: Sennosides/Docusate Sodium TABLET PO SCH (10:02)
[2018-01-08] MEDS: Diltiazem CD (24hr) 240 MG CAPSULE PO SCH (10:02)
[2018-01-08] MEDS: Aspirin Enteric Coated 81 MG Tablet PO SCH (10:02)
[2018-01-08] MEDS: Venlafaxine XR (24 HR) 150 MG CAP.ER.24H PO SCH (10:03)
[2018-01-08] MEDS: Nicotine 21 MG PATCH.TD24 TD SCH (10:03)
[2018-01-08] MEDS: Nystatin SUSP 5 ML UD.LIQ PO SCH ×2 (10:04→11:48)
--- NOTE | 2018-01-08 10:56 | Palliative Progress Note ---
Date of Encounter: 01/08/18 Time of Encounter: 10:54 - Assessment and plan (1) Goals of care, counseling/discussion Current Visit: Yes Status: Acute Assessment and plan: Discussed with pt, she is aware that she is deteriorating, and understand that she is dying. She does not want to at home as she believes it will be too much for her to bear. She would like hospice at this point, as long as it is set up in a place other than home. and children are not yet aware of her choice, discussion to be completed once they come in this morning. At 13:30, IDT metting with patient, and grand-daughter, in the presence of nurse, socially responsible investment adviser and clinical outsole caser. Explained to pt and family the clinical condition, the rapid decline and the fact that pt at this time has a prognosis of days to weeks. Explained the pt's desire not to at home. Family agrees with patient's decision. Patient has discussed with [facility] today and elected [facility], chose [facility]. Pt to be discharged to ID with Hospice. Code status changed to DNRCC. Emotional support provided. (2) Acute exacerbation of chronic obstructive airways disease Current Visit: Yes Status: Acute Assessment and plan: Antibiotics course completed on Oxygen recommend continue nebulizers Continue Roxanol 5 mg prn for SOB Ativan 0.5 mg IV prn for anxiety Pt is on Senna and lactulose prn (3) Lesion of left lung Current Visit: Yes Status: Acute Assessment and plan: CT revealed hilar lymphadenopathy with L masslike consolidation Concerning for malignancy with lymph node involvement s/p bronchosopy with BAL and endobronchial biopsies on 12/24 Pathology pending, as per lab result may be returned from [facility] early this week. (4) Dyspnea Current Visit: Yes Status: Acute Assessment and plan: Antibiotics course completed on Oxygen Continue nebulizers comfort Pack orders: Continue Roxanol 5 mg prn for SOB Lorazepam 0.5 mg q4hrs prn for anxiety Phenergan 12.5 mg PO q6hrs PRN Senna plus 2 pills BID Miralax qd - Time Spent With Patient Total time spent is greater than 50% face to face with patient, in coordination of care (as documented) at patient's floor/unit and/or counseling patient: Greater than 35 minutes - Subjective Interval history: Patient today was feeling tired, but comfortable. She becomes easily SOB with minimal exertion. - Constitutional Vitals: Abnormal lab results WBC 17.7 K/mcL (4.3-11.1) H 01/06/18 04:35 RDW 15.8 % (11.5-14.5) H 01/06/18 04:35 MPV 8.7 fL (9.4-12.4) L 01/06/18 04:35 Neutrophils # 14.5 K/mcL (1.6-8.9) H 01/06/18 04:35 Monocytes # 1.5 K/mcL (0.0-1.3) H 01/06/18 04:35 Nucleated RBCs/100 WBC 0.2 /100 WBC (0) H 01/01/18 05:03 PT 13.7 Seconds (9.4-12.1) H 12/24/17 03:24 D-Dimer 1391 ng/mLFEU (0-500) H 12/23/17 09:03 Sodium 135 mEq/L (136-145) L 01/06/18 04:35 BUN 38 mg/dL (8-23) H 01/06/18 04:35 Creatinine 0.53 mg/dL (0.60-1.20) L 01/06/18 04:35 BUN/Creatinine Ratio 72 (6-26) H 01/06/18 04:35 Glucose 136 mg/dL (70-105) H 01/06/18 04:35 Alkaline Phosphatase 146 Units/L (34-104) H 01/06/18 04:35 Serum Total Protein 6.2 g/dL (6.4-8.9) L 01/06/18 04:35 Albumin 3.4 g/dL (3.5-5.7) L 01/06/18 04:35 Fluid Appearance Hazy (Clear) A 12/24/17 09:26 Vancomycin Trough 12 mcg/mL (5-10) H 12/27/17 02:45 Mycoplasma pneumon IgG 0.15 U/L (<=0.09) H 12/23/17 15:07 Exam: Sick looking, in no acute distress - Expanded Respiratory Exam Location: decreased breath sounds: Left, wheezes: Left, Right (expiratory) - Cardiovascular Cardiovascular exam: Present: tachycardia - GI/Abdominal GI/Abdominal exam: Present: normal bowel sounds. Absent: tenderness Palliative Quality Palliative Quality: Screen for Code Status: Yes, Screen for Goals of Care: Yes, Screen for Pain: Yes, If Pain Regimen Started, Initiate Bowel Regimen: Yes, Screen for Nausea/Vomitting: Yes Code Status: 12/29/17 09:26 CODE [Resuscitation Status: Active] [RES] Routine Comment: Resuscitation Status: [id number] - Labs CBC & Chem 7: 01/06/18 04:35 01/06/18 04:35 - ABG Interpretation ABG results: PT/INR, D-dimer PT 13.7 Seconds (9.4-12.1) H 12/24/17 03:24 D-Dimer 1391 ng/mLFEU (0-500) H 12/23/17 09:03 Consult Discharge Plan - Plan Referrals: Hortensia Burnett, CLEANING CUSTODIAN [Advanced Practice Nurse] - 01/10/18 3:00 pm (please arrive 20 minutes early to fill out paper work take photo id and insurance card with you) Prescriptions: Promethazine [Phenergan] 12.5 mg PO Q6HR PRN 30 Days #30 tablet PRN Reason: Nausea And Vomiting diazePAM [Valium] 3 mg PO TID PRN 30 Days #90 tablet PRN Reason: Anxiety Diltiazem CD (24hr) [Cardizem CD] 240 mg PO DAILY 30 Days #30 cap.er.24h Nicotine Patch [Nicoderm] 21 mg TD DAILY 30 Days #30 patch.td24 Polyethylene Glycol 3350 [MiraLAX] 17 gm PO DAILY 30 Days #30 powd.pack PredniSONE [Lyndsay] 5 mg PO DAILY 8 Days #6 tablet. PredniSONE [Deltasone] 20 mg PO DAILY 12 Days #14 tablet Sennosides/Docusate Sodium [Senna Plus] 1 each PO BID 30 Days #30 tablet
--- NOTE | 2018-01-08 15:20 | Physician Discharge Referral ---
ExtendedCare Referral Info Transfer To: [facility] Provider in Charge after Transfer: Business Development Analyst Institutional Level of Care: Skilled - Diagnosis (1) Community acquired pneumonia Priority: Primary Status: Acute (2) Acute exacerbation of chronic obstructive airways disease Priority: Secondary Status: Acute (3) Lung cancer Priority: Secondary Status: Suspected (4) Hypokalemia Priority: Secondary Status: Resolved (5) Acute respiratory failure with hypoxia Priority: Secondary Status: Acute (6) Constipation Priority: Secondary Status: Acute (7) Severe muscle deconditioning Priority: Secondary Status: Acute Prognosis: Poor Aware of Diagnosis: Patient, Family Aware of Prognosis: Patient, Family - Transfer Medications Prescriptions: LORazepam [Ativan] 0.5 mg PO Q4HR PRN 4 Days #12 tablet PRN Reason: Anxiety Promethazine [Phenergan] 12.5 mg PO Q6HR PRN 30 Days #30 tablet PRN Reason: Nausea And Vomiting Promethazine Syrup [Phenergan Syrup] 12.5 mg PO Q6HR PRN #90 mls PRN Reason: Nausea diazePAM [Valium] 3 mg PO TID PRN 30 Days #90 tablet PRN Reason: Anxiety Diltiazem CD (24hr) [Cardizem CD] 240 mg PO DAILY 30 Days #30 cap.er.24h MORPHINE SUL Oral CONC [Roxanol Oral Conc] 5 mg PO Q3H PRN 4 Days #10 oral.syg PRN Reason: Dyspnea Nicotine Patch [Nicoderm] 21 mg TD DAILY 30 Days #30 patch.td24 Polyethylene Glycol 3350 [MiraLAX] 17 gm PO DAILY 30 Days #30 powd.pack PredniSONE [Lyndsay] 5 mg PO DAILY 8 Days #6 tablet. PredniSONE [Deltasone] 20 mg PO DAILY 12 Days #14 tablet Sennosides/Docusate Sodium [Senna Plus] 1 each PO BID 30 Days #30 tablet Home Medications: Albuterol Sulfate [Ventolin Hfa] 2 puff IH Q4H PRN 12/23/17 [History] Amitriptyline HCl 150 mg PO HS 12/23/17 [History] Aspirin [Lo-Dose Aspirin EC] 81 mg PO DAILY 12/23/17 [History] Biotin 1 mg PO DAILY 12/23/17 [History] Budesonide/Formoterol 80/4.5 [Symbicort 80/4.5] 2 puff IH BID 12/23/17 [History ] Meloxicam 7.5 mg PO DAILY 12/23/17 [History] Multivitamin [One Daily Essential] 1 tab PO DAILY 12/23/17 [History] Multivits Min/Iron/FA/Herb#186 [Hair, Skin and Nails Caplet] 1 tab PO DAILY 05/11 [History] Omeprazole [PriLOSEC] 20 mg PO DAILY 12/23/17 [History] Prazosin [Minipress] 1 mg PO HS 12/23/17 [History] Tizanidine HCl 2 mg PO Q8H PRN 12/23/17 [History] Trazodone HCl 100 mg PO HS 12/23/17 [History] Turmeric Root Extract [Turmeric] 500 mg PO DAILY 12/23/17 [History] Venlafaxine HCl [Venlafaxine HCl ER] 150 mg PO DAILY 12/23/17 [History] Vitamin B Complex [B Complex] 1 tab PO DAILY 12/23/17 [History] Diltiazem CD (24hr) [Cardizem CD] 240 mg PO DAILY 30 Days #30 cap.er.24h [Rx] Nicotine Patch [Nicoderm] 21 mg TD DAILY 30 Days #30 patch.td24 01/02/18 [Rx] Polyethylene Glycol 3350 [MiraLAX] 17 gm PO DAILY 30 Days #30 powd.pack [Rx] PredniSONE [Deltasone] 20 mg PO DAILY 12 Days #14 tablet 01/02/18 [Rx] PredniSONE [Lyndsay] 5 mg PO DAILY 8 Days #6 tablet.dr 01/02/18 [Rx] Promethazine [Phenergan] 12.5 mg PO Q6HR PRN 30 Days #30 tablet 01/02/18 [Rx] Sennosides/Docusate Sodium [Senna Plus] 1 each PO BID 30 Days #30 tablet [Rx] diazePAM [Valium] 3 mg PO TID PRN 30 Days #90 tablet 01/02/18 [Rx] LORazepam [Ativan] 0.5 mg PO Q4HR PRN 4 Days #12 tablet 01/08/18 [Rx] MORPHINE SUL Oral CONC [Roxanol Oral Conc] 5 mg PO Q3H PRN 4 Days #10 oral.syg 01/08/18 [Rx] Promethazine Syrup [Phenergan Syrup] 12.5 mg PO Q6HR PRN #90 mls 01/08/18 [Rx] Allergies/Adverse Reactions: 3 Allergy/AdvReac Type Severity Reaction Status Date / Time No Known Allergies Allergy Verified 12/23/17 13:19 - Respiratory Orders Oxygen / L per min Smoking Cessation: Smoking cessation has been advised. For more information, call the [place] Tobacco Quit Line at 6-398-AFWA-NOW. - Advance Directives Code Status: DNR-Comfort Care - Mobility Orders Bedrest - Rehabiliation Orders Rehab Potential: Poor Rehab Orders: Evaluation for Physical Therapy - Diet Orders Regular CERTIFICATION: I certify that the transfer of the above named patient to an Extended Care Facility is necessary for the continuing treatment of the diagnosis listed. The above information is true and accurate reflection of patient's current condition. Confidential - Redisclosure prohibited without a patient's written consent.
== END 2018-01-08 17:17 | disposition home health service (06) | DRG 853 ==
LOC: EMEROOARM 08:35 → 2NENU 08:35 → SUATTDRO 14:47
PROVIDERS: ADMIT Student in an Organized Health Care Education/Training Program; ATTEND Student in an Organized Health Care Education/Training Program